=== PATIENT | female | born 1930 | race Caucasian/White ===

== ENCOUNTER 2016-09-29 05:10 | Inpatient (IN) | payer OTHER ==
[2016-09-28 15:11] VITALS: BMI 29.0
--- NOTE | 2016-09-28 21:21 | HISTORY & PHYSICAL EXAMINATION ---
DATE OF ADMISSION: 09/29/2016 CHIEF COMPLAINT: Left shoulder injury. HISTORY OF PRESENT ILLNESS: This is an 86-year-old female patient of Dr. Rutherford'ivory complaining of a fall on 09/23/2016 in her halfway facility at [facility]. She apparently fell in the hallway. She was diagnosed with a 100% displaced proximal humerus fracture and wishes to proceed with an ORIF versus fracture reversed TSA. PAST MEDICAL HISTORY: The patient is a healthy 86-year-old female. She has no heart problems, lung problems, diabetes or cancer history. SOCIAL HISTORY: Nonsmoker, nondrinker. REVIEW OF SYSTEMS: The patient complains of left shoulder pain. Otherwise, denies any shortness of breath, chest pain, nausea, vomiting or any other joint complaints. FAMILY HISTORY: Noncontributory. MEDICATIONS: Include cholecalciferol 1000 units daily, Donepezil 5 mg daily, a laxative powder as needed daily, a multivitamin daily, nystatin powder to the affected area topically as needed, oxybutynin 5 mg daily at bedtime, sertraline 25 mg daily in the morning, and Tylenol 325 mg as needed. ALLERGIES: No known drug allergies. PHYSICAL EXAMINATION: GENERAL: Well-developed, well-nourished 86-year-old female in no acute distress. She is alert and oriented x3 and pleasant. HEENT: Normocephalic, atraumatic. Extraocular motions are intact. Pupils are equal and reactive to light. HEART: Regular rate and rhythm, no murmurs appreciated. LUNGS: Clear. ABDOMEN: Soft, nontender, bowel sounds present. EXTREMITIES: Left humerus. Skin was intact. She had some ecchymosis over the fracture area. Range of motion and strength were deferred in the left upper extremity. NEUROLOGIC: Neurovascularly, she is intact in her left upper extremity. DIAGNOSES: Left proximal humerus fracture with a healthy history. No heart problems, lung problems, diabetes or cancer history. PLAN: The patient was advised of her diagnosis. Indications, risks, benefits, postop course have all been reviewed. Hope Craven wishes to proceed with a left humerus proximal ORIF versus possible reverse fracture, total shoulder arthroplasty. Necessary consent forms, preoperative testing and clearances will be obtained. HEMANTH
--- NOTE | 2016-09-28 22:52 | HISTORY & PHYSICAL EXAMINATION ---
DATE OF ADMISSION: CHIEF COMPLAINT: Left arm fracture. HISTORY OF PRESENT ILLNESS: This is an 86-year-old female patient of Dr. Fraga, complaining of a left humerus injury after a fall. The patient wishes to proceed with a left humerus proximal ORIF with a possible reverse total shoulder arthroplasty. PAST MEDICAL HISTORY: She is a healthy 86-year-old female with no health problems. SOCIAL HISTORY: Nonsmoker, nondrinker. SURGICAL HISTORY: Noncontributory. FAMILY HISTORY: Noncontributory. REVIEW OF SYSTEMS: The patient complains of left humerus fracture. Otherwise, denies any shortness of breath, chest pain, nausea, vomiting or any joint complaints. MEDICATIONS: Include ____ and a multivitamin. PHYSICAL EXAMINATION: GENERAL: Well-developed, well-nourished 86-year-old female in no acute distress. She is alert and oriented x3 and pleasant. HEENT: Normocephalic, atraumatic. Extraocular motions are intact. Pupils are equal and reactive to light. HEART: Regular rate and rhythm, no murmurs appreciated. LUNGS: Clear. ABDOMEN: Soft, nontender, bowel sounds present. EXTREMITIES: Left shoulder range of motion and strength testing were deferred. NEUROLOGIC: Neurovascularly, she is intact in her left humerus. DIAGNOSIS: Left proximal humerus fracture. Otherwise, she is a healthy 86-year-old female with no heart problems, lung problems, diabetes or cancer history. PLAN: The patient was advised of her diagnosis. Indications, risks, benefits, postop course have all been reviewed. The patient wishes to proceed with left humerus ORIF with possible reverse fracture TSA. Necessary consent forms, preoperative testing and clearances will be obtained.
[~2016-09-29] VITALS: Ht 152.4 cm; Wt 67.3 kg
[2016-09-29] VITALS (9 sets, daily range): BP systolic 127–175; BP diastolic 72–80; PULSE 81–93; TEMP 36.5–37.2; O2SAT 93–99; Ht 152.4 cm; Wt 67.3 kg
[~2016-09-29 05:10] MED LIST: ACET-1311 PO; CHOL100010 PO; DONE5TAB9 PO; METH PO; MULT-513 PO; NYSTCRE11 TOP; OXYB5TAB74 PO; SERT25TA PO
[2016-09-29 06:02] LABS: PARTIAL THROMBOPLASTIN RATIO 1.1
[2016-09-29 06:13] LABS: BUN/CREATININE RATIO 13.6 (10-20); CALCIUM 9.1 mg/dl (8.5-10.1); CREATININE 0.91 mg/dl (0.60-1.20); POTASSIUM 3.9 mmol/L (3.5-5.1)
[2016-09-29] MEDS ORDERED: ROPIVACAINE 0.5% 5 MG/ML 30 ML VIAL ONE (06:15)
[2016-09-29] MEDS ORDERED: BUPIVACAINE/EPINEPHRINE 0.25% 1:200,000 30 ML VIAL ONE (06:16)
[2016-09-29] MEDS ORDERED: MIDAZOLAM HCL 1 MG/ML 2ML VIAL ONE (06:26)
[2016-09-29] MEDS ORDERED: FENTANYL CITRATE INJ 50 MCG/1 ML 2 ML VIAL ONE (06:29)
[2016-09-29] MEDS ORDERED: BACITRACIN 50000 UNIT VIAL ONE (06:53)
[2016-09-29] MEDS ORDERED: ACETAMINOPHEN 500 MG TAB PO ONE (06:56)
[2016-09-29] MEDS ORDERED: DEXAMETHASONE 4 MG TAB ONE (06:56)
[2016-09-29] MEDS ORDERED: CeleBREX 200 MG CAP ONE (06:56)
[2016-09-29] MEDS ORDERED: CEFAZOLIN SOD 1000MG/55 ML D5W IV ONE (06:57)
[2016-09-29] MEDS ORDERED: GABAPENTIN 300 MG CAP PO ONE (06:57)
[2016-09-29] MEDS ORDERED: FAMOTIDINE 20 MG TAB ONE (06:57)
[2016-09-29] MEDS ORDERED: METOCLOPRAMIDE HCL 10 MG TAB PO ONE (06:57)
--- NOTE | 2016-09-29 07:07 | History & Physical Bridge Note ---
H&P Re-Evaluation Bridge Note: I have examined the patient, reviewed the History & Physical and in the interval since the performance of the History & Physical I have noted the following changes of clinical significance: No changes noted
[2016-09-29] MEDS ORDERED: EpHEDrine SULFATE INJ 50 MG/ML AMP IV PRN (07:45)
[2016-09-29] MEDS ORDERED: FENTANYL CITRATE INJ 50 MCG/1 ML 2 ML VIAL IV PRN (07:45)
[2016-09-29] MEDS ORDERED: ATROPINE SULFATE 0.1 MG/ML 5ML SYR IV PRN (07:45)
[2016-09-29] MEDS ORDERED: ONDANSETRON INJ 2 MG/ML 2 ML VIAL IV PRN ×2 (07:45→10:00)
[2016-09-29] MEDS ORDERED: HYDROmorphone INJ 1 MG/ML SYR IV PRN (07:45)
[2016-09-29] MEDS ORDERED: PROPOFOL IV EMULSION 10 MG/ML 20 ML VIAL IV ONE (08:04)
[2016-09-29] MEDS ORDERED: LIDOCAINE HCL 2% 2 ML VIAL (20MG/ML) ONE (08:04)
[2016-09-29] MEDS ORDERED: DEXAMETHASONE SOD INJ 4 MG/ML VIAL ONE (08:04)
[2016-09-29] MEDS ORDERED: PHENYLEPHRINE HCL INJ 10 MG/ML VIAL ONE (08:04)
[2016-09-29] MEDS ORDERED: ONDANSETRON INJ 2 MG/ML 2 ML VIAL ONE (08:04)
[2016-09-29] MEDS ORDERED: PHENYLEPHRINE 100MCG/ML 5ML SYR ONE (08:04)
[2016-09-29] MEDS ORDERED: ROCURONIUM BROMIDE 10 MG/ML 5 ML VIAL ONE (08:04)
--- NOTE | 2016-09-29 09:34 | DIAGNOSTIC IMAGING REPORT ---
INTRAOPERATIVE LEFT HUMERUS 2 VIEWS CLINICAL HISTORY: Fracture status post surgery COMPARISON STUDY: No previous studies for comparison. FINDINGS: 2 intraoperative fluoroscopic spot images are provided for interpretation. 103 seconds of fluoroscopic time was utilized. The images demonstrate internal fixation of a proximal left humeral fracture with a lateral metallic plate and multiple screws. IMPRESSION: Internally fixated proximal left humeral fracture. Electronically signed by: Kingsley Myrick M.D. 09/29/2016 9:33 AM Dictated Date/Time: 09/29/2016 9:32 AM
--- NOTE | 2016-09-29 09:41 | [facility] Operative Report ---
Operative Report Operative Date Sep 29, 2016. Pre-Operative Diagnosis Left proximal humerus fracture diplaced comminuted Post-Operative Diagnosis same Procedure(s) Performed ORIF Synthes locking plate/screws biceps tenodesis Surgeon Dr. Rutherford Team Coordinator Surgeon(s) Shaji Elder PA-C Estimated Blood Loss 30 mL Findings comminuted angulated and displaced PROXIMAL HUMERUS FX Specimens No pathology specimens per surgeon Drains 2 hemovac Anesthesia general and regional Complication(s) None Disposition Recovery Room / PACU Indications unstable displaced proximal humerus fx I attest to the content of the Intraoperative Record and any orders documented therein. Any exceptions are noted below.
[2016-09-29] MEDS ORDERED: ZOLPIDEM TARTRATE 5 MG TAB PO PRN (10:00)
[2016-09-29] MEDS ORDERED: SOD PHOSPHATE/SOD BIPHOSPHATE ENEMA 132 ML BTL PR PRN (10:00)
[2016-09-29] MEDS ORDERED: MAGNESIUM HYDROXIDE SUSP 30 ML UDC PO PRN (10:00)
[2016-09-29] MEDS ORDERED: BISACODYL 10 MG SUPP PR PRN (10:00)
[2016-09-29] MEDS ORDERED: MoRPHine SULFATE 2 MG/ML CARP IV PRN (10:00)
[2016-09-29] MEDS ORDERED: TRAMADOL HCL 50 MG TAB PO PRN (10:00)
--- NOTE | 2016-09-29 11:31 | Anesthesiology Progress Note ---
Anesthesia Post Op Note Date & Time Sep 29, 2016 at 11:31 Vital Signs Pain Intensity: 0 Vital Signs Past 12 Hours Date Time Temp Pulse Resp B/P Pulse Ox O2 Delivery O2 Flow Rate FiO2 09/29/16 10:40 36.6 83 16 155/81 98 Nasal Cannula 2 09/29/16 10:30 36.6 82 16 150/72 98 Nasal Cannula 2 09/29/16 10:20 83 16 147/74 100 Mask 10 09/29/16 10:10 83 16 155/73 100 Mask 10 09/29/16 10:00 36.5 86 16 183/91 100 Mask 10 09/29/16 05:41 36.6 81 18 175/76 93 Room Air Notes Mental Status: alert / awake / arousable, participated in evaluation Pt Amnestic to Procedure: Yes Nausea / Vomiting: adequately controlled Pain: adequately controlled Airway Patency, RR, SpO2: stable & adequate BP & HR: stable & adequate Hydration State: stable & adequate Anesthetic Complications: no major complications apparent
[2016-09-29] MEDS: D5W AND 1/2NSS + 20MEQ KCL 1,000 ML IV SCH ×2 (12:15→21:36)
[2016-09-29] MEDS: NYSTATIN/TRIAMCINOLONE CR 15 GM TUBE EXT SCH ×3 (13:00→21:00)
--- NOTE | 2016-09-29 13:15 | OPERATIVE REPORT ---
DATE OF OPERATION: 09/29/2016 INDICATION FOR PROCEDURE: The patient is a reasonably healthy 86-year-old female. She suffered a fall and fractured her left humerus. She had a closed proximal humerus fracture. She sustained a fracture of the proximal humerus with 100% displacement and the humeral head angulated posteriorly off the shaft. There was also some neck comminution noted. She has some osteopenia of the bones. The patient is in reasonably good health. No major medical problems and after extensive discussion with her family and the patient, it was felt that she would be better served by a surgical intervention than allowing the fracture to remain in this significantly displaced position with the risks of malunion, nonunion and/or chronic pain and clearly decreased use of her arm in the future. PREOPERATIVE DIAGNOSIS: Displaced comminuted proximal humerus fracture, left shoulder. POSTOPERATIVE DIAGNOSIS: Same. PROCEDURE: Open reduction and internal fixation of left proximal humerus fracture using a Synthes locking plate and screw fixation and suture repair of posterior greater tuberosity, including a biceps tenodesis. SURGEON: Dr. Rutherford. ETCHER HAND: Shaji Elder PA-C. ANESTHESIA: Regional block general. OPERATIVE PROCEDURE: The patient had regional block and general anesthetic. She was positioned on the operating room table in a 30-40 degree beach chair position with a towel roll in the medial border of her left scapula. She was positioned on a foam headrest. We did support her head with some foam and tape. She had a Leon catheter placed. She had SCDs placed. All extremities were satisfactorily padded. The left shoulder was then sterilely prepped and draped with ChloraPrep. I used fluoroscopy brought in from the top of the bed on the ipsilateral side, using the C-arm to visualize the procedure as needed. Exam demonstrates she had a foreshortened arm with the shaft displaced anteriorly with respect to the humeral head and ecchymosis and swelling about the shoulder. An anterior deltopectoral approach was performed. Skin was incised sharply. Subcutaneous flaps were elevated. Subcutaneous bleeders were cauterized. The cephalic vein was dissected out and retracted laterally with the deltoid, pectoralis was retracted medially. The shaft was significantly proximally migrated, so I had to pull that on the shaft to help with the exposure. I identified the upper pectoralis and falciform ligament and released the upper centimeter of the pectoralis for inferior exposure. I released the thickened clavipectoral fascia on the lateral margin of the strap muscles and conjoined tendon and resected some of the subacromial bursa, evacuated some old hematoma and then placed a self-retaining retractor in place. At this time, I dissected down along the shaft lateral to the pectoralis attachment, elevating the deltoid off the shaft for placement of the plate. Then I dissected out the fracture site which was comminuted and the fracture was below the level of the anatomic neck. It was a medial spike on the humeral head fragment. There were some comminuted fracture fragments that were attached to the infraspinatus and teres minor and the whole cuff tissue was still intact over the superior humeral head. The humerus was displaced posterior to the shaft, so I had to first use a rongeur and remove some of the callus and then used a periosteal elevator to free up the edges of the fracture and then had to use a [place] elevator to lever the proximal fracture up over the shaft and then we used 1 general assistant for retraction distally to put traction on the shoulder and the general assistant held retractors and then I put traction sutures in the rotator cuff anteriorly and posteriorly, superiorly and I was able to tilt back the humeral head back over the shaft, get a provisional x-ray, identify the reduction to be satisfactory and then chose a 5-hole 3.5 mm Synthes locking plate, proximal humeral fracture plate. I chose the longer plate just because of the comminution and/or osteopenia. Then we held the plate in position while we used the fluoroscopy and then put 2 K-wires into the humeral head to hold the plate to the head at the appropriate height and then went ahead and used a 3.5 cortical lag screw to lag the plate through one of the oval holes to the shaft. The humeral head just had 2 degrees of varus and some impaction but I felt with the amount of comminution that she had, this was the best we could get in terms of reduction and I felt that it was satisfactory, so I went ahead and placed locking screws into the proximal humerus. We were able to use all the proximal humeral locking screws into the humeral head besides 1 screw posteriorly where the bone had fractured away from the posterior head along with the infraspinatus attachment there. The remainder of the locking screws were placed into the shaft. The arm was taken through range of motion and we identified all the screws to be within the head on fluoroscopy and with a gentle range of motion, there was good rotational stability of the fracture. At this point, I used a #2 FiberWire, placed a Michael-Darian suture around the greater tuberosity fracture fragment posteriorly and placed that through one of the holes in the plate and sutured that to the plate and then we also sutured the anterior superior cuff with a #1 Vicryl to the posterior cuff, suturing those Vicryls across the plate to help take tension off the posterior repair of the tuberosity fragment. After irrigation with antibiotic solution with bacitracin, 2 Hemovac drains were placed. During the reduction, the biceps was tenting over the fracture, had some damage to the biceps tendon and was impeding our reduction, so I did have to tenodese the biceps which I tenodesed to the pectoralis tendon with #2 FiberWire suture in [id number] fashion and then resected the biceps proximal to that level. At the end of the procedure, we did repair the pectoralis release with [id number] #2 FiberWire sutures, passing the sutures through the biceps tendon to reinforce the biceps tenodesis. The Hemovac drains were placed deep to the deltopectoral interval and the deltopectoral interval was then closed with [id number] #1 Vicryl sutures. The subcutaneous tissue closed with interrupted 2-0 Vicryl and skin was closed with haroon. Sterile dressings were applied and a Velpeau shoulder immobilizer sling was applied. FRANCISCO Malloy, was my speech therapy assistant. He functioned as speech therapy assistant the entire procedure. He assisted in patient positioning, prepping, draping, arm positioning, soft tissue retraction, assisted in the ORIF as needed and performed the subcutaneous and skin closure and will participate in postoperative care of the patient. I attest to the content of the Intraoperative Record and any orders documented therein. Any exceptio ns are noted below.
[2016-09-29] MEDS: ACETAMINOPHEN 500 MG TAB PO SCH ×2 (13:41→21:36)
[2016-09-29] MEDS: CEFAZOLIN IV 1,000 MG in DEXTROSE 5% 50ML 50 ML IV SCH ×2 (15:53→23:17)
--- NOTE | 2016-09-29 15:53 | Medical Consult ---
"Consultation Date of Consultation: Sep 29, 2016. Attending Physician: Wil Rutherford M.D. Reason for Consultation: Post Op Medical Management History of Present Illness 86 year old female who suffered a fall on 09/23 at [facility] and was diagnosed with a displace left proximal humerus fracture. Patient was evaluated by orthopedics as an outpatient elected to proceed with ORIF today. Post operatively the patient is doing well. She reports her pain is well controlled. She denies chest pain and shortness of breath. No lightheadedness or dizziness. She denies abdominal pain, nausea, and vomiting. Sensation is intact to LUE. Bales is place draining clear yellow urine. Past Medical/Surgical History Medical Problems: (1) Dementia Status: Chronic (2) Depression Status: Chronic Family History Noncontributory due to advanced age Social History Smoking Status: Never Smoker Alcohol Use: none Housing Status: snf Allergies Coded Allergies: No Known Allergies (Unverified , 09/29/16) Home Medications \\Tylenol (Acetaminophen) 325 Mg Tab 650 Mg PO Q6H PRN Methylcellulose 1 Pow Pow 2 Gm PO DAILY Mycogen || (Nystatin/Triamcinolone Acetonide) Cr 1 Appln TOP QID Mvi With Minerals (Multivitamins/Minerals) Tab 1 Tab PO DAILY Ditropan (Oxybutynin Chloride) 5 Mg Tab 5 Mg PO BID Vitamin D (Cholecalciferol) 1,000 Inter.unit Tab 1,000 Inter.unit PO DAILY Zoloft (Sertraline HCl) 25 Mg Tab 25 Mg PO DAILY Aricept (Donepezil HCl) 5 Mg Tab 5 Mg PO DAILY TAKE THIS MEDICATION ONCE DAILY WITH LARGEST MEAL OF THE DAY Current Inpatient Medications Current Inpatient Medications Medications (Trade) Dose Ordered Sig/Hudson Route Start Time Stop Time Status Last Admin Dose Admin Cholecalciferol (Vitamin D Tab) 1,000 inter.unit DAILY PO 09/30/16 09:00 10/30/16 08:59 Donepezil HCl (Aricept Tab) 5 mg DAILY PO 09/30/16 09:00 10/30/16 08:59 Nystatin/ Triamcinolone Acetonide (Mycogen II Crm) 1 appln QID EXT 09/29/16 13:00 10/29/16 12:59 Oxybutynin Chloride (Ditropan Tab) 5 mg BID PO 09/29/16 21:00 10/29/16 20:59 Sertraline HCl (Zoloft Tab) 25 mg DAILY PO 09/30/16 09:00 10/30/16 08:59 Methylcellulose 2 gm 2 gm DAILY PO 09/30/16 09:00 10/30/16 08:59 Potassium Chloride/Dextrose/ Sod Cl (D5W And 1/2nss + 20meq KCl) 1,000 ml @ 100 mls/hr Q10H IV 09/29/16 11:30 09/30/16 11:29 09/29/16 12:15 100 MLS/HR Oxycodone HCl (Roxicodone Immediate Rel Tab) 1-2 TABS FOR PAIN 1 TABLET ... Q4H PRN PO 09/29/16 10:00 10/13/16 09:59 Morphine Sulfate (MoRPHine SULFATE INJ) 2 mg Q2H PRN IV 09/29/16 10:00 10/13/16 09:59 Acetaminophen (Tylenol Tab) 1,000 mg Q8H PO 09/29/16 14:00 10/29/16 13:59 Magnesium Hydroxide (Milk Of Magnesia Susp) 30 ml Q6H PRN PO 09/29/16 10:00 10/29/16 09:59 Bisacodyl (Dulcolax Supp) 10 mg DAILY PRN LA 09/29/16 10:00 10/29/16 09:59 Sodium Biphosphate/ Sodium Phosphate (Fleet Enema) 132 ml DAILY PRN LA 09/29/16 10:00 10/29/16 09:59 Docusate Sodium (coLACE CAP) 100 mg BID PO 09/29/16 21:00 10/29/16 20:59 Diphenhydramine HCl (Benadryl Cap) 25 mg Q8H PRN PO 09/29/16 10:00 10/29/16 09:59 Zolpidem Tartrate (Ambien Tab) 5 mg HSZ PRN PO 09/29/16 10:00 10/29/16 09:59 Multivitamins (Multivitamin Tab) 1 tab QAM PO 09/30/16 09:00 10/30/16 08:59 Ondansetron HCl (Zofran Inj) 4 mg Q6H PRN IV 09/29/16 10:00 10/29/16 09:59 Pantoprazole Sodium 40 mg 40 mg QAM PO 09/30/16 09:00 10/30/16 08:59 Cefazolin Sodium/ Dextrose (Ancef Iv/D5 50ml) 55 ml @ 100 mls/hr Q8H IV 09/29/16 16:00 09/30/16 00:32 Aspirin (Ecotrin Tab) 325 mg DAILY PO 09/30/16 09:00 10/30/16 08:59 Tramadol HCl (Ultram Tab) 50 mg Q4H PRN PO 09/29/16 10:00 10/29/16 09:59 Review of Systems 10 point review of systems was completed with the pertinent positives and negatives noted per the HPI Physical Exam Date Time Temp Pulse Resp B/P Pulse Ox O2 Delivery O2 Flow Rate FiO2 09/29/16 15:03 36.5 93 16 128/72 97 Nasal Cannula 2.0 09/29/16 14:08 89 16 127/78 98 2.0 09/29/16 13:00 86 18 138/75 97 Nasal Cannula 2.0 09/29/16 11:59 36.5 81 16 152/80 98 2.0 09/29/16 11:31 36.5 84 16 151/76 97 2.0 09/29/16 11:00 37.0 83 16 158/78 97 Nasal Cannula 2.0 09/29/16 11:00 97 Nasal Cannula 2.0 09/29/16 11:00 Nasal Cannula 2.0 09/29/16 10:40 36.6 83 16 155/81 98 Nasal Cannula 2 09/29/16 10:30 36.6 82 16 150/72 98 Nasal Cannula 2 09/29/16 10:20 83 16 147/74 100 Mask 10 09/29/16 10:10 83 16 155/73 100 Mask 10 09/29/16 10:00 36.5 86 16 183/91 100 Mask 10 09/29/16 05:41 36.6 81 18 175/76 93 Room Air General Appearance: no apparent distress Head: normocephalic Eyes: normal inspection ENT: hearing grossly normal Neck: supple, no JVD Respiratory/Chest: lungs clear, no respiratory distress, + decreased breath sounds (BL bases) Cardiovascular: regular rate, rhythm, no edema, normal peripheral pulses Abdomen/GI: normal bowel sounds, non tender, soft Genitourinary - Female: + pertinent finding (bales in place draining clear yellow urine) Extremities/Musculoskelatal: + pertinent finding (s/p LUE surgery, surgical dressing dry and intact, drain in place draining bloody drainage, CSM checks intact to LUE) Neurologic/Psych: no motor/sensory deficits, alert, + disoriented (to time) Skin: normal color, warm/dry Laboratory Results Last 24 Hours Test 09/29/16 05:40 Activated Partial Thromboplast Time 28.5 SECONDS Partial Thromboplastin Ratio 1.1 Sodium Level 141 mmol/L Potassium Level 3.9 mmol/L Chloride Level 101 mmol/L Carbon Dioxide Level 28 mmol/L Anion Gap 12.0 mmol/L Blood Urea Nitrogen 12 mg/dl Creatinine 0.91 mg/dl Est Creatinine Clear Calc Drug Dose 36.6 ml/min Estimated GFR () 65.3 Estimated GFR (Non- 56.3 BUN/Creatinine Ratio 13.6 Random Glucose 95 mg/dl Calcium Level 9.1 mg/dl Assessment & Plan S/P LEFT HUMERUS ORIF - patient s/p fall on 09/23 at [facility], found to have displaced left humerus fracture, presented for planned procedure today - POD#0 - activity and wound care orders as per ortho - pain control with bowel regimen - PT/OT - monitor H/H for acute blood loss anemia and transfuse blood products PRN DEMENTIA, DEPRESSION - continue donepezil and sertraline DVT PROPHYLAXIS - deferred to ortho Thank you for this consultation. We will follow the patient with you during their hospital stay. You can reach a [facility] via pager @ . ATTENDING ADDENDUM: I agree with the assessment and plan as stated above with the following exceptions. The patient has VSS and is sleepy but is easily aroused and conversing with me. She appears appropriate. Lung sounds are difficult to auscultate as she has her arm in a sling and is not moving much in her fresh post-op state. On my auscultation, she is clear with good breath sounds throughout. Agree with current management as stated above and per Ortho. Thank you for this consultation. We will follow her through this hospitalization. Shy Arora DO Hospitalist"
[2016-09-29] MEDS: DOCUSATE SODIUM 100 MG CAP PO SCH (20:42)
[2016-09-29] MEDS: OXYBUTYNIN CHLORIDE 5 MG TAB PO SCH (20:42)
[2016-09-30] VITALS (7 sets, daily range): BP systolic 136–173; BP diastolic 75–82; PULSE 76–94; TEMP 36.5–37.4; O2SAT 92–98
[2016-09-30] MEDS: OXYCODONE HCL IR 5 MG TAB (IMMEDIATE RELEASE) PO PRN ×2 (00:17→03:52)
[2016-09-30] MEDS: ACETAMINOPHEN 500 MG TAB PO SCH ×3 (05:38→22:06)
[2016-09-30 05:57] LABS: HEMATOCRIT 33.7 % (37-47); MEAN CELL VOLUME 88.7 fL (80-100); MEAN CORPUSCULAR HGB CONC 33.8 g/dl (32-36); MEAN PLATELET VOLUME 9.9 fL (7.4-10.4); PLATELET COUNT 303 K/uL (130-400); WHITE BLOOD COUNT 10.84 K/uL (4.8-10.8)
[2016-09-30 06:27] LABS: BUN/CREATININE RATIO 18.4 (10-20); CALCIUM 8.5 mg/dl (8.5-10.1); CREATININE 0.84 mg/dl (0.60-1.20); POTASSIUM 4.6 mmol/L (3.5-5.1)
[2016-09-30] MEDS: D5W AND 1/2NSS + 20MEQ KCL 1,000 ML IV SCH (07:35)
--- NOTE | 2016-09-30 08:04 | Orthopedic Progress Note ---
Orthopedic Progress Note Date of Service Sep 30, 2016. Subjective Post OP Day: 1 Reports: feeling well, Denies: SOB, chest pain, nausea / vomiting Additional Notes: Pleasantly confused this AM. No complaints. States that her pain has been controlled in the left shoulder. Objective capillary refill less than 2 sec., dressing C/D/I, CMS intact Sling in place. Moving fingers well. Sensation intact. Date Time Temp Pulse Resp B/P Pulse Ox O2 Delivery O2 Flow Rate FiO2 09/30/16 07:11 Room Air 09/30/16 03:55 136/82 09/30/16 03:10 37.4 82 16 172/81 98 Nasal Cannula 2.0 09/29/16 22:55 36.8 85 16 143/78 98 Nasal Cannula 2.0 09/29/16 19:30 Nasal Cannula 2.0 09/29/16 19:17 37.2 85 16 131/76 99 Nasal Cannula 1.5 09/29/16 15:15 Nasal Cannula 2.0 09/29/16 15:03 36.5 93 16 128/72 97 Nasal Cannula 2.0 09/29/16 14:08 89 16 127/78 98 2.0 09/29/16 13:00 86 18 138/75 97 Nasal Cannula 2.0 09/29/16 11:59 36.5 81 16 152/80 98 2.0 09/29/16 11:31 36.5 84 16 151/76 97 2.0 09/29/16 11:00 37.0 83 16 158/78 97 Nasal Cannula 2.0 09/29/16 11:00 97 Nasal Cannula 2.0 09/29/16 11:00 Nasal Cannula 2.0 09/29/16 10:40 36.6 83 16 155/81 98 Nasal Cannula 2 09/29/16 10:30 36.6 82 16 150/72 98 Nasal Cannula 2 09/29/16 10:20 83 16 147/74 100 Mask 10 09/29/16 10:10 83 16 155/73 100 Mask 10 09/29/16 10:00 36.5 86 16 183/91 100 Mask 10 Laboratory Results 24 Hours: Test 09/30/16 05:10 Hematocrit 33.7 % Hemoglobin 11.4 g/dL Assessment & Plan Assessment: POD 1 s/p ORIF Left Proximal Humerus/greater tuberosity; Biceps tenodesis Plan: PT/OT for ambulation Pain management. Inhouse Planning Pain Management: Ultram, Morphine, Oxy IR DVT Prophylaxis: TEDs, SCDs, ASA
--- NOTE | 2016-09-30 08:40 | Anesthesiology Progress Note ---
Anesthesia Post Op Note Date & Time Sep 30, 2016 at 08:40 Vital Signs Pain Intensity: 0.0 Vital Signs Past 12 Hours Date Time Temp Pulse Resp B/P Pulse Ox O2 Delivery O2 Flow Rate FiO2 09/30/16 07:58 36.7 76 18 152/77 94 Room Air 09/30/16 07:11 Room Air 09/30/16 03:55 136/82 09/30/16 03:10 37.4 82 16 172/81 98 Nasal Cannula 2.0 09/29/16 22:55 36.8 85 16 143/78 98 Nasal Cannula 2.0 Notes Mental Status: alert / awake / arousable, participated in evaluation Pt Amnestic to Procedure: Yes Nausea / Vomiting: adequately controlled Pain: adequately controlled Airway Patency, RR, SpO2: stable & adequate BP & HR: stable & adequate Hydration State: stable & adequate Neuraxial Anesthesia: sensory block resolved Anesthetic Complications: no major complications apparent
[2016-09-30] MEDS: DONEPEZIL HCL 5 MG TAB PO SCH (08:57)
[2016-09-30] MEDS: ASPIRIN 325 MG ECTAB PO SCH (08:57)
[2016-09-30] MEDS: SERTRALINE HCL 50 MG TAB PO SCH (08:57)
[2016-09-30] MEDS: METHYLCELLULOSE POWDER 454 GM JAR PO SCH (08:58)
[2016-09-30] MEDS: CHOLECALCIFEROL 1000 INTER.UNIT TAB PO SCH (08:58)
[2016-09-30] MEDS: MULTIVITAMIN TAB PO SCH (08:58)
[2016-09-30] MEDS: NYSTATIN/TRIAMCINOLONE CR 15 GM TUBE EXT SCH ×4 (08:58→20:45)
[2016-09-30] MEDS: OXYBUTYNIN CHLORIDE 5 MG TAB PO SCH ×2 (08:58→20:46)
[2016-09-30] MEDS: DOCUSATE SODIUM 100 MG CAP PO SCH ×2 (08:58→20:46)
[2016-09-30] MEDS: PANTOprazole SOD 40 MG TAB PO SCH (08:58)
--- NOTE | 2016-09-30 12:20 | Progress Note ---
Internal Med Progress Note Date of Service: Sep 30, 2016. Provider Documentation: SUBJECTIVE: Patient is pleasant, sitting in chair. Awake, oriented x 2. Denies any pain at surgical site and wants to be discharged No chest pain, sob, cough, fever, chills. OBJECTIVE: Vital Signs-as noted below Exam: General-AAOX2, no distress Neck-Supple Lungs-AEBE, no wheezing, crackles Heart-S1, S2 normal, no murmur Abdomen-Soft, non tender, non distended, BS present Extremities-Left humerus fracture repair, Drain + Lab data as noted below. ASSESSMENT & PLAN: S/P LEFT HUMERUS ORIF - patient s/p fall on 09/23 at [facility], found to have displaced left humerus fracture. - POD#1 - activity and wound care orders as per ortho - pain control with bowel regimen- avoid narcotics when possible as higher risk for confusion with hx of dementia - PT/OT- per primary team - H & H - stable DEMENTIA, DEPRESSION - continue donepezil and sertraline - More confused than baseline per daughter, but overall pleasant, awake, oriented x 2 DVT PROPHYLAXIS - deferred to ortho Vital Signs: Date Time Temp Pulse Resp B/P Pulse Ox O2 Delivery O2 Flow Rate FiO2 09/30/16 11:57 36.7 94 18 144/78 93 Room Air 09/30/16 10:11 94 Room Air 09/30/16 07:58 36.7 76 18 152/77 94 Room Air 09/30/16 07:11 Room Air 09/30/16 03:55 136/82 09/30/16 03:10 37.4 82 16 172/81 98 Nasal Cannula 2.0 09/29/16 22:55 36.8 85 16 143/78 98 Nasal Cannula 2.0 09/29/16 19:30 Nasal Cannula 2.0 09/29/16 19:17 37.2 85 16 131/76 99 Nasal Cannula 1.5 09/29/16 15:15 Nasal Cannula 2.0 09/29/16 15:03 36.5 93 16 128/72 97 Nasal Cannula 2.0 09/29/16 14:08 89 16 127/78 98 2.0 09/29/16 13:00 86 18 138/75 97 Nasal Cannula 2.0 Lab Results: Results Past 24 Hours Test 3/8/17 05:10 Range/Units White Blood Count 10.84 4.8-10.8 K/uL Red Blood Count 3.80 4.2-5.4 M/uL Hemoglobin 11.4 12.0-16.0 g/dL Hematocrit 33.7 37-47 % Mean Corpuscular Volume 88.7 80-100 fL Mean Corpuscular Hemoglobin 30.0 25-34 pg Mean Corpuscular Hemoglobin Concent 33.8 32-36 g/dl RDW Standard Deviation 47.6 36.4-46.3 fL RDW Coefficient of Variation 14.6 11.5-14.5 % Platelet Count 303 130-400 K/uL Mean Platelet Volume 9.9 7.4-10.4 fL Sodium Level 138 136-145 mmol/L Potassium Level 4.6 3.5-5.1 mmol/L Chloride Level 102 98-107 mmol/L Carbon Dioxide Level 28 21-32 mmol/L Anion Gap 8.0 3-11 mmol/L Blood Urea Nitrogen 15 7-18 mg/dl Creatinine 0.84 0.60-1.20 mg/dl Est Creatinine Clear Calc Drug Dose 39.6 ml/min Estimated GFR () 71.9 Estimated GFR (Non- 62.1 BUN/Creatinine Ratio 18.4 10-20 Random Glucose 109 70-99 mg/dl Calcium Level 8.5 8.5-10.1 mg/dl
[2016-10-01 00:12] VITALS: BP 155/73; PULSE 83
[2016-10-01] MEDS: ACETAMINOPHEN 500 MG TAB PO SCH (05:49)
[2016-10-01 05:50] LABS: HEMATOCRIT 33.1 % (37-47); MEAN CELL VOLUME 87.8 fL (80-100); MEAN CORPUSCULAR HEMOGLOBIN 29.7 pg (25-34); MEAN CORPUSCULAR HGB CONC 33.8 g/dl (32-36); MEAN PLATELET VOLUME 9.5 fL (7.4-10.4); PLATELET COUNT 270 K/uL (130-400); RED BLOOD COUNT 3.77 M/uL (4.2-5.4); WHITE BLOOD COUNT 8.19 K/uL (4.8-10.8)
[2016-10-01 06:17] LABS: BUN/CREATININE RATIO 17.2 (10-20); CALCIUM 8.5 mg/dl (8.5-10.1); CREATININE 0.89 mg/dl (0.60-1.20)
[2016-10-01 07:02] VITALS: BP 170/79; PULSE 92; TEMP 36.8; O2SAT 93
--- NOTE | 2016-10-01 07:12 | Orthopedic Progress Note ---
Orthopedic Progress Note Date of Service Oct 01, 2016. Subjective Post OP Day: 2 Reports: pain controlled w PO medications, Denies: SOB, calf pain, chest pain, complaints, light headedness, nausea / vomiting Objective N/V intact, capillary refill less than 2 sec., incision C/D/I fingers mobile, sling in tact. Date Time Temp Pulse Resp B/P Pulse Ox O2 Delivery O2 Flow Rate FiO2 10/01/16 07:02 36.8 92 18 170/79 93 Room Air 10/01/16 00:12 Room Air 10/01/16 00:12 83 155/73 09/30/16 23:35 36.9 86 16 173/80 94 Room Air 09/30/16 15:20 Room Air 09/30/16 15:01 36.5 86 16 159/75 92 Room Air 09/30/16 11:57 36.7 94 18 144/78 93 Room Air 09/30/16 10:11 94 Room Air 09/30/16 07:58 36.7 76 18 152/77 94 Room Air 09/30/16 07:11 Room Air Laboratory Results 24 Hours: Test 10/01/16 05:10 Hematocrit 33.1 % Hemoglobin 11.2 g/dL Assessment & Plan Assessment: POD 2 s/p ORIF Left Proximal Humerus/greater tuberosity; Biceps tenodesis Plan: PT/OT for ambulation Pain management, avoid narcotics. Return to SNF today if ok w medicine. Inhouse Planning Pain Management: PO Tylenol DVT Prophylaxis: TEDs, SCDs, ASA Discharge Planning Discharge Planning: senior care facility Pain Management: PO Tylenol DVT Prophylaxis: ASA
[2016-10-01] MEDS ORDERED: MOMLX PO (07:16)
[2016-10-01] MEDS ORDERED: DLCS PR (07:16)
[2016-10-01] MEDS ORDERED: METH PO (07:16)
[2016-10-01] MEDS ORDERED: MULT-513 PO (07:16)
[2016-10-01] MEDS ORDERED: VTMD1000 PO (07:16)
[2016-10-01] MEDS ORDERED: DONE5TAB9 PO (07:16)
[2016-10-01] MEDS ORDERED: CLC100 PO (07:16)
[2016-10-01] MEDS ORDERED: ASPEC325 PO (07:16)
[2016-10-01] MEDS ORDERED: NYSTCRE11 TOP (07:16)
[2016-10-01] MEDS ORDERED: SERT25TA PO (07:16)
[2016-10-01] MEDS ORDERED: OXYB5TAB74 PO (07:16)
[2016-10-01] MEDS ORDERED: ACET-1138 PO (07:16)
--- NOTE | 2016-10-01 07:24 | Discharge Instructions ---
Discharge Instructions Date of Service Oct 01, 2016. Admission Reason for Admission: Left Proximal Humerus Fracture Discharge Discharge Diagnosis / Problem: Shoulder ORIF Discharge Goals Goal(s): Improve function Activity Recommendations Activity Level: Assistance Required Therapies: Physical Therapy (Gait training, NO shoulder PT, sling at all times. ) . Additional Information Patient informed of condition: Yes Advance Directives: Yes DNR: No Level of Care: Skilled Communicable Disease: No Prognosis: Stable Instructions / Follow-Up Instructions / Follow-Up Sling at all times, may loosen to move elbow ONLY with supervision. NO shoulder motion. Dry sterile dressing change and wound check daily left shoulder. May sponge bath around incision, do not submerge incision under water. PT for gait training, will need assistance. Follow up with Jose M Navas 12-14 days post op at [facility], call [phone] to confirm appt. Current Hospital Diet Patient's current hospital diet: Regular Diet Discharge Diet Recommended Diet: Regular Diet Procedures Procedures Performed: Left Proximal Humerus Open Reduction Internal Fixation Pending Studies Studies pending at discharge: no Medical Emergencies . Who to Call and When: Medical Emergencies: If at any time you feel your situation is an emergency, please call 911 immediately. . Non-Emergent Contact Non-Emergency issues call your: Primary Care Provider . . "Provider Documentation" section prepared by Shaji Elder. Core Measure Problem Core Measures: None [place] Drug Monitoring Program Search Results: patient reviewed within database, no issues identified
[2016-10-01] MEDS: ASPIRIN 325 MG ECTAB PO SCH (08:44)
[2016-10-01] MEDS: DOCUSATE SODIUM 100 MG CAP PO SCH (08:44)
[2016-10-01] MEDS: OXYBUTYNIN CHLORIDE 5 MG TAB PO SCH (08:45)
[2016-10-01] MEDS: MULTIVITAMIN TAB PO SCH (08:45)
[2016-10-01] MEDS: SERTRALINE HCL 50 MG TAB PO SCH (08:45)
[2016-10-01] MEDS: DONEPEZIL HCL 5 MG TAB PO SCH (08:45)
[2016-10-01] MEDS: METHYLCELLULOSE POWDER 454 GM JAR PO SCH (08:46)
[2016-10-01] MEDS: NYSTATIN/TRIAMCINOLONE CR 15 GM TUBE EXT SCH (08:46)
[2016-10-01] MEDS: PANTOprazole SOD 40 MG TAB PO SCH (08:46)
[2016-10-01] MEDS: CHOLECALCIFEROL 1000 INTER.UNIT TAB PO SCH (08:46)
--- NOTE | 2016-10-01 10:29 | Progress Note ---
Internal Med Progress Note Date of Service: Oct 01, 2016. Provider Documentation: SUBJECTIVE: Patient is pleasant, sitting in chair. Awake, oriented x 2. Denies any pain at surgical site and wants to be discharged No chest pain, sob, cough, fever, chills. OBJECTIVE: Vital Signs-as noted below Exam: General-AAOX2, no distress Neck-Supple Lungs-AEBE, no wheezing, crackles Heart-S1, S2 normal, no murmur Abdomen-Soft, non tender, non distended, BS present Extremities-Left humerus fracture repair, Drain + Lab data as noted below. ASSESSMENT & PLAN: S/P LEFT HUMERUS ORIF - patient s/p fall on 09/[address] [facility], found to have displaced left humerus fracture. - POD#2 - activity and wound care orders as per ortho - pain control with bowel regimen- avoid narcotics when possible as higher risk for confusion with hx of dementia - PT/OT- per primary team - H & H - stable ELEVATED BP No prior diagnosis of Hypertension, but pressures between 150-170s -Will start her on low dose amlodipine 5 mg daily -Monitor DEMENTIA, DEPRESSION - continue donepezil and sertraline - More confused than baseline per daughter, but overall pleasant, awake, oriented x 2 DVT PROPHYLAXIS - deferred to ortho Vital Signs: Date Time Temp Pulse Resp B/P Pulse Ox O2 Delivery O2 Flow Rate FiO2 10/01/16 07:35 Room Air 10/01/16 07:02 36.8 92 18 170/79 93 Room Air 10/01/16 00:12 Room Air 10/01/16 00:12 83 155/73 09/30/16 23:35 36.9 86 16 173/80 94 Room Air 09/30/16 15:20 Room Air 09/30/16 15:01 36.5 86 16 159/75 92 Room Air 09/30/16 11:57 36.7 94 18 144/78 93 Room Air Lab Results: Results Past 24 Hours Test 10/01/16 05:10 Range/Units White Blood Count 8.19 4.8-10.8 K/uL Red Blood Count 3.77 4.2-5.4 M/uL Hemoglobin 11.2 12.0-16.0 g/dL Hematocrit 33.1 37-47 % Mean Corpuscular Volume 87.8 80-100 fL Mean Corpuscular Hemoglobin 29.7 25-34 pg Mean Corpuscular Hemoglobin Concent 33.8 32-36 g/dl RDW Standard Deviation 47.4 36.4-46.3 fL RDW Coefficient of Variation 14.8 11.5-14.5 % Platelet Count 270 130-400 K/uL Mean Platelet Volume 9.5 7.4-10.4 fL Sodium Level 142 136-145 mmol/L Potassium Level 4.0 3.5-5.1 mmol/L Chloride Level 106 98-107 mmol/L Carbon Dioxide Level 28 21-32 mmol/L Anion Gap 8.0 3-11 mmol/L Blood Urea Nitrogen 15 7-18 mg/dl Creatinine 0.89 0.60-1.20 mg/dl Est Creatinine Clear Calc Drug Dose 37.4 ml/min Estimated GFR () 67.1 Estimated GFR (Non- 57.9 BUN/Creatinine Ratio 17.2 10-20 Random Glucose 88 70-99 mg/dl Calcium Level 8.5 8.5-10.1 mg/dl
[2016-10-01] MEDS ORDERED: AMLODIPINE BESYLATE 5 MG TAB PO ONE (11:00)
[2016-10-01 12:11] VITALS: BP 170/79; PULSE 92; TEMP 36.8; O2SAT 93
[2016-10-02] MEDS ORDERED: AMLODIPINE BESYLATE 5 MG TAB PO SCH (09:00)
[2017-01-31] MEDS ORDERED: LVQ500 PO (11:27)
[2017-01-31] MEDS ORDERED: LEVO-17 PO (14:29)
== END 2016-10-01 13:15 | DRG 494 ==
LOC: ENRESERVTM → ENRESERVDT → C.ACU 05:10 → C.3E 09:55
PROVIDERS: ADMIT Orthopaedic Surgery Sports Medicine; ATTEND Orthopaedic Surgery Sports Medicine
PROC: 0PSG04Z Reposition Left Humeral Shaft with Internal Fixation Device, Open Approach (ICD-10-PCS; principal; 2016-09-29 07:00)
PROC: 0LQ40ZZ Repair Left Upper Arm Tendon, Open Approach (ICD-10-PCS; principal; 2016-09-29 07:00)
DX: S42.302A Unspecified fracture of shaft of humerus, left arm, initial encounter for closed fracture (principal); W19.XXXA Unspecified fall, initial encounter; Y92.128 Other place in nursing home as the place of occurrence of the external cause; R03.0 Elevated blood-pressure reading, without diagnosis of hypertension; F03.90 Unspecified dementia, unspecified severity, without behavioral disturbance, psychotic disturbance, mood disturbance, and anxiety; F32.9 Major depressive disorder, single episode, unspecified

== ENCOUNTER 2017-01-28 16:26 | Inpatient (IN) | payer OTHER ==
[~2017-01-28] VITALS: Ht 149.9 cm; Wt 65.0 kg
[~2017-01-28 16:26] MED LIST changes: +ACET-1138 PO; -ACET-1311 PO; +ASPEC325 PO; -CHOL100010 PO; +CLC100 PO; +DLCS PR; +MOMLX PO; +VTMD1000 PO
[2017-01-28] MEDS ORDERED: ONDANSETRON INJ 2 MG/ML 2 ML VIAL IV STA (16:39)
--- NOTE | 2017-01-28 17:02 | DIAGNOSTIC IMAGING REPORT ---
CHEST ONE VIEW PORTABLE CLINICAL HISTORY: Sepsis COMPARISON STUDY: 04/02/2016 FINDINGS: There are extensive calcified mediastinal and hilar lymph nodes. The heart is the upper limits of normal in size. There is no failure. There is stable interstitial thickening. Since the prior study the patient has developed subtle airspace opacities the left lung base, atelectatic versus inflammatory. Postsurgical changes involve the left proximal humerus. There is no significant pleural fluid.[ IMPRESSION: 1. Interval development of subtle left basal airspace opacities, atelectatic versus inflammatory. Electronically signed by: Kingsley Myrick M.D. 01/28/2017 5:01 PM Dictated Date/Time: 01/28/2017 4:59 PM
--- NOTE | 2017-01-28 17:11 | EMERGENCY ROOM VISIT NOTE ---
History Report prepared by Karrie: Yelena Parker Under the Supervision of: Dr. Eliseo Acosta D.O. First contact with patient: 16:30 Chief Complaint: VOMITING Stated Complaint: VOMITING History of Present Illness The patient is an 86 year old female who presents to the Emergency Room with complaints of an episode of vomiting starting today. The patient's daughter states that she lives at [facility] and they noticed that she was acting differently last night. Her daughter notes that she doesn't seem herself now either. The daughter reports that [facility] employees stated she needed cues which is not normal. The patient states that she has vomited twice and that she is having diarrhea. She states that she felt fine yesterday. The patient complains of nausea. The patient denies abdominal pain, chest pain, shortness of breath, headache, cough, urinary symptoms, and a fever. The patient denies being on any recent antibiotics or her feet feeling swollen. Source of History: patient, family Onset: today Position: other (global) Quality: other (global) Timing: other (episode) Associated Symptoms: + nausea, No fevers, No headache, No cough, No chest pain, No SOB, No abdominal pain, No urinary symptoms Note: The patient denies her feet feeling swollen. Review of Systems See HPI for pertinent positives & negatives. A total of 10 systems reviewed and were otherwise negative. Past Medical & Surgical Medical Problems: (1) Dementia (2) Depression Surgical Problems: (1) History of cataract surgery (2) History of tonsillectomy Family History Noncontributory due to advanced age Social History Smoking Status: Never Smoker Alcohol Use: none Drug Use: none Housing Status: penitentiary Occupation Status: retired Current/Historical Medications Scheduled Acetaminophen (Tylenol Extra Strength), 1,000 MG PO Q8H Aspirin (Aspirin Ec), 81 MG PO DAILY Cholecalciferol (Vitamin D3), 1,000 INTER.UNIT PO DAILY Donepezil HCl (Aricept), 5 MG PO DAILY Lisinopril (Prinivil), 5 MG PO DAILY Multivitamins/Minerals (Mvi With Minerals), 1 TAB PO DAILY Oxybutynin Chloride (Ditropan), 5 MG PO BID Sertraline (Zoloft), 25 MG PO DAILY Allergies Coded Allergies: No Known Allergies (Unverified , 01/28/17) Physical Exam Vital Signs Date Time Temp Pulse Resp B/P (MAP) Pulse Ox O2 Delivery O2 Flow Rate FiO2 01/28/17 20:26 79 12 144/59 95 Room Air 01/28/17 19:23 85 20 122/64 93 Room Air 01/28/17 17:43 82 16 114/63 92 Room Air 01/28/17 17:32 81 01/28/17 17:22 Room Air 01/28/17 16:29 36.7 90 18 96/63 94 Room Air Physical Exam GENERAL: Patient is awake, alert, and in no acute distress. Patient is resting comfortably and showing no signs of anxiety EYES: The conjunctivae are clear. The pupils are round and reactive. EARS, NOSE, MOUTH AND THROAT: The nose is without any evidence of any deformity. Mucous membranes are dry, tongue is midline NECK: The neck is nontender and supple. RESPIRATORY: Lung sounds are diminished in left lung field, mild tachypnea noted , but no conversational dyspnea. CARDIOVASCULAR: Regular rate and rhythm noted there no murmurs rubs or gallops normal S1 normal S2 GASTROINTESTINAL: The abdomen is mildly distended, but soft. Bowel sounds are present in all quadrants. Abdomen is nontender. No guarding or rigidity noted. MUSCULOSKELETAL/EXTREMITIES: There is no evidence of gross deformity full range of motion is noted in the hips and shoulders SKIN: There is no obvious evidence of any rash. There are no petechiae, pallor or cyanosis noted. Pedal edema bilaterally. NEUROLOGIC: Patient is awake alert and oriented x3. Strength is symmetric. No facial droop. Medical Decision & Procedures ER Provider Diagnostic Interpretation: Radiology results as stated below per my review and radiologist interpretation: CHEST ONE VIEW PORTABLE CLINICAL HISTORY: Sepsis COMPARISON STUDY: 04/02/2016 FINDINGS: There are extensive calcified mediastinal and hilar lymph nodes. The heart is the upper limits of normal in size. There is no failure. There is stable interstitial thickening. Since the prior study the patient has developed subtle airspace opacities the left lung base, atelectatic versus inflammatory. Postsurgical changes involve the left proximal humerus. There is no significant pleural fluid.[ IMPRESSION: 1. Interval development of subtle left basal airspace opacities, atelectatic versus inflammatory. Electronically signed by: Kingsley Myrick M.D. 01/28/2017 5:01 PM Dictated Date/Time: 01/28/2017 4:59 PM ABDOMEN 2 VIEWS CLINICAL HISTORY: vomiting COMPARISON STUDY: Chest x-ray dated 01/28/2017 FINDINGS: Supine and decubitus views the abdomen reveal moderate fecal retention. There are no transition zones indicate bowel obstruction. There is no free air visualized on the decubitus study. There is a 1 cm right upper quadrant calcification, likely representing a renal calculus. A gallstone could potentially appear similar. IMPRESSION: 1. No evidence of bowel obstruction. No evidence of free intraperitoneal air 2. Fecal retention 3. Upper pole right renal calculus versus gallstone Electronically signed by: Kingsley Myrick M.D. 01/28/2017 7:11 PM Dictated Date/Time: 01/28/2017 7:[address] SCAN OF THE ABDOMEN AND PELVIS WITHOUT CONTRAST CLINICAL HISTORY: vomiting COMPARISON STUDY: No previous studies for comparison. TECHNIQUE: CT scan of the abdomen and pelvis was performed from the lung bases to the proximal femurs. Images are reviewed in the axial, sagittal, and coronal planes. IV contrast was not administered for this examination. CT DOSE: 326.17 mGy.cm FINDINGS: Lower chest: There are calcified right infrahilar lymph nodes. There are basilar atelectatic changes. There is respiratory motion artifact. There is a small hiatal hernia. There is mild distal esophageal wall thickening. Liver: The unenhanced liver is normal in size, contour, and attenuation. There is no intrahepatic biliary ductal dilatation. Gallbladder: There is a 1 cm right upper quadrant calcification. This unclear whether this is within the gallbladder or adjacent to gallbladder. The study is unfortunately compromised due to motion artifact. Spleen: There are scattered splenic granulomas. Pancreas: Unremarkable. Adrenal glands: Unremarkable. Kidneys: No renal, ureteral, or bladder calculi are visualized. Bowel: There are no transition zones to indicate bowel obstruction. There are no findings to indicate acute appendicitis. There are no findings to indicate acute diverticulitis. Evaluation the bowel is limited due to motion artifact, and the absence of intravenous and oral contrast. There is borderline rectal wall thickening. Peritoneum: There is no intraperitoneal free air or abdominal ascites. Vasculature: The abdominal aorta is normal in course and caliber. Adenopathy: None. Pelvic viscera: The bladder, and pelvic viscera are unremarkable. Skeletal structures: There is an old left pubic ramus fracture. The bones are osteopenic. IMPRESSION: 1. Technically limited study secondary to motion artifact, and the lack of intravenous and oral contrast 2. Equivocal gallstone 3. No renal, ureteral, or bladder calculi identified 4. No evidence of bowel obstruction. No evidence of free air 5. Small hiatal hernia with mild distal esophageal wall thickening 6. Borderline rectal wall thickening 7. No evidence of acute diverticulitis 8. Nonvisualization the appendix, but no evidence of acute appendicitis 9. Fecal retention Electronically signed by: Kingsley Myrick M.D. 01/28/2017 7:25 PM Dictated Date/Time: 01/28/2017 7:19 PM Laboratory Results 01/28/17 17:05 Red Blood Count 4.64, Mean Corpuscular Volume 87.9, Mean Corpuscular Hemoglobin 29.5, Mean Corpuscular Hemoglobin Concent 33.6, Mean Platelet Volume 9.7, Neutrophils (%) (Auto) 72.4, Lymphocytes (%) (Auto) 16.6, Monocytes (%) (Auto) 10.0, Eosinophils (%) (Auto) 0.7, Basophils (%) (Auto) 0.1, Neutrophils # (Auto ) 8.40, Lymphocytes # (Auto) 1.92, Monocytes # (Auto) 1.16, Eosinophils # (Auto ) 0.08, Basophils # (Auto) 0.01 01/28/17 17:05 Test 01/28/17 17:05 01/28/17 17:14 01/28/17 17:40 White Blood Count 11.59 K/uL (4.8-10.8) Red Blood Count 4.64 M/uL (4.2-5.4) Hemoglobin 13.7 g/dL (12.0-16.0) Hematocrit 40.8 % (37-47) Mean Corpuscular Volume 87.9 fL (80-100) Mean Corpuscular Hemoglobin 29.5 pg (25-34) Mean Corpuscular Hemoglobin Concent 33.6 g/dl (32-36) Platelet Count 358 K/uL (130-400) Mean Platelet Volume 9.7 fL (7.4-10.4) Neutrophils (%) (Auto) 72.4 % Lymphocytes (%) (Auto) 16.6 % Monocytes (%) (Auto) 10.0 % Eosinophils (%) (Auto) 0.7 % Basophils (%) (Auto) 0.1 % Neutrophils # (Auto) 8.40 K/uL (1.4-6.5) Lymphocytes # (Auto) 1.92 K/uL (1.2-3.4) Monocytes # (Auto) 1.16 K/uL (0.11-0.59) Eosinophils # (Auto) 0.08 K/uL (0-0.5) Basophils # (Auto) 0.01 K/uL (0-0.2) RDW Standard Deviation 45.5 fL (36.4-46.3) RDW Coefficient of Variation 14.1 % (11.5-14.5) Immature Granulocyte % (Auto) 0.2 % Immature Granulocyte # (Auto) 0.02 K/uL (0.00-0.02) Erythrocyte Sedimentation Rate 23 mm/hr (0-21) Prothrombin Time 10.5 SECONDS (9.0-12.0) Prothromb Time International Ratio 1.0 (0.9-1.1) Activated Partial Thromboplast Time 29.7 SECONDS (21.0-31.0) Partial Thromboplastin Ratio 1.1 Anion Gap 4.0 mmol/L (3-11) Est Creatinine Clear Calc Drug Dose 24.5 ml/min Estimated GFR () 42.4 Estimated GFR (Non- 36.6 BUN/Creatinine Ratio 13.1 (10-20) Calcium Level 9.5 mg/dl (8.5-10.1) Phosphorus Level 3.0 mg/dl (2.5-4.9) Magnesium Level 2.2 mg/dl (1.8-2.4) Total Bilirubin 0.8 mg/dl (0.2-1) Aspartate Amino Transf (AST/SGOT) 8 U/L (15-37) Alanine Aminotransferase (ALT/SGPT) 25 U/L (12-78) Alkaline Phosphatase 88 U/L (45-117) Total Creatine Kinase 34 U/L (26-192) Creatine Kinase MB < 0.5 ng/ml (0.5-3.6) Creatine Kinase MB Ratio (0-3.0) Troponin I < 0.015 ng/ml (0-0.045) C-Reactive Protein 3.31 mg/dl (0-0.29) Pro-B-Type Natriuretic Peptide 583 pg/ml (0-1800) Total Protein 6.6 gm/dl (6.4-8.2) Albumin 3.4 gm/dl (3.4-5.0) Globulin 3.2 gm/dl (2.5-4.0) Albumin/Globulin Ratio 1.1 (0.9-2) Lipase 131 U/L (73-393) Venous Blood pH 7.44 (7.36-7.41) Venous Blood Partial Pressure CO2 39 mmHg (38.0-50.0) Venous Blood Partial Pressure O2 35 mmHg Venous Blood HCO3 26 mmol/L Venous Blood Oxygen Saturation 71.1 % Venous Blood Base Excess 2.0 mmol/L Bedside Lactic Acid Venous 1.79 mmol/L (0.90-1.70) Urine Color DK YELLOW Urine Appearance CLOUDY (CLEAR) Urine pH 6.5 (4.5-7.5) Urine Specific [place] 1.019 (1.000-1.030) Urine Protein 2+ (NEG) Urine Glucose (UA) NEG (NEG) Urine Ketones TRACE (NEG) Urine Occult Blood NEG (NEG) Urine Nitrite POS (NEG) Urine Bilirubin NEG (NEG) Urine Urobilinogen NEG (NEG) Urine Leukocyte Esterase MODERATE (NEG) Urine WBC (Auto) >30 /hpf (0-5) Urine RBC (Auto) 0-4 /hpf (0-4) Urine Hyaline Casts (Auto) 10-30 /lpf (0-5) Urine Epithelial Cells (Auto) 10-20 /lpf (0-5) Urine Bacteria (Auto) 4+ (NEG) Urine Pathogenic Casts 0-3 WBC CASTS /lpf (0) Laboratory results per my review. Medications Administered Medications (Trade) Dose Ordered Sig/[place] Route Start Time Stop Time Status Last Admin Dose Admin Levofloxacin (Levaquin / D5W) 750 mg NOW STAT IV 01/28/17 17:56 01/28/17 17:57 DC 01/28/17 18:08 750 MG Sodium Chloride 1,000 ml @ 999 mls/hr Q1H1M STAT IV 01/28/17 18:31 01/28/17 19:31 DC 01/28/17 19:22 999 MLS/HR Sodium Chloride 1,000 ml @ 125 mls/hr Q8H STAT IV 01/28/17 18:31 01/29/17 02:30 01/28/17 19:22 125 MLS/HR ECG Indication: vomiting Rate (beats per minute): 81 Rhythm: normal sinus Findings: no ectopy, other (no acute ST segment abnormalities, LVH by voltage criteria) Comparison ECG Date: 04/02/2016 Change: no significant change ED Course 1632: The patient was evaluated in room B10. A complete history and physical examination were performed. 163: Ordered Zofran Inj 4 mg IV. 175: Ordered Levofloxacin 750 mg IV. 1830: Ordered NSS 1000 ml @ 125 mls/hr IV, NSS 1000 ml @ 999 mls/hr IV. 183: I discussed the patient's case with Dr. Westbrook. The patient will be evaluated for further management. Medical Decision Medication Reconciliation: I attest that I have personally reviewed the patient' s current medications list. Blood Pressure Screening: No issues were found with the patient's blood pressure. Differential diagnosis: Etiologies such as gastroenteritis, food borne illness, infections, appendicitis , diverticulitis, inflammatory bowel disease, obstruction, GI bleed, biliary pathology, as well as others were entertained. The patient is an 86-year-old female who presented to the emergency department for an evaluation of nausea and vomiting. She had a couple small loose bowel movements prior to arrival. This does not appear to be consistent with an acute surgical abdomen on physical exam. I discussed the patient's laboratory and radiographic studies with her and her family members. She was treated with IV fluids and IV antibiotics as well as IV antiemetics. At this time the patient appears to have signs of pneumonia as well as urinary tract infection. For this reason I discussed her case with the on-call [facility] hospitalist. They've agreed to evaluate the patient in the emergency department for further management and disposition. Consults Time Called: [phone] Consulting Physician: Dr. Westbrook Returned Call: [phone] I discussed the patient's case with Dr. Westbrook. The patient will be evaluated for further management. Impression Primary Impression: Pneumonia Additional Impressions: Dehydration Nausea & vomiting UTI (urinary tract infection) Scribe Attestation The scribe's documentation has been prepared under my direction and personally reviewed by me in its entirety. I confirm that the note above accurately reflects all work, treatment, procedures, and medical decision making performed by me. Departure Information Dispostion Being Evaluated By Hospitalist Paulette PhillipsO. (PCP) Patient Instructions My [facility] Problem Qualifiers Primary Impression: Pneumonia Pneumonia type: due to unspecified organism Laterality: left Lung location : lower lobe of lung Qualified Codes: J18.1 - Lobar pneumonia, unspecified organism Additional Impressions: Nausea & vomiting Vomiting type: unspecified Vomiting Intractability: non-intractable Qualified Codes: R11.2 - Nausea with vomiting, unspecified UTI (urinary tract infection) Urinary tract infection type: site unspecified Hematuria presence: without hematuria Qualified Codes: N39.0 - Urinary tract infection, site not specified
[2017-01-28] MEDS ORDERED: ASPI81TA28 PO (17:13)
[2017-01-28] MEDS ORDERED: LISI-729 PO (17:13)
[2017-01-28 17:32] LABS: VEN BLD GAS O2 SATURATION 71.1 %
[2017-01-28 17:38] LABS: BASO % 0.1 %; BASO ABS # 0.01 K/uL (0-0.2); COMPLETE YES; EOS % 0.7 %; HEMATOCRIT 40.8 % (37-47); IG% 0.2 %; LYMPH % 16.6 %; LYMPH ABS # 1.92 K/uL (1.2-3.4); MEAN CELL VOLUME 87.9 fL (80-100); MEAN CORPUSCULAR HEMOGLOBIN 29.5 pg (25-34); MEAN CORPUSCULAR HGB CONC 33.6 g/dl (32-36); MEAN PLATELET VOLUME 9.7 fL (7.4-10.4); NEUT % 72.4 %; PLATELET COUNT 358 K/uL (130-400); RED BLOOD COUNT 4.64 M/uL (4.2-5.4); WHITE BLOOD COUNT 11.59 K/uL (4.8-10.8)
[2017-01-28 17:45] LABS: PARTIAL THROMBOPLASTIN RATIO 1.1; PROTHROMBIN TIME (PATIENT) 10.5 SECONDS (9.0-12.0)
[2017-01-28] MEDS ORDERED: LEVAQUIN 750MG / 150ML D5W IV STA (17:56)
[2017-01-28 17:58] LABS: ALT/SGPT 25 U/L (12-78); AST/SGOT 8 U/L (15-37); BLOOD UREA NITROGEN 17 mg/dl (7-18); BUN/CREATININE RATIO 13.1 (10-20); CALCIUM 9.5 mg/dl (8.5-10.1); CARBON DIOXIDE 30 mmol/L (21-32); CHLORIDE 101 mmol/L (98-107); GLUCOSE 101 mg/dl (70-99); MAGNESIUM 2.2 mg/dl (1.8-2.4); POTASSIUM 4.1 mmol/L (3.5-5.1); SODIUM 135 mmol/L (136-145)
[2017-01-28 18:01] LABS: ALB/GLOB RATIO 1.1 (0.9-2); ALKALINE PHOSPHATASE 88 U/L (45-117); C-REACTIVE PROTEIN 3.31 mg/dl (0-0.29)
[2017-01-28 18:18] LABS: URINE APPEARANCE CLOUDY (CLEAR); URINE BILIRUBIN NEG (NEG); URINE COLOR DK YELLOW; URINE NITRITE POS (NEG); URINE PH 6.5 (4.5-7.5); URINE SPECIFIC GRAVITY 1.019 (1.000-1.030); UROBILINOGEN NEG (NEG); ZZURINE CULT IF INDIC CATH YES
[2017-01-28 18:30] LABS: MANUAL MICROSCOPIC REQUIRED? NO; REVIEW REQ? YES
[2017-01-28] MEDS ORDERED: SODIUM CHLORIDE 0.9% 1000ML 1,000 ML IV STA ×2 (18:31)
[2017-01-28 18:45] LABS: URINE PATH CASTS 0-3 WBC CASTS /lpf (0)
--- NOTE | 2017-01-28 19:13 | DIAGNOSTIC IMAGING REPORT ---
ABDOMEN 2 VIEWS CLINICAL HISTORY: vomiting COMPARISON STUDY: Chest x-ray dated 01/28/2017 FINDINGS: Supine and decubitus views the abdomen reveal moderate fecal retention. There are no transition zones indicate bowel obstruction. There is no free air visualized on the decubitus study. There is a 1 cm right upper quadrant calcification, likely representing a renal calculus. A gallstone could potentially appear similar. IMPRESSION: 1. No evidence of bowel obstruction. No evidence of free intraperitoneal air 2. Fecal retention 3. Upper pole right renal calculus versus gallstone Electronically signed by: Kingsley Myrick M.D. 01/28/2017 7:11 PM Dictated Date/Time: 01/28/2017 7:09 PM
--- NOTE | 2017-01-28 19:27 | DIAGNOSTIC IMAGING REPORT ---
CT SCAN OF THE ABDOMEN AND PELVIS WITHOUT CONTRAST CLINICAL HISTORY: vomiting COMPARISON STUDY: No previous studies for comparison. TECHNIQUE: CT scan of the abdomen and pelvis was performed from the lung bases to the proximal femurs. Images are reviewed in the axial, sagittal, and coronal planes. IV contrast was not administered for this examination. CT DOSE: 326.17 mGy.cm FINDINGS: Lower chest: There are calcified right infrahilar lymph nodes. There are basilar atelectatic changes. There is respiratory motion artifact. There is a small hiatal hernia. There is mild distal esophageal wall thickening. Liver: The unenhanced liver is normal in size, contour, and attenuation. There is no intrahepatic biliary ductal dilatation. Gallbladder: There is a 1 cm right upper quadrant calcification. This unclear whether this is within the gallbladder or adjacent to gallbladder. The study is unfortunately compromised due to motion artifact. Spleen: There are scattered splenic granulomas. Pancreas: Unremarkable. Adrenal glands: Unremarkable. Kidneys: No renal, ureteral, or bladder calculi are visualized. Bowel: There are no transition zones to indicate bowel obstruction. There are no findings to indicate acute appendicitis. There are no findings to indicate acute diverticulitis. Evaluation the bowel is limited due to motion artifact, and the absence of intravenous and oral contrast. There is borderline rectal wall thickening. Peritoneum: There is no intraperitoneal free air or abdominal ascites. Vasculature: The abdominal aorta is normal in course and caliber. Adenopathy: None. Pelvic viscera: The bladder, and pelvic viscera are unremarkable. Skeletal structures: There is an old left pubic ramus fracture. The bones are osteopenic. IMPRESSION: 1. Technically limited study secondary to motion artifact, and the lack of intravenous and oral contrast 2. Equivocal gallstone 3. No renal, ureteral, or bladder calculi identified 4. No evidence of bowel obstruction. No evidence of free air 5. Small hiatal hernia with mild distal esophageal wall thickening 6. Borderline rectal wall thickening 7. No evidence of acute diverticulitis 8. Nonvisualization the appendix, but no evidence of acute appendicitis 9. Fecal retention Electronically signed by: Kingsley Myrick M.D. 01/28/2017 7:25 PM Dictated Date/Time: 01/28/2017 7:19 PM
[2017-01-28] MEDS ORDERED: ONDANSETRON INJ 2 MG/ML 2 ML VIAL IV PRN (20:00)
[2017-01-28] MEDS ORDERED: ACETAMINOPHEN 325 MG TAB PO PRN (20:00)
--- NOTE | 2017-01-28 20:39 | History and Physical ---
History & Physical Date & Time of Service: Jan 28, 2017 at 20:16 Chief Complaint: Vomiting Primary Care Physician: Paulette Perales D.O. History of Present Illness Source: patient, family Patient is an 86 yr female with PMH of dementia, HTN and depression presents from [facility] with history of low grade fever, nausea, vomiting and not feeling herself since one day duration. Patient has dementia and most of the information is obtained from patient's daughter. Her daughter reports that patient had 2 episodes of vomiting yesterday and one today and was unsure if she aspirated. Also reports she is not herself and is acting different today. Also reports having an episode of diarrhea prior to arrival. Patient reports having dry intermittent dry cough and had low grade fever overnight. Denies any history of chest pain, SOB, abdominal pain, dizziness, headache, urinary symptoms, trouble swallowing, recent antibiotic use, travel. She was discharged in september after being treated for left shoulder fracture and had no medication changes. Past Medical/Surgical History Medical Problems: (1) Dementia Status: Chronic (2) Depression Status: Chronic Past Surgical history: lEFT SHOULDER SURGERY, cATARACT SURGERY, tONSILLECTOMY Family History Noncontributory due to advanced age Not contributory Social History Smoking Status: Never Smoker Alcohol Use: socially Drug Use: none Occupational Status: retired Multi-Drug Resistant Organisms History of MDRO: No Allergies Coded Allergies: No Known Allergies (Unverified , 01/28/17) Home Medications Scheduled Acetaminophen (Tylenol Extra Strength), 1,000 MG PO Q8H Aspirin (Aspirin Ec), 81 MG PO DAILY Cholecalciferol (Vitamin D3), 1,000 INTER.UNIT PO DAILY Donepezil HCl (Aricept), 5 MG PO DAILY Lisinopril (Prinivil), 5 MG PO DAILY Multivitamins/Minerals (Mvi With Minerals), 1 TAB PO DAILY Oxybutynin Chloride (Ditropan), 5 MG PO BID Sertraline (Zoloft), 25 MG PO DAILY Review of Systems See HPI for pertinent positives & negatives. A total of 10 systems reviewed and were otherwise negative. Physical Exam Vital Signs Date Time Temp Pulse Resp B/P (MAP) Pulse Ox O2 Delivery O2 Flow Rate FiO2 01/28/17 19:23 85 20 122/64 93 Room Air 01/28/17 17:43 82 16 114/63 92 Room Air 01/28/17 17:32 81 01/28/17 17:22 Room Air 01/28/17 16:29 36.7 90 18 96/63 94 Room Air General Appearance: no apparent distress, + thin Head: normocephalic, atraumatic Eyes: normal inspection, PERRL, EOMI, sclerae normal ENT: normal ENT inspection, hearing grossly normal Neck: supple, trachea midline Respiratory/Chest: chest non-tender, normal breath sounds, no accessory muscle use, + pertinent finding (rales at bases) Cardiovascular: regular rate, rhythm, no murmur, + pertinent finding (Trace edema) Abdomen/GI: normal bowel sounds, non tender, soft Back: normal inspection Extremities/Musculoskelatal: normal inspection, + pertinent finding (Trace edema) 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, no motor/sensory deficits, alert, normal mood/affect Skin: normal color, warm/dry Diagnostics Laboratory Results Results Past 24 Hours Test 01/28/17 17:05 01/28/17 17:14 01/28/17 17:40 Range/Units White Blood Count 11.59 4.8-10.8 K/uL Red Blood Count 4.64 4.2-5.4 M/uL Hemoglobin 13.7 12.0-16.0 g/dL Hematocrit 40.8 37-47 % Mean Corpuscular Volume 87.9 80-100 fL Mean Corpuscular Hemoglobin 29.5 25-34 pg Mean Corpuscular Hemoglobin Concent 33.6 32-36 g/dl Platelet Count 358 130-400 K/uL Mean Platelet Volume 9.7 7.4-10.4 fL Neutrophils (%) (Auto) 72.4 % Lymphocytes (%) (Auto) 16.6 % Monocytes (%) (Auto) 10.0 % Eosinophils (%) (Auto) 0.7 % Basophils (%) (Auto) 0.1 % Neutrophils # (Auto) 8.40 1.4-6.5 K/uL Lymphocytes # (Auto) 1.92 1.2-3.4 K/uL Monocytes # (Auto) 1.16 0.11-0.59 K/uL Eosinophils # (Auto) 0.08 0-0.5 K/uL Basophils # (Auto) 0.01 0-0.2 K/uL RDW Standard Deviation 45.5 36.4-46.3 fL RDW Coefficient of Variation 14.1 11.5-14.5 % Immature Granulocyte % (Auto) 0.2 % Immature Granulocyte # (Auto) 0.02 0.00-0.02 K/uL Erythrocyte Sedimentation Rate 23 0-21 mm/hr Prothrombin Time 10.5 9.0-12.0 SECONDS Prothromb Time International Ratio 1.0 0.9-1.1 Activated Partial Thromboplast Time 29.7 21.0-31.0 SECONDS Partial Thromboplastin Ratio 1.1 Sodium Level 135 136-145 mmol/L Potassium Level 4.1 3.5-5.1 mmol/L Chloride Level 101 98-107 mmol/L Carbon Dioxide Level 30 21-32 mmol/L Anion Gap 4.0 3-11 mmol/L Blood Urea Nitrogen 17 7-18 mg/dl Creatinine 1.30 0.60-1.20 mg/dl Est Creatinine Clear Calc Drug Dose 24.5 ml/min Estimated GFR () 42.4 Estimated GFR (Non- 36.6 BUN/Creatinine Ratio 13.1 10-20 Random Glucose 101 70-99 mg/dl Calcium Level 9.5 8.5-10.1 mg/dl Phosphorus Level 3.0 2.5-4.9 mg/dl Magnesium Level 2.2 1.8-2.4 mg/dl Total Bilirubin 0.8 0.2-1 mg/dl Aspartate Amino Transf (AST/SGOT) 8 15-37 U/L Alanine Aminotransferase (ALT/SGPT) 25 12-78 U/L Alkaline Phosphatase 88 45-117 U/L Total Creatine Kinase 34 26-192 U/L Creatine Kinase MB < 0.5 0.5-3.6 ng/ml Creatine Kinase MB Ratio 0-3.0 Troponin I < 0.015 0-0.045 ng/ml C-Reactive Protein 3.31 0-0.29 mg/dl Pro-B-Type Natriuretic Peptide 583 0-1800 pg/ml Total Protein 6.6 6.4-8.2 gm/dl Albumin 3.4 3.4-5.0 gm/dl Globulin 3.2 2.5-4.0 gm/dl Albumin/Globulin Ratio 1.1 0.9-2 Lipase 131 73-393 U/L Venous Blood pH 7.44 7.36-7.41 Venous Blood Partial Pressure CO2 39 38.0-50.0 mmHg Venous Blood Partial Pressure O2 35 mmHg Venous Blood HCO3 26 mmol/L Venous Blood Oxygen Saturation 71.1 % Venous Blood Base Excess 2.0 mmol/L Bedside Lactic Acid Venous 1.79 0.90-1.70 mmol/L Urine Color DK YELLOW Urine Appearance CLOUDY CLEAR Urine pH 6.5 4.5-7.5 Urine Specific [place] 1.019 1.000-1.030 Urine Protein 2+ NEG Urine Glucose (UA) NEG NEG Urine Ketones TRACE NEG Urine Occult Blood NEG NEG Urine Nitrite POS NEG Urine Bilirubin NEG NEG Urine Urobilinogen NEG NEG Urine Leukocyte Esterase MODERATE NEG Urine WBC (Auto) >30 0-5 /hpf Urine RBC (Auto) 0-4 0-4 /hpf Urine Hyaline Casts (Auto) 10-30 0-5 /lpf Urine Epithelial Cells (Auto) 10-20 0-5 /lpf Urine Bacteria (Auto) 4+ NEG Urine Pathogenic Casts 0-3 WBC CASTS 0 /lpf Microbiology Results 01/28/17 Blood Culture, Received Pending 01/28/17 Blood Culture, Received Pending 01/28/17 Urine Culture, Received Pending Diagnostic Radiology CT ABD: 1. Technically limited study secondary to motion artifact, and the lack of intravenous and oral contrast 2. Equivocal gallstone 3. No renal, ureteral, or bladder calculi identified 4. No evidence of bowel obstruction. No evidence of free air 5. Small hiatal hernia with mild distal esophageal wall thickening 6. Borderline rectal wall thickening 7. No evidence of acute diverticulitis 8. Nonvisualization the appendix, but no evidence of acute appendicitis 9. Fecal retention CXR: 1. Interval development of subtle left basal airspace opacities, atelectatic versus inflammatory. ABD X ray: 1. No evidence of bowel obstruction. No evidence of free intraperitoneal air 2. Fecal retention 3. Upper pole right renal calculus versus gallstone EKG EKG:Normal sinus rhythm Left axis deviation Impression Assessment and Plan UTI: Presents with altered mental status, low grade fever. Denies urinary symptoms UA: Suggestive of UTI Obtain blood/Urine cultures Was started on Levaquin in ED, will continue as patient has possible pneumonia as well Possible Pneumonia: Presents with dry intermittent cough, Nausea, vomiting Unknown if aspirated: patient denies Continue Levaquin Mild elevation in creatinine: Looks dry likely secondary to nausea, vomiting, diarrhea Gently IV fluids Hold lisinopril Monitor renal function Will hold stool softeners till diarrhea resolved Consider to check for stool studies if diarrhea persists Dementia: No acute issues Continue home meds HTN Stable PLan to resume lisinopril when renal function better DVT Px: Heparin SQ Code Status: Full code VTE Prophylaxis VTE Risk Assessment Done? Y/N: Yes Risk Level: Low
[2017-01-28 21:30] VITALS: BP 129/70; PULSE 86; TEMP 36.6; Ht 149.9 cm; Wt 65.0 kg
[2017-01-28] MEDS ORDERED: LEVOFLOXACIN CONSULT ACTIVE PRN (22:00)
[2017-01-28] MEDS: OXYBUTYNIN CHLORIDE 5 MG TAB PO SCH (22:22)
[2017-01-28] MEDS: SODIUM CHLORIDE 0.9% 1000ML 1,000 ML IV SCH (22:22)
[2017-01-28 23:30] VITALS: BP 106/60; PULSE 78; TEMP 36.9; O2SAT 94
[2017-01-29] VITALS: O2SAT 95
[2017-01-29] MEDS: HEPARIN SOD 5000 UNIT/0.5 ML CARP SQ SCH ×3 (06:23→20:26)
[2017-01-29 07:01] LABS: BASO % 0.2 %; BASO ABS # 0.01 K/uL (0-0.2); COMPLETE YES; EOS % 3.2 %; HEMATOCRIT 36.9 % (37-47); IG% 0.2 %; LYMPH % 29.7 %; LYMPH ABS # 1.84 K/uL (1.2-3.4); MEAN CELL VOLUME 88.3 fL (80-100); MEAN CORPUSCULAR HEMOGLOBIN 28.7 pg (25-34); MEAN CORPUSCULAR HGB CONC 32.5 g/dl (32-36); MEAN PLATELET VOLUME 9.6 fL (7.4-10.4); MONO % 10.7 %; PLATELET COUNT 272 K/uL (130-400); RED BLOOD COUNT 4.18 M/uL (4.2-5.4); WHITE BLOOD COUNT 6.19 K/uL (4.8-10.8)
[2017-01-29 07:38] LABS: BUN/CREATININE RATIO 16.1 (10-20); CALCIUM 8.6 mg/dl (8.5-10.1); CREATININE 0.9 mg/dl (0.60-1.20)
[2017-01-29 07:40] VITALS: BP 152/77; PULSE 71; TEMP 36.7; O2SAT 95
[2017-01-29 08:00] VITALS: O2SAT 95
[2017-01-29] MEDS: OXYBUTYNIN CHLORIDE 5 MG TAB PO SCH ×2 (08:34→20:27)
[2017-01-29] MEDS: ASPIRIN 81 MG ECTAB PO SCH (08:35)
[2017-01-29] MEDS: CHOLECALCIFEROL 1000 INTER.UNIT TAB PO SCH (08:35)
[2017-01-29] MEDS: DONEPEZIL HCL 5 MG TAB PO SCH (08:35)
[2017-01-29] MEDS: SERTRALINE HCL 50 MG TAB PO SCH (08:35)
[2017-01-29] MEDS: SODIUM CHLORIDE 0.9% 1000ML 1,000 ML IV SCH (11:10)
--- NOTE | 2017-01-29 12:32 | Clinical Documentation Query ---
QUERY 1 OF [address] 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 Clinical Indicators: 86 yo female presenting with vomiting and diarrhea. Initial Cr 1.30 which has trended down to 0.90. Review of historical Cr range shows 0.80-0.90 over the past year. GFR range of 56.3-65.3. Treatment:1L NSS bolus then continuous IV fluids, IV levaquin, monitor PRP's Risk Factors: age, HTN, pneumonia, UTI QUERY 2 OF 2 In your clinical opinion is this patient being managed for: ( X ) Metabolic encephalopathy in the setting of UTI and pneumonia in a pt with preexisting dementia ( ) Other explanation of clinical findings (Please Explain) ( ) Unable to determine (Please Define) ( ) Need to Discuss ( ) Not Agree The medical record reflects the following clinical findings, treatment, and risk factors. Clinical Indicators: 86 yo female noted by staff at her assisted living facility to be acting differently. Daughter also noted that pt does not seem like herself. WBC 11.59, Cr 1.30, hypotensive 96/63. Treatment: IV fluid bolus then continuous, pending blood and urine cx, IV levaquin, Risk Factors: pneumonia, UTI, known dementia Please clarify and document your clinical opinion in the progress notes and discharge summary. Terms such as "probable", "suspected", "likely", "questionable", "possible", or "still to be ruled out" are acceptable. IF IN AGREEMENT, YOU MUST DOCUMENT ABOVE DIAGNOSTIC STATEMENT IN DAILY PROGRESS NOTES AND DISCHARGE SUMMARY. This document is not part of the patient's record. Thank You, Kym Gaston, RN [phone]
[2017-01-29 15:02] VITALS: BP 139/71; PULSE 75; TEMP 36.3; O2SAT 99
[2017-01-29 16:00] VITALS: O2SAT 95
--- NOTE | 2017-01-29 17:14 | Progress Note ---
Internal Med Progress Note Date of Service: Jan 29, 2017. Provider Documentation: SUBJECTIVE: Patient is alert/awake and is sitting in the chair. Tries to answer my simple questions. Denies any nausea/vomiting. Remains afebrile. Son is at bedside. OBJECTIVE: Vital Signs-as noted below Examination: General Appearance: no apparent distress, + thin Head: normocephalic, atraumatic Eyes: normal inspection, PERRL, EOMI, sclerae normal ENT: normal ENT inspection, hearing grossly normal Neck: Supple, Midline trachea, No JVD. Respiratory/Chest: chest non-tender, normal breath sounds, no accessory muscle use, Decreased BS at lung bases. Cardiovascular: regular rate, rhythm, no murmur, Trace edema. 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 ASSESSMENT & PLAN: UTI:Presents with altered mental status, low grade fever. Denies urinary symptoms UA: Suggestive of UTI. Likely metabolic encephalopathy caused by CLAIRE and infection. -Blood cultures are negative. -Urine culture grew <1000 colonies. -Continue Levaquin which will be cover UTI as well Was started on Levaquin in ED, will continue as patient has possible pneumonia as well Possible Pneumonia:Presents with dry intermittent cough, Nausea, vomiting Unknown if aspirated: patient denies -Continue Levaquin (day # 2) -Incentive Spirometry Acute Kidney Injury: Resolving. Looks dry likely secondary to nausea, vomiting, diarrhea - Continue gentle IV fluids -Holding lisinopril -Monitor renal function -Will hold stool softeners till diarrhea resolved -Check for stool studies if diarrhea persists Dementia:Stable. No acute issues -Continue home medications Hypertension:Stable -Plan to resume lisinopril when renal function better DVT Prophylaxis: Sq Heparin Code Status:Full code Disposition: Discharge once is clinically stable. Vital Signs: Date Time Temp Pulse Resp B/P (MAP) Pulse Ox O2 Delivery O2 Flow Rate FiO2 01/29/17 16:00 95 Room Air 01/29/17 15:02 36.3 75 20 139/71 (93) 99 01/29/17 08:00 95 Room Air 01/29/17 07:40 36.7 71 20 152/77 (102) 95 01/29/17 00:00 95 Room Air 01/28/17 23:30 36.9 78 18 106/60 (75) 94 Room Air 01/28/17 21:30 36.6 86 16 129/70 Room Air 01/28/17 20:26 79 12 144/59 95 Room Air 01/28/17 19:23 85 20 122/64 93 Room Air 01/28/17 17:43 82 16 114/63 92 Room Air 01/28/17 17:32 81 01/28/17 17:22 Room Air Lab Results: Results Past 24 Hours Test 01/28/17 17:40 01/29/17 06:29 Range/Units Urine Color DK YELLOW Urine Appearance CLOUDY CLEAR Urine pH 6.5 4.5-7.5 Urine Specific [place] 1.019 1.000-1.030 Urine Protein 2+ NEG Urine Glucose (UA) NEG NEG Urine Ketones TRACE NEG Urine Occult Blood NEG NEG Urine Nitrite POS NEG Urine Bilirubin NEG NEG Urine Urobilinogen NEG NEG Urine Leukocyte Esterase MODERATE NEG Urine WBC (Auto) >30 0-5 /hpf Urine RBC (Auto) 0-4 0-4 /hpf Urine Hyaline Casts (Auto) 10-30 0-5 /lpf Urine Epithelial Cells (Auto) 10-20 0-5 /lpf Urine Bacteria (Auto) 4+ NEG Urine Pathogenic Casts 0-3 WBC CASTS 0 /lpf White Blood Count 6.19 4.8-10.8 K/uL Red Blood Count 4.18 4.2-5.4 M/uL Hemoglobin 12.0 12.0-16.0 g/dL Hematocrit 36.9 37-47 % Mean Corpuscular Volume 88.3 80-100 fL Mean Corpuscular Hemoglobin 28.7 25-34 pg Mean Corpuscular Hemoglobin Concent 32.5 32-36 g/dl Platelet Count 272 130-400 K/uL Mean Platelet Volume 9.6 7.4-10.4 fL Neutrophils (%) (Auto) 56.0 % Lymphocytes (%) (Auto) 29.7 % Monocytes (%) (Auto) 10.7 % Eosinophils (%) (Auto) 3.2 % Basophils (%) (Auto) 0.2 % Neutrophils # (Auto) 3.47 1.4-6.5 K/uL Lymphocytes # (Auto) 1.84 1.2-3.4 K/uL Monocytes # (Auto) 0.66 0.11-0.59 K/uL Eosinophils # (Auto) 0.20 0-0.5 K/uL Basophils # (Auto) 0.01 0-0.2 K/uL RDW Standard Deviation 45.2 36.4-46.3 fL RDW Coefficient of Variation 14.0 11.5-14.5 % Immature Granulocyte % (Auto) 0.2 % Immature Granulocyte # (Auto) 0.01 0.00-0.02 K/uL Sodium Level 141 136-145 mmol/L Potassium Level 4.0 3.5-5.1 mmol/L Chloride Level 108 98-107 mmol/L Carbon Dioxide Level 27 21-32 mmol/L Anion Gap 6.0 3-11 mmol/L Blood Urea Nitrogen 14 7-18 mg/dl Creatinine 0.90 0.60-1.20 mg/dl Est Creatinine Clear Calc Drug Dose 35.4 ml/min Estimated GFR () 66.2 Estimated GFR (Non- 57.1 BUN/Creatinine Ratio 16.1 10-20 Random Glucose 85 70-99 mg/dl Calcium Level 8.6 8.5-10.1 mg/dl Microbiology Results 01/28/17 Urine Culture - Preliminary, Resulted NO GROWTH - LESS THAN 1,000 COLONIES/...
[2017-01-29 22:59] VITALS: BP 121/69; PULSE 76; TEMP 36.8; O2SAT 93
[2017-01-30] MEDS: SODIUM CHLORIDE 0.9% 1000ML 1,000 ML IV SCH ×2 (00:04→13:04)
[2017-01-30] MEDS: HEPARIN SOD 5000 UNIT/0.5 ML CARP SQ SCH ×3 (06:31→21:22)
[2017-01-30 06:48] LABS: BASO % 0.2 %; BASO ABS # 0.01 K/uL (0-0.2); COMPLETE YES; EOS % 4.6 %; HEMATOCRIT 36.3 % (37-47); IG% 0.2 %; LYMPH ABS # 1.99 K/uL (1.2-3.4); MEAN CORPUSCULAR HEMOGLOBIN 29.2 pg (25-34); MEAN CORPUSCULAR HGB CONC 32.8 g/dl (32-36); MEAN PLATELET VOLUME 10.1 fL (7.4-10.4); MONO % 10.2 %; NEUT % 47.8 %; PLATELET COUNT 261 K/uL (130-400); RED BLOOD COUNT 4.08 M/uL (4.2-5.4); WHITE BLOOD COUNT 5.38 K/uL (4.8-10.8)
[2017-01-30 07:25] LABS: BUN/CREATININE RATIO 14.1 (10-20); CALCIUM 8.7 mg/dl (8.5-10.1); CREATININE 0.8 mg/dl (0.60-1.20); POTASSIUM 3.8 mmol/L (3.5-5.1)
[2017-01-30 07:28] VITALS: BP 169/72; PULSE 65; TEMP 36.4; O2SAT 99
[2017-01-30] MEDS: CHOLECALCIFEROL 1000 INTER.UNIT TAB PO SCH (08:30)
[2017-01-30] MEDS: DONEPEZIL HCL 5 MG TAB PO SCH (08:31)
[2017-01-30] MEDS: ASPIRIN 81 MG ECTAB PO SCH (08:31)
[2017-01-30] MEDS: OXYBUTYNIN CHLORIDE 5 MG TAB PO SCH ×2 (08:31→21:20)
[2017-01-30] MEDS: SERTRALINE HCL 50 MG TAB PO SCH (08:31)
[2017-01-30 11:37] VITALS: BP 127/75; PULSE 75
[2017-01-30] MEDS: LISINOPRIL 5 MG TAB PO SCH (11:38)
--- NOTE | 2017-01-30 11:44 | Progress Note ---
Internal Med Progress Note Date of Service: Jan 30, 2017. Provider Documentation: SUBJECTIVE: Patient is alert/awake and is sitting in the chair. Tries to answer my simple questions. Denies any nausea/vomiting. Remains afebrile. No new change or complaint. OBJECTIVE: Vital Signs-as noted below Examination: General Appearance: no apparent distress, + thin Head: normocephalic, atraumatic Eyes: normal inspection, PERRL, EOMI, sclerae normal ENT: normal ENT inspection, hearing grossly normal Neck: Supple, Midline trachea, No JVD. Respiratory/Chest: chest non-tender, normal breath sounds, no accessory muscle use, Decreased BS at lung bases. Cardiovascular: regular rate, rhythm, no murmur, Trace edema. 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 ASSESSMENT & PLAN: UTI:Presents with altered mental status, low grade fever. Denies urinary symptoms UA: Suggestive of UTI. Likely metabolic encephalopathy caused by CLAIRE and infection. -Blood cultures are negative. -Urine culture grew <1000 colonies. -Continue Levaquin (day # 3) which will be cover UTI as well Was started on Levaquin in ED, will continue as patient has possible pneumonia as well Possible Pneumonia:Presents with dry intermittent cough, Nausea, vomiting Unknown if aspirated: patient denies -Continue Levaquin (day # 3) -Incentive Spirometry -Repeat Chest X-ray today Acute Kidney Injury: Resolving. Looks dry likely secondary to nausea, vomiting, diarrhea - Continue gentle IV fluids -Started lisinopril -Monitor renal function -Will hold stool softeners till diarrhea resolved -Check for stool studies if diarrhea persists Metabolic Encephalopathy: Likely due to above in setting of underlying dementia. Resolved now and is at her baseline. Dementia:Stable. No acute issues -Continue home medications Hypertension:Stable -Started Lisinopril 5 mg daily under parameters DVT Prophylaxis: Sq Heparin Code Status:Full code Disposition: Discharge home on 01/31/2017. Vital Signs: Date Time Temp Pulse Resp B/P (MAP) Pulse Ox O2 Delivery O2 Flow Rate FiO2 01/30/17 11:37 75 127/75 (92) 01/30/17 08:00 Room Air 01/30/17 07:28 36.4 65 20 169/72 (104) 99 01/30/17 00:00 Room Air 01/29/17 22:59 36.8 76 16 121/69 (86) 93 Room Air 01/29/17 16:00 95 Room Air 01/29/17 15:02 36.3 75 20 139/71 (93) 99 Lab Results: Results Past 24 Hours Test 01/30/17 05:53 01/30/17 10:37 Range/Units White Blood Count 5.38 4.8-10.8 K/uL Red Blood Count 4.08 4.2-5.4 M/uL Hemoglobin 11.9 12.0-16.0 g/dL Hematocrit 36.3 37-47 % Mean Corpuscular Volume 89.0 80-100 fL Mean Corpuscular Hemoglobin 29.2 25-34 pg Mean Corpuscular Hemoglobin Concent 32.8 32-36 g/dl Platelet Count 261 130-400 K/uL Mean Platelet Volume 10.1 7.4-10.4 fL Neutrophils (%) (Auto) 47.8 % Lymphocytes (%) (Auto) 37.0 % Monocytes (%) (Auto) 10.2 % Eosinophils (%) (Auto) 4.6 % Basophils (%) (Auto) 0.2 % Neutrophils # (Auto) 2.57 1.4-6.5 K/uL Lymphocytes # (Auto) 1.99 1.2-3.4 K/uL Monocytes # (Auto) 0.55 0.11-0.59 K/uL Eosinophils # (Auto) 0.25 0-0.5 K/uL Basophils # (Auto) 0.01 0-0.2 K/uL RDW Standard Deviation 45.6 36.4-46.3 fL RDW Coefficient of Variation 13.9 11.5-14.5 % Immature Granulocyte % (Auto) 0.2 % Immature Granulocyte # (Auto) 0.01 0.00-0.02 K/uL Sodium Level 141 136-145 mmol/L Potassium Level 3.8 3.5-5.1 mmol/L Chloride Level 110 98-107 mmol/L Carbon Dioxide Level 24 21-32 mmol/L Anion Gap 7.0 3-11 mmol/L Blood Urea Nitrogen 11 7-18 mg/dl Creatinine 0.80 0.60-1.20 mg/dl Est Creatinine Clear Calc Drug Dose 39.9 ml/min Estimated GFR () 76.3 Estimated GFR (Non- 65.8 BUN/Creatinine Ratio 14.1 10-20 Random Glucose 81 70-99 mg/dl Calcium Level 8.7 8.5-10.1 mg/dl Lactic Acid Level 1.7 0.4-2.0 mmol/L
--- NOTE | 2017-01-30 13:52 | DIAGNOSTIC IMAGING REPORT ---
CHEST 2 VIEWS ROUTINE CLINICAL HISTORY: Follow up Pneumonia COMPARISON STUDY: 01/28/2017 FINDINGS: The cardiac and mediastinal contours remain stable. There is aortic tortuosity. There are extensive mediastinal and hilar calcified lymph nodes. There is mild basilar interstitial thickening. There is been interval resolution of the focal left basilar airspace opacity. This was therefore likely atelectatic.[ IMPRESSION: Mild basilar atelectasis. No acute findings. No evidence of focal pulmonary consolidation Electronically signed by: Kingsley Myrick M.D. 01/30/2017 1:51 PM Dictated Date/Time: 01/30/2017 1:50 PM
[2017-01-30 16:11] VITALS: BP 152/76; PULSE 65; TEMP 36.4; O2SAT 96
[2017-01-30] MEDS ORDERED: LEVOFLOXACIN / D5W 750 MG in PREMIXED IN D5W 150 ML IV SCH (18:00)
[2017-01-30 23:01] VITALS: BP 131/64; PULSE 84; TEMP 36.7; O2SAT 90
[2017-01-31] MEDS: HEPARIN SOD 5000 UNIT/0.5 ML CARP SQ SCH ×2 (06:24→14:00)
[2017-01-31 06:33] LABS: BUN/CREATININE RATIO 12.1 (10-20); CALCIUM 8.6 mg/dl (8.5-10.1); CREATININE 0.88 mg/dl (0.60-1.20); POTASSIUM 3.9 mmol/L (3.5-5.1)
[2017-01-31] MEDS: LISINOPRIL 5 MG TAB PO SCH (07:44)
[2017-01-31 07:46] VITALS: BP 146/79; PULSE 75; TEMP 36.7; O2SAT 96
[2017-01-31] MEDS: SERTRALINE HCL 50 MG TAB PO SCH (07:47)
[2017-01-31] MEDS: CHOLECALCIFEROL 1000 INTER.UNIT TAB PO SCH (07:47)
[2017-01-31] MEDS: OXYBUTYNIN CHLORIDE 5 MG TAB PO SCH (07:47)
[2017-01-31] MEDS: DONEPEZIL HCL 5 MG TAB PO SCH (07:48)
[2017-01-31] MEDS: ASPIRIN 81 MG ECTAB PO SCH (07:48)
[2017-01-31] MEDS: SODIUM CHLORIDE 0.9% 1000ML 1,000 ML IV SCH (11:04)
--- NOTE | 2017-01-31 11:25 | Progress Note ---
Internal Med Progress Note Date of Service: Jan 31, 2017. Provider Documentation: SUBJECTIVE: Patient is alert/awake and is sitting in the chair. Tries to answer my simple questions. Denies any nausea/vomiting. Remains afebrile. Tolerating oral intake.No new change or complaint. OBJECTIVE: Vital Signs-as noted below Examination: General Appearance: no apparent distress, + thin Head: normocephalic, atraumatic Eyes: normal inspection, PERRL, EOMI, sclerae normal ENT: normal ENT inspection, hearing grossly normal Neck: Supple, Midline trachea, No JVD. Respiratory/Chest: chest non-tender, normal breath sounds, no accessory muscle use, Decreased BS at lung bases. Cardiovascular: regular rate, rhythm, no murmur, Trace edema. 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 ASSESSMENT & PLAN: Chest X-Ray (01/30/2017) IMPRESSION: Mild basilar atelectasis. No acute findings. No evidence of focal pulmonary consolidation UTI:Presents with altered mental status, low grade fever. Denies urinary symptoms UA: Suggestive of UTI. Likely metabolic encephalopathy caused by CLAIRE and infection. -Blood cultures are negative. -Urine culture grew <1000 colonies. -Continue Levaquin (day # 4) which will be cover UTI as well Was started on Levaquin in ED, will continue as patient has possible pneumonia as well Possible Pneumonia:Presents with dry intermittent cough, Nausea, vomiting Unknown if aspirated: patient denies -Continue Levaquin (day # 4) & will continue for 3 more days after discharge. -Incentive Spirometry -Repeat Chest X-ray from 01/30/2017 shows no pneumonia. Acute Kidney Injury: Resolving. Looks dry likely secondary to nausea, vomiting, diarrhea - Continue gentle IV fluids -Started lisinopril -Monitor renal function -Will hold stool softeners till diarrhea resolved -Check for stool studies if diarrhea persists Metabolic Encephalopathy: Likely due to above in setting of underlying dementia. Resolved now and is at her baseline. Dementia:Stable. No acute issues -Continue home medications Hypertension:Stable -Started Lisinopril 5 mg daily under parameters DVT Prophylaxis: Sq Heparin Code Status:Full code Disposition: Discharge home later today. Follow up with PCP within 3-5 days after discharge Vital Signs: Date Time Temp Pulse Resp B/P (MAP) Pulse Ox O2 Delivery O2 Flow Rate FiO2 01/31/17 08:00 Room Air 01/31/17 07:46 36.7 75 16 146/79 (101) 96 Room Air 01/31/17 00:00 Room Air 01/30/17 23:01 36.7 84 18 131/64 (86) 90 Room Air 01/30/17 19:45 Room Air 01/30/17 16:11 36.4 65 16 152/76 (101) 96 Room Air 01/30/17 16:00 Room Air 01/30/17 11:37 75 127/75 (92) Lab Results: Results Past 24 Hours Test 01/31/17 05:12 Range/Units Sodium Level 141 136-145 mmol/L Potassium Level 3.9 3.5-5.1 mmol/L Chloride Level 110 98-107 mmol/L Carbon Dioxide Level 26 21-32 mmol/L Anion Gap 5.0 3-11 mmol/L Blood Urea Nitrogen 11 7-18 mg/dl Creatinine 0.88 0.60-1.20 mg/dl Est Creatinine Clear Calc Drug Dose 36.2 ml/min Estimated GFR () 68.0 Estimated GFR (Non- 58.7 BUN/Creatinine Ratio 12.1 10-20 Random Glucose 83 70-99 mg/dl Calcium Level 8.6 8.5-10.1 mg/dl
[2017-01-31] MEDS ORDERED: LVQ500 PO (11:27)
--- NOTE | 2017-01-31 11:29 | Discharge Instructions ---
Discharge Instructions Date of Service Jan 31, 2017. Admission Reason for Admission: Nausea And Vomiting Discharge Discharge Diagnosis / Problem: Likely UTI Discharge Goals Goal(s): Decrease discomfort, Improve function, Increase independence, Improve disease control, Learn about illness, Diagnostic testing, Therapeutic intervention, Prevent Disease Progression Activity Recommendations Activity Limitations: resume your previous activity (As Tolerated. Activity with assistance following fall precautions.) Exercise/Sports Limitations: gradually increase as tolerated Shower/Bathe: no limitations (With assistance) Driving or Machine Use: No Driving. . Instructions / Follow-Up Instructions / Follow-Up 1. Take all the medications as directed. 2. Drink adequate amounts of fluids. 3. Take Aricept at bedtime as it can make you dizzy 4. Follow up with your PCP in 3-5 days after discharge. Current Hospital Diet Patient's current hospital diet: AHA Diet (Heart Healthy) Discharge Diet Recommended Diet: AHA Diet (Heart Healthy) Pending Studies Studies pending at discharge: no Medical Emergencies . Who to Call and When: Medical Emergencies: If at any time you feel your situation is an emergency, please call 911 immediately. . Non-Emergent Contact Non-Emergency issues call your: Primary Care Provider . . "Provider Documentation" section prepared by Lebron Carter. . VTE Core Measure Inpt VTE Proph given/why not?: Unfractionated heparin SQ
--- NOTE | 2017-01-31 11:33 | Discharge Summary ---
Discharge Summary Date of Service Jan 31, 2017. Discharge Summary Admission Date: Jan 28, 2017 at 20:01 Discharge Date: Jan 31, 2017 Discharge Disposition: Personal care Principal Diagnosis: Likely UTI Possible Pneumonia Metabolic Encephalopathy (Resolved) Acute Kidney Injury (Resolved) Secondary Diagnoses/Problems: History HTN Dementia Procedures: NONE Vaccinations: NONE Consultations: NONE Pending Studies/Follow-Up: NONE Medication Reconciliation New Medications: Levofloxacin (Levaquin) 250 Mg Tab 250 MG PO DAILY for 3 Days, #3 TAB Continued Medications: Acetaminophen (Tylenol Extra Strength) 500 Mg Tab 1000 MG PO Q8H for 30 Days, #90 TAB Aspirin (Aspirin Ec) 81 Mg Tab 81 MG PO DAILY Cholecalciferol (Vitamin D3) 1,000 Inter.unit Tab 1000 INTER.UNIT PO DAILY for 10 Days, #10 TAB Donepezil HCl (Aricept) 5 Mg Tab 5 MG PO DAILY for 10 Days, #10 TAKE THIS MEDICATION ONCE DAILY WITH LARGEST MEAL OF THE DAY Lisinopril (Prinivil) 5 Mg Tab 5 MG PO DAILY, TAB Multivitamins/Minerals (Mvi With Minerals) Tab 1 TAB PO DAILY for 10 Days, #10 TAB Oxybutynin Chloride (Ditropan) 5 Mg Tab 5 MG PO BID for 10 Days, #20 TAB Sertraline (Zoloft) 25 Mg Tab 25 MG PO DAILY for 10 Days, #10 TAB Admission Information HPI (per Admitting provider): Patient is an 86 yr female with PMH of dementia, HTN and depression presents from [facility] with history of low grade fever, nausea, vomiting and not feeling herself since one day duration. Patient has dementia and most of the information is obtained from patient's daughter. Her daughter reports that patient had 2 episodes of vomiting yesterday and one today and was unsure if she aspirated. Also reports she is not herself and is acting different today. Also reports having an episode of diarrhea prior to arrival. Patient reports having dry intermittent dry cough and had low grade fever overnight. Denies any history of chest pain, SOB, abdominal pain, dizziness, headache, urinary symptoms, trouble swallowing, recent antibiotic use, travel. She was discharged in september after being treated for left shoulder fracture and had no medication changes. Physical Exam (per Admitting): General Appearance: no apparent distress, + thin Head: normocephalic, atraumatic Eyes: normal inspection, PERRL, EOMI, sclerae normal ENT: normal ENT inspection, hearing grossly normal Neck: supple, trachea midline Respiratory/Chest: chest non-tender, normal breath sounds, no accessory muscle use, + pertinent finding (rales at bases) Cardiovascular: regular rate, rhythm, no murmur, + pertinent finding (Trace edema) Abdomen/GI: normal bowel sounds, non tender, soft Back: normal inspection Extremities/Musculoskelatal: normal inspection, + pertinent finding (Trace edema) 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 No acute findings. No evidence of focal pulmonary consolidation UTI:Presents with altered mental status, low grade fever. Denies urinary symptoms UA: Suggestive of UTI. Likely metabolic encephalopathy caused by CLAIRE and infection. -Blood cultures are negative. -Urine culture grew <1000 colonies. -Continue Levaquin (day # 4) which will be cover UTI as well Was started on Levaquin in ED, will continue as patient has possible pneumonia as well Possible Pneumonia:Presents with dry intermittent cough, Nausea, vomiting Unknown if aspirated: patient denies -Continue Levaquin (day # 4) & will continue for 3 more days after discharge. -Incentive Spirometry -Repeat Chest X-ray from 01/30/2017 shows no pneumonia. Acute Kidney Injury: Resolving. Looks dry likely secondary to nausea, vomiting, diarrhea - Continue gentle IV fluids -Started lisinopril -Monitor renal function -Will hold stool softeners till diarrhea resolved -Check for stool studies if diarrhea persists Metabolic Encephalopathy: Likely due to above in setting of underlying dementia. Resolved now and is at her baseline. Dementia:Stable. No acute issues -Continue home medications Hypertension:Stable -Started Lisinopril 5 mg daily under parameters DVT Prophylaxis: Sq Heparin Code Status:Full code Disposition: Discharge home later today. Follow up with PCP within 3-5 days after discharge Total time spent on discharge = 38 minutes. This includes examination of the patient, discharge planning, medication reconciliation, and communication with other providers. Discharge Instructions Activity Recommendations Activity Limitations: resume your previous activity (As Tolerated. Activity with assistance following fall precautions.) Exercise/Sports Limitations: gradually increase as tolerated Shower/Bathe: no limitations (With assistance) Driving or Machine Use: No Driving. . Instructions / Follow-Up Instructions / Follow-Up 1. Take all the medications as directed. 2. Drink adequate amounts of fluids. 3. Take Aricept at bedtime as it can make you dizzy 4. Follow up with your PCP in 3-5 days after discharge. Current Hospital Diet Patient's current hospital diet: AHA Diet (Heart Healthy) Discharge Diet Recommended Diet: AHA Diet (Heart Healthy) Additional Copies To Paulette Perales D.O.
[2017-01-31 11:37] VITALS: BP 146/79; PULSE 75; TEMP 36.7; O2SAT 96
[2017-01-31] MEDS ORDERED: LEVO-17 PO (14:29)
[2017-02-01] MEDS ORDERED: LEVOFLOXACIN 500 MG TAB PO SCH (11:00)
[2017-02-01] MEDS ORDERED: DONEPEZIL HCL 5 MG TAB PO SCH (21:00)
== END 2017-01-31 15:45 | disposition home or self-care (01) | DRG 682 ==
LOC: C.EDB 16:28 → C.MS2W 20:01 → ENRESERV 20:37
PROVIDERS: ADMIT Internal Medicine; ATTEND Emergency Medicine
DX: N17.9 Acute kidney failure, unspecified (principal); J18.9 Pneumonia, unspecified organism; G93.41 Metabolic encephalopathy; N39.0 Urinary tract infection, site not specified; I10 Essential (primary) hypertension; R11.2 Nausea with vomiting, unspecified; R19.7 Diarrhea, unspecified; F03.90 Unspecified dementia, unspecified severity, without behavioral disturbance, psychotic disturbance, mood disturbance, and anxiety; F32.9 Major depressive disorder, single episode, unspecified; Z79.82 Long term (current) use of aspirin; Z79.899 Other long term (current) drug therapy

== ENCOUNTER 2017-02-07 10:11 | Emergency (ER) | payer OTHER ==
[~2017-02-07] VITALS: Ht 147.3 cm; Wt 64.0 kg
[~2017-02-07 10:11] MED LIST changes: -ASPEC325 PO; +ASPI81TA28 PO; -CLC100 PO; -DLCS PR; +LISI-729 PO; -METH PO; -MOMLX PO; -NYSTCRE11 TOP
[2017-02-07 10:17] VITALS: TEMP 36.8; Ht 147.3 cm; Wt 64.0 kg
[2017-02-07] MEDS ORDERED: SODIUM CHLORIDE 0.9% 1000ML 1,000 ML IV STA (10:35)
[2017-02-07] MEDS ORDERED: SODIUM CHLORIDE 0.9% 500ML 500 ML IV STA (10:49)
[2017-02-07] MEDS ORDERED: ONDANSETRON INJ 2 MG/ML 2 ML VIAL IV STA (10:49)
[2017-02-07 11:06] LABS: BASO % 0.1 %; BASO ABS # 0.01 K/uL (0-0.2); COMPLETE YES; EOS % 0.1 %; HEMATOCRIT 40.8 % (37-47); IG% 0.3 %; LYMPH % 15.1 %; LYMPH ABS # 1.59 K/uL (1.2-3.4); MEAN CELL VOLUME 88.1 fL (80-100); MEAN CORPUSCULAR HEMOGLOBIN 28.7 pg (25-34); MEAN CORPUSCULAR HGB CONC 32.6 g/dl (32-36); MEAN PLATELET VOLUME 9.8 fL (7.4-10.4); MONO % 6.8 %; NEUT % 77.6 %; PLATELET COUNT 388 K/uL (130-400); RED BLOOD COUNT 4.63 M/uL (4.2-5.4); WHITE BLOOD COUNT 10.55 K/uL (4.8-10.8)
--- NOTE | 2017-02-07 11:17 | DIAGNOSTIC IMAGING REPORT ---
CHEST ONE VIEW PORTABLE CLINICAL HISTORY: EVALUATE WEAKNESS dyspnea COMPARISON STUDY: 01/30/2017 FINDINGS: The bones soft tissues and hemidiaphragms are normal. The cardiomediastinal silhouette is normal. The lungs are clear. The pulmonary vasculature is normal. IMPRESSION: Negative chest. The above report was generated using voice recognition software. It may contain grammatical, syntax or spelling errors. Electronically signed by: Shaji Rodriguez M.D. 02/07/2017 11:15 AM Dictated Date/Time: 02/07/2017 11:15 AM
[2017-02-07 11:18] LABS: PROTHROMBIN TIME (PATIENT) 10.6 SECONDS (9.0-12.0)
[2017-02-07 11:25] LABS: ALT/SGPT 24 U/L (12-78); AST/SGOT 12 U/L (15-37); BLOOD UREA NITROGEN 12 mg/dl (7-18); BUN/CREATININE RATIO 12.9 (10-20); CALCIUM 9.2 mg/dl (8.5-10.1); CARBON DIOXIDE 30 mmol/L (21-32); CHLORIDE 101 mmol/L (98-107); CREATININE 0.93 mg/dl (0.60-1.20); GLUCOSE 110 mg/dl (70-99); MAGNESIUM 2.1 mg/dl (1.8-2.4); POTASSIUM 4.4 mmol/L (3.5-5.1); SODIUM 138 mmol/L (136-145)
[2017-02-07 11:34] LABS: ALKALINE PHOSPHATASE 84 U/L (45-117); CKMB/CK RATIO 2.7 (0-3.0); THYROID STIMULATING HORMONE 0.803 uIu/ml (0.300-4.500)
[2017-02-07 11:42] VITALS: O2SAT 96
[2017-02-07 11:52] LABS: URINE APPEARANCE CLEAR (CLEAR); URINE BILIRUBIN NEG (NEG); URINE COLOR YELLOW; URINE NITRITE NEG (NEG); URINE SPECIFIC GRAVITY 1.012 (1.000-1.030); UROBILINOGEN NEG (NEG)
[2017-02-07 12:06] LABS: MANUAL MICROSCOPIC REQUIRED? NO; REVIEW REQ? NO
--- NOTE | 2017-02-07 13:13 | DIAGNOSTIC IMAGING REPORT ---
ABD/PELVIS NO IV OR ORAL CONT CT DOSE: 458.48 mGy.cm HISTORY: Nausea vomiting TECHNIQUE: Multiaxial CT images of the abdomen and pelvis were performed without contrast. COMPARISON STUDY: 01/28/2017 FINDINGS: Mild bibasilar atelectasis. Small hiatal hernia. Calcified granulomas within the liver as well as spleen. Gallstone within the gallbladder lumen. Kidneys negative for calcification or hydronephrosis. The bowel pattern is considered nonobstructive. Uterus demonstrates a exophytic fibroid measuring 4.5 cm. 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 There is moderate fecal impaction. Bladder is midline. IMPRESSION: 1. Fibroid uterus. 2. Moderate fecal impaction. 3. Nonobstructive bowel pattern. 4. Gallstone. The above report was generated using voice recognition software. It may contain grammatical, syntax or spelling errors. Electronically signed by: Shaji Rodriguez M.D. 02/07/2017 1:11 PM Dictated Date/Time: 02/07/2017 1:05 PM
[2017-02-07] MEDS ORDERED: ONDANSETRON HOME PACK 4MG OD TAB PO ONE (15:00)
--- NOTE | 2017-02-07 15:30 | EMERGENCY ROOM VISIT NOTE ---
History Report prepared by Karrie: Aisha De La Rosa Under the Supervision of: Dr. Alexander Dawson M.D. First contact with patient: 10:35 Chief Complaint: VOMITING Stated Complaint: PNEUMONIA Nursing Triage Summary: pt was recently dc from here with penumonia and now returns with c/o n/v and fever there per staff no c/o pain History of Present Illness The patient is an 86 year old female who presents to the Emergency Room with complaints of persistent nausea and vomiting that started a couple days ago. The patient's son states that the patient is also experiencing a low-grade fever. The patient has been eating, but she experiences vomiting afterward. Pt denies LOC, headache, chills, diaphoresis, visual changes, cough, neck pain, chest pain, breathing difficulties, abdominal pain, back pain, diarrhea, melena , hematochezia, urinary symptoms, numbness, weakness, lymphadenopathy, rash, or other complaints. The patient was admitted to the hospital on January 28 for pneumonia and a UTI. She was on Levaquin while she was in the hospital and for 3 days after being discharged. The patient was in the hospital for 3 days and she was discharged from the hospital 1 week ago. The patient resides at [facility]. The patient's son does not think that the patient was evaluated by any of the doctors at [facility] within the last few days. Source of History: patient, family (son) Onset: a couple days ago Position: abdomen Quality: other (nausea and vomiting) Timing: other (persistent) Associated Symptoms: + fevers (low-grade) Review of Systems See HPI for pertinent positives and negatives. A total of ten systems were reviewed and were otherwise negative. Past Medical & Surgical Medical Problems: (1) Dementia (2) Depression Surgical Problems: (1) History of cataract surgery (2) History of tonsillectomy Family History Noncontributory due to advanced age Social History Smoking Status: Never Smoker Alcohol Use: none Drug Use: none Housing Status: retirement Occupation Status: retired Current/Historical Medications Scheduled Acetaminophen (Tylenol Extra Strength), 1,000 MG PO Q8H Aspirin (Aspirin Ec), 81 MG PO DAILY Cholecalciferol (Vitamin D3), 1,000 INTER.UNIT PO DAILY Donepezil HCl (Aricept), 5 MG PO DAILY Lisinopril (Prinivil), 5 MG PO DAILY Multivitamins/Minerals (Mvi With Minerals), 1 TAB PO DAILY Oxybutynin Chloride (Ditropan), 5 MG PO BID Sertraline (Zoloft), 25 MG PO DAILY Allergies Coded Allergies: No Known Allergies (Unverified , 01/28/17) Physical Exam Vital Signs Date Time Temp Pulse Resp B/P (MAP) Pulse Ox O2 Delivery O2 Flow Rate FiO2 02/07/17 14:57 77 16 130/59 95 Room Air 02/07/17 14:07 79 02/07/17 12:59 77 16 157/84 97 Room Air 02/07/17 11:42 96 Room Air 02/07/17 11:41 78 16 147/78 96 Room Air 02/07/17 11:00 85 02/07/17 10:17 36.8 91 18 131/70 94 Physical Exam GENERAL: Awake, alert, well-appearing, in no distress HENT: Normocephalic, atraumatic. Oropharynx unremarkable. EYES: Normal conjunctiva. Sclera non-icteric. NECK: Supple. No nuchal rigidity. FROM. No JVD. RESPIRATORY: Crackles bilaterally. CARDIAC: Regular rate, normal rhythm. Extremities warm and well perfused. Pulses equal. ABDOMEN: Soft, non-distended. No tenderness to palpation. No rebound or guarding. No masses. RECTAL: Deferred. MUSCULOSKELETAL: Chest examination reveals no tenderness. The back is symmetrical on inspection without obvious abnormality. There is no CVA tenderness to palpation. No joint edema. LOWER EXTREMITIES: Calves are equal size bilaterally and non-tender. 1+ edema. No discoloration. NEURO: Mildly demented sensorium. No sensory or motor deficits noted. SKIN: No rash or jaundice noted. Medical Decision & Procedures ER Provider Diagnostic Interpretation: Radiology results as stated below per my review and radiologist interpretation: CHEST ONE VIEW PORTABLE FINDINGS: The bones soft tissues and hemidiaphragms are normal. The cardiomediastinal silhouette is normal. The lungs are clear. The pulmonary vasculature is normal. IMPRESSION: Negative chest. The above report was generated using voice recognition software. It may contain grammatical, syntax or spelling errors. Electronically signed by: Shaji Rodriguez M.D. 02/07/2017 11:15 AM Dictated Date/Time: 02/07/2017 11:15 AM ABD/PELVIS NO IV OR ORAL CONT FINDINGS: Mild bibasilar atelectasis. Small hiatal hernia. Calcified granulomas within the liver as well as spleen. Gallstone within the gallbladder lumen. Kidneys negative for calcification or hydronephrosis. The bowel pattern is considered nonobstructive. Uterus demonstrates a exophytic fibroid measuring 4.5 cm. 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 There is moderate fecal impaction. Bladder is midline. IMPRESSION: 1. Fibroid uterus. 2. Moderate fecal impaction. 3. Nonobstructive bowel pattern. 4. Gallstone. The above report was generated using voice recognition software. It may contain grammatical, syntax or spelling errors. Electronically signed by: Shaji Rodriguez M.D. 02/07/2017 1:11 PM Dictated Date/Time: 02/07/2017 1:05 PM Laboratory Results 02/07/17 10:28 Red Blood Count 4.63, Mean Corpuscular Volume 88.1, Mean Corpuscular Hemoglobin 28.7, Mean Corpuscular Hemoglobin Concent 32.6, Mean Platelet Volume 9.8, Neutrophils (%) (Auto) 77.6, Lymphocytes (%) (Auto) 15.1, Monocytes (%) (Auto) 6.8, Eosinophils (%) (Auto) 0.1, Basophils (%) (Auto) 0.1, Neutrophils # (Auto) 8.19, Lymphocytes # (Auto) 1.59, Monocytes # (Auto) 0.72, Eosinophils # (Auto) 0.01, Basophils # (Auto) 0.01 02/07/17 10:28 Test 02/07/17 10:28 02/07/17 11:30 02/07/17 14:11 White Blood Count 10.55 K/uL (4.8-10.8) Red Blood Count 4.63 M/uL (4.2-5.4) Hemoglobin 13.3 g/dL (12.0-16.0) Hematocrit 40.8 % (37-47) Mean Corpuscular Volume 88.1 fL (80-100) Mean Corpuscular Hemoglobin 28.7 pg (25-34) Mean Corpuscular Hemoglobin Concent 32.6 g/dl (32-36) Platelet Count 388 K/uL (130-400) Mean Platelet Volume 9.8 fL (7.4-10.4) Neutrophils (%) (Auto) 77.6 % Lymphocytes (%) (Auto) 15.1 % Monocytes (%) (Auto) 6.8 % Eosinophils (%) (Auto) 0.1 % Basophils (%) (Auto) 0.1 % Neutrophils # (Auto) 8.19 K/uL (1.4-6.5) Lymphocytes # (Auto) 1.59 K/uL (1.2-3.4) Monocytes # (Auto) 0.72 K/uL (0.11-0.59) Eosinophils # (Auto) 0.01 K/uL (0-0.5) Basophils # (Auto) 0.01 K/uL (0-0.2) RDW Standard Deviation 46.5 fL (36.4-46.3) RDW Coefficient of Variation 14.3 % (11.5-14.5) Immature Granulocyte % (Auto) 0.3 % Immature Granulocyte # (Auto) 0.03 K/uL (0.00-0.02) Prothrombin Time 10.6 SECONDS (9.0-12.0) Prothromb Time International Ratio 1.0 (0.9-1.1) Activated Partial Thromboplast Time 26.9 SECONDS (21.0-31.0) Partial Thromboplastin Ratio 1.0 Anion Gap 7.0 mmol/L (3-11) Est Creatinine Clear Calc Drug Dose 33.1 ml/min Estimated GFR () 63.6 Estimated GFR (Non- 54.9 BUN/Creatinine Ratio 12.9 (10-20) Calcium Level 9.2 mg/dl (8.5-10.1) Magnesium Level 2.1 mg/dl (1.8-2.4) Total Bilirubin 0.7 mg/dl (0.2-1) Direct Bilirubin 0.1 mg/dl (0-0.2) Aspartate Amino Transf (AST/SGOT) 12 U/L (15-37) Alanine Aminotransferase (ALT/SGPT) 24 U/L (12-78) Alkaline Phosphatase 84 U/L (45-117) Total Creatine Kinase 33 U/L (26-192) Creatine Kinase MB 0.9 ng/ml (0.5-3.6) Creatine Kinase MB Ratio 2.7 (0-3.0) Troponin I < 0.015 ng/ml (0-0.045) Total Protein 6.4 gm/dl (6.4-8.2) Albumin 3.3 gm/dl (3.4-5.0) Lipase 107 U/L (73-393) Thyroid Stimulating Hormone (TSH) 0.803 uIu/ml (0.300-4.500) Urine Color YELLOW Urine Appearance CLEAR (CLEAR) Urine pH 8.0 (4.5-7.5) Urine Specific Roscoe 1.012 (1.000-1.030) Urine Protein NEG (NEG) Urine Glucose (UA) NEG (NEG) Urine Ketones NEG (NEG) Urine Occult Blood NEG (NEG) Urine Nitrite NEG (NEG) Urine Bilirubin NEG (NEG) Urine Urobilinogen NEG (NEG) Urine Leukocyte Esterase NEG (NEG) Bedside Lactic Acid Venous 1.11 mmol/L (0.90-1.70) Laboratory results reviewed by me Medications Administered Medications (Trade) Dose Ordered Sig/Hudson Route Start Time Stop Time Status Last Admin Dose Admin Sodium Chloride 1,000 ml @ 125 mls/hr Q8H STAT IV 02/07/17 10:35 02/07/17 18:34 02/07/17 11:38 125 MLS/HR Ondansetron HCl (Zofran Inj) 4 mg NOW STAT IV 02/07/17 10:49 02/07/17 10:51 DC 02/07/17 11:05 4 MG Sodium Chloride 500 ml @ 999 mls/hr Q31M STAT IV 02/07/17 10:49 02/07/17 11:19 DC 02/07/17 11:03 999 MLS/HR ECG Indication: nausea, vomiting Rate (beats per minute): 84 Rhythm: normal sinus Findings: Q waves (Septal), no acute ischemic change, left axis deviation, no ectopy, other (LVH) ED Course 1035: Ordered Sodium Chloride 1000 ml @ 125 mls/hr IV 1047: The patient was evaluated in room B7. A complete history and physical exam was performed. 1049: Ordered Sodium Chloride 500 ml @ 999 mls/hr IV, Zofran Inj 4 mg IV 1227: I reassessed and updated the patient. She is in agreement with getting a CT scan of her abdomen and pelvis. 1404: I reassessed the patient. She does not feel that she has been experiencing any issues with constipation. Nursing staff report that the patient had a bowel movement while she was in the ED and it was soft but not diarrhea. We are going to repeat a lactate. 1414: I discussed the patient's case with the sports centre manager. 1449: I reevaluated the patient. Her family is at bedside to take her back to [facility]. Discussed results and discharge instructions with the patient and her family. They verbalized understanding and agreement. The patient is ready for discharge. 1500: Ordered Ondansetron HCl 1 homepack PO Medical Decision Medication Reconciliation: I attest that I have personally reviewed the patient' s current medication list Blood pressure screening: Patient was found to have an elevated blood pressure and was referred to their primary doctor for recheck and further treatment. Triage Nursing notes reviewed. The patient's presentation and history were concerning for intermittent vomiting and low-grade fever. Etiologies such as viral syndrome, pneumonia, urinary tract infection, obstruction, intra-abdominal pathology, sepsis, bacteremia, as well as others were entertained. The patient was evaluated. Her physical examination was rather benign. She had minimal to no complaints. She was hydrated. The patient was given a small dose of Zofran. She was observed and did well. Her CBC and chemistry panel unremarkable. Chest x-ray revealed no infiltrate. A urinalysis was negative. The patient had a CT scan of her abdomen and pelvis which did not reveal any evidence of obstruction. She had cholelithiasis but no evidence of cholecystitis. The patient's daughter states the gallstone issue is not new. The patient has never described any pain to consider biliary colic. She did have some moderate stool in rectal vault on CT imaging. The patient did have a soft bowel movement but not diarrhea here. She notes no constipation by history. I did discuss using an [id number] enema once a day for the next 2 days to help clean out. The patient was given a Zofran home pack. There is no indication for admission at this time and I discussed this with the patient's daughter. She is in agreement. I want the patient to be seen very soon in the outpatient setting and case management contacted [facility]. The patient will be seen tomorrow by the nurse practitioner. I daughter that she should be brought back to emergency department for any worsening symptoms and the daughter felt comfortable with this. By the evaluation outlined above other emergent etiologies such as those listed in the differential, as well as others, were deemed relatively unlikely. The patient was educated about the findings as listed above. All questions were answered and the patient was pleased with the treatment. Return instructions were outlined and the patient was discharged in stable condition. The patient was referred to her Primary for follow-up for a recheck of the current condition. Impression Primary Impression: Vomiting Additional Impression: Fecal retention Scribe Attestation The scribe's documentation has been prepared under my direction and personally reviewed by me in its entirety. I confirm that the note above accurately reflects all work, treatment, procedures, and medical decision making performed by me. Departure Information Dispostion Home / Self-Care Referrals Paulette Perales D.O. (PCP) Forms HOME CARE DOCUMENTATION FORM, IMPORTANT VISIT INFORMATION Patient Instructions My [facility] Additional Instructions Zofran 4 mg oral dissolving tablets: take one tablet and allow it to melt in your mouth every 4 hours as needed for nausea. Rest and drink plenty of fluids. Fleets enema: Use one per day for the next three days. Increase fiber in your diet. Return to the ER for worsening cough, abdominal pain, vomiting, fevers, bloody stools, or as needed. Follow-up with your primary care physician in one to 2 days for a recheck of your current condition. Problem Qualifiers Primary Impression: Vomiting Vomiting type: unspecified Vomiting Intractability: non-intractable Nausea presence: with nausea Qualified Codes: R11.2 - Nausea with vomiting, unspecified
[2017-02-07 15:34] VITALS: BP 132/66; PULSE 77; O2SAT 95
== END 2017-02-07 15:37 | disposition home or self-care (01) ==
LOC: C.EDB 10:13
DX: R11.2 Nausea with vomiting, unspecified (principal); K59.00 Constipation, unspecified; F03.90 Unspecified dementia, unspecified severity, without behavioral disturbance, psychotic disturbance, mood disturbance, and anxiety; F32.9 Major depressive disorder, single episode, unspecified; K80.20 Calculus of gallbladder without cholecystitis without obstruction; Z87.01 Personal history of pneumonia (recurrent); Z87.440 Personal history of urinary (tract) infections; Z90.89 Acquired absence of other organs; Z98.49 Cataract extraction status, unspecified eye; Z79.82 Long term (current) use of aspirin; Z79.899 Other long term (current) drug therapy

== ENCOUNTER 2017-05-26 02:07 | Emergency (ER) | payer OTHER ==
[~2017-05-26] VITALS: Ht 154.9 cm; Wt 62.2 kg
[~2017-05-26 02:07] MED LIST changes: +DTR/5 PO; -OXYB5TAB74 PO
[2017-05-26 02:08] VITALS: Ht 154.9 cm; Wt 62.2 kg
[2017-05-26] MEDS ORDERED: LIDOCAINE/EPINEPH/TETRACAINE 1 EA SYR EXT STA (02:39)
[2017-05-26] MEDS ORDERED: XYLOCAINE 1%/SOD BICARB 20 ML VIAL INFIL ONE (02:45)
--- NOTE | 2017-05-26 02:52 | EMERGENCY ROOM VISIT NOTE ---
History Report prepared by Karrie: Yelena Parker Under the Supervision of: Dr. Don White M.D. First contact with patient: 02:07 Chief Complaint: FALL Stated Complaint: FALL History of Present Illness The patient is an 86 year old female who presents to the Emergency Room with complaints of an episode of a fall occurring prior to arrival. Per EMS, the patient lives at [facility]. They state that she was walking to bed when she fell and hit her head on her night stand. She denies hip pain, shoulder pain , and taking blood thinners. EMS notes that the daughter was notified and said she would be on her way in. Source of History: patient, EMS Onset: prior to arrival Position: other (global) Quality: other (global) Timing: other (episode) Note: The patient denies hip pain, shoulder pain, and taking blood thinners. Review of Systems See HPI for pertinent positives & negatives. A total of 10 systems reviewed and were otherwise negative. Past Medical & Surgical Medical Problems: (1) Dementia (2) Depression Surgical Problems: (1) History of cataract surgery (2) History of tonsillectomy Family History Noncontributory due to advanced age Social History Smoking Status: Never Smoker Alcohol Use: none Drug Use: none Housing Status: longterm Occupation Status: retired Current/Historical Medications Scheduled Acetaminophen (Tylenol Extra Strength), 1,000 MG PO Q8H Aspirin (Aspirin Ec), 81 MG PO DAILY Cholecalciferol (Vitamin D3), 1,000 INTER.UNIT PO DAILY Donepezil HCl (Aricept), 5 MG PO DAILY Lisinopril (Prinivil), 5 MG PO DAILY Multivitamins/Minerals (Mvi With Minerals), 1 TAB PO DAILY Oxybutynin Chloride (Ditropan), 5 MG PO BID Sertraline (Zoloft), 25 MG PO DAILY Allergies Coded Allergies: No Known Allergies (Unverified , 01/28/17) Physical Exam Vital Signs Date Time Temp Pulse Resp B/P (MAP) Pulse Ox O2 Delivery O2 Flow Rate FiO2 05/26/17 04:43 36.1 89 18 106/85 97 05/26/17 04:41 36.1 89 18 106/85 97 Room Air 05/26/17 02:08 36.1 81 18 150/73 96 Room Air Physical Exam GENERAL: Patient is well appearing and in no acute distress. Pleasantly demented. HEENT: Large amount of bruising/swelling of the right face/religion with a 3 cm stellate laceration to the right eyebrow and 2 cm laceration to the right religion. Normocephalic, mucous membranes moist, no nasal congestion, no scleral icterus. NECK: No stridor, no adenopathy, no meningismus, trachea is midline. LUNGS: No dyspnea. Clear to auscultation and equal bilaterally. No wheeze, no rhonchi. HEART: Regular rate and rhythm. No murmurs, rubs, gallops appreciated. ABDOMEN: Soft, nontender, bowel sounds positive, no masses appreciated, no peritonitis. BACK: No midline tenderness, no CVA tenderness EXTREMITIES: No cyanosis, no edema. Frozen right shoulder. Abrasion to right knee with some bruising. NEUROLOGIC: Alert and oriented, no acute motor or sensory deficits, no focal weakness, cranial nerves grossly intact. SKIN: No rash, no jaundice, no diaphoresis. Medical Decision & Procedures ER Provider Diagnostic Interpretation: Radiology results and stated below per my review and radiologist interpretation: CT HEAD: Comparison CT head 04/02/16. No ICH, mass effect, or edema. Involutional and chronic small vessel ischemic changes. Stable calcified meningioma along the high left parietal convexity. Right maxillary sinusitis. Clear mastoid air cells. Lateral right frontal scalp swelling. No skull fracture. Radiologist: Ami Bailey M.D. Study ready at 02:53 and initial results transmitted at 03:07. CT C SPINE: Impression: No acute fracture or dislocation. Cervical spinal canal remains patent. Comment: Vertebral body height maintained. Trace degenerative retrolisthesis of C4 on C5 and C5 on C6. Multilevel degenerative disc disease, moderate-severe at C4-C5 and C5-C6. Degenerative changes at the anterior C1-C2 articulation. Cervical spine canal remains patent. Paravertebral soft tissues are without acute abnormality. Lung apices are clear. Radiologist: Ami Bailey M.D. Study ready at 02:53 and initial results transmitted at 03:22. CHEST X-RAY 1 VIEW: The results were interpreted by me. No fracture. No dislocation. No pneumothorax. Hardware in the left humerus. PELVIS X-RAY 1 VIEW: The results were interpreted by me. No fracture. No dislocation. Medications Administered Medications (Trade) Dose Ordered Sig/Hudson Route Start Time Stop Time Status Last Admin Dose Admin Tetracaine/ Epinephrine/ Lidocaine (L.e.t. Gel 4%/ 1:100/0.5%) 1 ea NOW STAT EXT 05/26/17 02:39 05/26/17 02:40 DC 05/26/17 03:01 1 EA ED Course 0207: The patient was evaluated in room B7. A complete history and physical exam was performed. 0235: Tetanus status, will review with PCP. 0239: Ordered Tetracaine/Epinephrine/Lidocaine 1 ea EXT. 0245: Ordered Lidocaine HCl 20 ml INFIL. 0330: I reevaluated the patient and she is stable. 0403: Reevaluated the patient and she is stable. Discussed results and discharge instructions: She verbalized understanding and agreement. The patient is ready for discharge. Medical Decision Differential: Intracranial Injury, Cervical Injury, Intrathoracic/Abdominal Injury, Neurologic Injuries, Fractures/Dislocations, Lacerations, Tetanus Status , amongst other pathologies entertained. 86 yr old very pleasantly demented female arrives with injury to right side of face following mechanical fall. Given age went ahead with CT head/neck which were negative for acute injury (reviewed incidentals with daughter). Lacs sutured by Abimbola Bhandari PA-C. Patient stable, able to ambulate at her baseline level. Discussed back to longterm. Medication Reconcilliation Current Medication List: was personally reviewed by me Blood Pressure Screening Patient's blood pressure: Elevated blood pressure Blood pressure disposition: Elevated BP felt to be situational Impression Primary Impression: Fall Additional Impressions: Head injury, closed Scalp laceration Scribe Attestation The scribe's documentation has been prepared under my direction and personally reviewed by me in its entirety. I confirm that the note above accurately reflects all work, treatment, procedures, and medical decision making performed by me. Departure Information Dispostion Home / Self-Care Referrals Paulette Perales D.O. (PCP) Forms HOME CARE DOCUMENTATION FORM, IMPORTANT VISIT INFORMATION Patient Instructions My [facility] Additional Instructions Staple care: Read head injury handout and return for any symptoms. Keep wound clean and dry. No water on the area for 12-24 hrs then no soaking until haroon removed. Do not allow any crusting or dried blood to accumulate on haroon. If this occurs, use a 1:1 solution of hydrogen peroxide/water on a Q-tip to clean the wound. Use an antibiotic ointment for 3-4 days, then let wound dry. Staple removal in 8 days. Return sooner for any signs of infection (increasing redness , swelling, drainage). Ice and elevate for swelling and pain. Tylenol 1000 mg every 6 hrs for pain. Keep covered when in sun until haroon removed then SPF 50 or higher for one year. Vitamin E oil if desired two weeks after staple removal for reduction of scar. Laceration care: Keep wound clean and dry. Do not allow any crusting or dried blood to accumulate on sutures. If this occurs, use a 1:1 solution of hydrogen peroxide/ water on a Q-tip to clean the wound. Use an antibiotic ointment for 3-4 days, then let wound dry. Suture removal in 5-7 days. Return sooner for any signs of infection (increasing redness, swelling, drainage). Ice and elevate for swelling and pain. Keep covered when in sun until sutures removed then SPF 50 or higher for one year. Vitamin E oil if desired two weeks after suture removal for reduction of scar Problem Qualifiers
--- NOTE | 2017-05-26 04:07 | EMERGENCY ROOM VISIT NOTE ---
ED Visit Note I was asked the laceration repairs of this patient. Location: Scalp Total length: 2cm Complexity: Simple Verbal consent was obtained after the risks and benefits were explained, including but not limited to bleeding, scarring, infection, pain, and bone/ nerve damage. At this time, the risks of the procedure are less than the risks of NOT performing the procedure. A time out was taken and the correct patient and site identified. The scalp was prepped with betadine. The target area was anesthetized with LET. Copious irrigation was performed using saline. The skin was re-prepped with betadine, the hair cleared from the wound, and a sterile field set. The wound was explored for foreign bodies and none found. Debridement was not performed. The wound edges were approximated using 5 surgical haroon in the standard fashion. Hemostasis and excellent approximation was achieved. Antibacterial ointment and a sterile dressing applied. Detailed wound care instructions and signs and symptoms of infection reviewed with the pt/family. No complications and the patient tolerated the procedure well. Location: right eyebrow Total length: 3cm, stellate Complexity: complex Verbal consent was obtained after the risks and benefits were explained, including but not limited to bleeding, scarring, infection, pain, and bone/joint /nerve damage. At this time, the risks of the procedure are less than the risks of NOT performing the procedure. A time out was taken and the correct patient and site identified. The skin was prepped with betadine. The target area was anesthetized with LET. Copious irrigation was performed using NSS. The skin was re-prepped with betadine and a sterile field set. The wound was explored for foreign bodies and none found. Examination revealed no injury to deep structures such as tendons, bone, or significant blood vessels. Debridement was not performed. The wound edges were approximated using 7, 6-0 simple interrupted nylon sutures. Hemostasis and excellent approximation was achieved. Antibacterial ointment and a sterile dressing applied. Detailed wound care instructions and signs and symptoms of infection reviewed with the pt/family. No complications and the patient tolerated the procedure well. Problem List Medical Problems: (1) Dementia Status: Chronic (2) Depression Status: Chronic Current/Historical Medications Scheduled Acetaminophen (Tylenol Extra Strength), 1,000 MG PO Q8H Aspirin (Aspirin Ec), 81 MG PO DAILY Cholecalciferol (Vitamin D3), 1,000 INTER.UNIT PO DAILY Donepezil HCl (Aricept), 5 MG PO DAILY Lisinopril (Prinivil), 5 MG PO DAILY Multivitamins/Minerals (Mvi With Minerals), 1 TAB PO DAILY Oxybutynin Chloride (Ditropan), 5 MG PO BID Sertraline (Zoloft), 25 MG PO DAILY Allergies Coded Allergies: No Known Allergies (Unverified , 01/28/17) Vital Signs Date Time Temp Pulse Resp B/P (MAP) Pulse Ox O2 Delivery O2 Flow Rate FiO2 05/26/17 02:08 36.1 81 18 150/73 96 Room Air Medications Administered Medications (Trade) Dose Ordered Sig/[place]udson Route Start Time Stop Time Status Last Admin Dose Admin Tetracaine/ Epinephrine/ Lidocaine (L.e.t. Gel 4%/ 1:100/0.5%) 1 ea NOW STAT EXT 05/26/17 02:39 05/26/17 02:40 DC 05/26/17 03:01 1 EA Departure Information Referrals Paulette Perales D.O. (PCP) Forms HOME CARE DOCUMENTATION FORM, IMPORTANT VISIT INFORMATION Patient Instructions [facility] Additional Instructions Staple care: Read head injury handout and return for any symptoms. Keep wound clean and dry. No water on the area for 12-24 hrs then no soaking until haroon removed. Do not allow any crusting or dried blood to accumulate on haroon. If this occurs, use a 1:1 solution of hydrogen peroxide/water on a Q-tip to clean the wound. Use an antibiotic ointment for 3-4 days, then let wound dry. Staple removal in 8 days. Return sooner for any signs of infection (increasing redness , swelling, drainage). Ice and elevate for swelling and pain. Tylenol 1000 mg every 6 hrs for pain. Keep covered when in sun until haroon removed then SPF 50 or higher for one year. Vitamin E oil if desired two weeks after staple removal for reduction of scar. Laceration care: Keep wound clean and dry. Do not allow any crusting or dried blood to accumulate on sutures. If this occurs, use a 1:1 solution of hydrogen peroxide/ water on a Q-tip to clean the wound. Use an antibiotic ointment for 3-4 days, then let wound dry. Suture removal in 5-7 days. Return sooner for any signs of infection (increasing redness, swelling, drainage). Ice and elevate for swelling and pain. Keep covered when in sun until sutures removed then SPF 50 or higher for one year. Vitamin E oil if desired two weeks after suture removal for reduction of scar
[2017-05-26 04:43] VITALS: BP 106/85; PULSE 89; TEMP 36.1; O2SAT 97
--- NOTE | 2017-05-26 06:31 | DIAGNOSTIC IMAGING REPORT ---
CT OF THE CERVICAL SPINE CLINICAL HISTORY: Neck pain status post trauma COMPARISON STUDY: No previous studies for comparison. CT DOSE: TECHNIQUE: CT scan of the cervical spine was performed from the skull base to the thoracic inlet. Images are reviewed in the axial, sagittal, and coronal planes. IV contrast was not administered for this examination. A dose lowering technique was utilized adhering to the principles of ALARA. FINDINGS: The visualized portions of the lung apices reveal no evidence of pneumothorax. The prevertebral soft tissues are normal. No fractures or subluxations are visualized. There are multilevel degenerative changes IMPRESSION: No evidence of acute fracture or traumatic subluxation. Electronically signed by: Kingsley Myrick M.D. 05/26/2017 6:30 AM Dictated Date/Time: 05/26/2017 6:28 AM
--- NOTE | 2017-05-26 06:34 | DIAGNOSTIC IMAGING REPORT ---
PELVIS 1 OR 2 VIEW ROUTINE CLINICAL HISTORY: Pelvic pain status post trauma COMPARISON STUDY: August 05, 2015 FINDINGS: No fractures or dislocations are visualized. There is no SI joint diastases. There is no symphysis diastases. Degenerative changes are present within the visualized lumbar spine. IMPRESSION: No fractures identified. Electronically signed by: Kingsley Myrick M.D. 05/26/2017 6:32 AM Dictated Date/Time: 05/26/2017 6:32 AM
--- NOTE | 2017-05-26 07:05 | DIAGNOSTIC IMAGING REPORT ---
SINGLE VIEW CHEST CLINICAL HISTORY: Fall. FINDINGS: An AP, portable, upright chest radiograph is compared to study dated 01/28/2017. The examination is degraded by portable technique and patient rotation. The heart is top normal for projection and there is atherosclerotic calcification of the thoracic aorta. The pulmonary vasculature is noncongested. Calcified mediastinal and hilar lymph nodes are observed. Chronic interstitial thickening is similar to previous. There are low lung volumes. No airspace consolidation, large pleural effusion, or pneumothorax is seen. The skeletal structures are osteopenic. Chronic posttraumatic deformity and postoperative change is seen in the left humerus. IMPRESSION: No acute cardiopulmonary abnormality. Electronically signed by: Jimbo Yung M.D. 05/26/2017 7:04 AM Dictated Date/Time: 05/26/2017 7:03 AM
--- NOTE | 2017-05-26 07:15 | DIAGNOSTIC IMAGING REPORT ---
CT SCAN OF THE BRAIN WITHOUT IV CONTRAST CLINICAL HISTORY: Fall with head injury. COMPARISON STUDY: CT of the brain dated 04/02/2016. TECHNIQUE: Unenhanced axial CT scan of the brain is performed from the vertex to the skull base. CT DOSE: 883.01 mGy.cm FINDINGS: Brain parenchyma: There are age-related involutional changes noting moderate patchy subcortical and periventricular microangiopathic change. There is no hemorrhage, mass effect, or evidence of acute territorial ischemia by CT criteria. Kerns-white matter is preserved. No extra-axial fluid collection is seen. A 1.2 cm calcified extra-axial nodule in the high left parietal lobe seen on image #24 is typical in appearance for a small meningioma. Ventricles, sulci, cisterns: Prominent secondary to involutional change. Intracranial vasculature: There is atherosclerotic calcification of the cavernous carotid arteries. Calvarium: The skeletal structures are osteopenic. No depressed calvarial fracture is seen. A right orbital floor fracture is suspected. There is also likely fracture involving the posterior wall of the right maxillary antrum. Soft tissues: There is a right parietal scalp contusion/laceration. Sinuses and mastoids: There is an air-fluid level in the right maxillary antrum. This contains hyperdense material which likely represents blood. The remaining visualized paranasal sinuses are clear. The mastoid air cells are well pneumatized. Orbits: A right orbital floor fracture is suspected. The left bony orbit is grossly intact. There is evidence of bilateral ocular lens surgery. IMPRESSION: 1. Senescent changes as above with no hemorrhage, mass effect, or evidence of acute territorial ischemia by CT criteria. 2. A right frontoparietal scalp contusion/laceration. 3. No depressed calvarium fracture is seen. 4. Suspect a right orbital floor fracture as well as right maxillary antrum fracture. Blood is noted in the right maxillary sinus. Electronically signed by: Jimbo Yung M.D. 05/26/2017 7:13 AM Dictated Date/Time: 05/26/2017 7:08 AM
== END 2017-05-26 04:43 | disposition home or self-care (01) ==
LOC: C.EDB 02:07 → EDBD 02:07 → C.EDB 04:43
DX: S01.01XA Laceration without foreign body of scalp, initial encounter (principal); S01.111A Laceration without foreign body of right eyelid and periocular area, initial encounter; W22.8XXA Striking against or struck by other objects, initial encounter; Y92.122 Bedroom in nursing home as the place of occurrence of the external cause; F03.90 Unspecified dementia, unspecified severity, without behavioral disturbance, psychotic disturbance, mood disturbance, and anxiety; F32.9 Major depressive disorder, single episode, unspecified; Z79.82 Long term (current) use of aspirin; Z79.899 Other long term (current) drug therapy

== ENCOUNTER 2017-09-02 16:25 | Inpatient (IN) | payer OTHER ==
[~2017-09-02] VITALS: Ht 149.9 cm; Wt 61.3 kg
--- NOTE | 2017-09-02 18:17 | EMERGENCY ROOM VISIT NOTE ---
History First contact with patient: 17:48 Chief Complaint: VOMITING Stated Complaint: THROWING UP Nursing Triage Summary: Vomiting since last night. Poor appetite today. History of Present Illness The patient is a 87 year old female who presents to the Emergency Room from [facility] with vomiting since last night. Spoke with [facility] staff member Sandy on the phone, and she says pt has been progressively weakening over the course of 1 week, requiring more assistance for walking and getting in and out of chair. Low grade fever last night of 99.2, given tylenol, and temp went back down to normal range. Staff report she has "not been herself " due to the weakness, but do not contribute any other symptoms. Pt is demented, ROS is limited. Pt's son and POA is at bedside. Review of Systems See HPI for pertinent positives and negatives. Limited ROS due to pt's mental status. Past Medical/Surgical History Medical Problems: (1) Dementia (2) Depression Surgical Problems: (1) History of cataract surgery (2) History of tonsillectomy Family History Noncontributory due to advanced age Social History Smoking Status: Never Smoker Alcohol Use: none Drug Use: none Housing Status: long-term Occupation Status: retired Current/Historical Medications Scheduled Aspirin (Aspirin Ec), 81 MG PO DAILY Cholecalciferol (Vitamin D3), 2,000 UNITS PO DAILY Donepezil HCl (Aricept), 5 MG PO DAILY Lisinopril (Prinivil), 5 MG PO DAILY Methylcellulose (Laxative) (Citrucel Fiber Laxative), 1 TBS PO QAM Multivitamins/Minerals (Mvi With Minerals), 1 TAB PO DAILY Oxybutynin Chloride (Ditropan), 5 MG PO BID Sennosides-Docusate Sodium (Senna S), 2 TABS PO HS Sertraline (Zoloft), 25 MG PO DAILY Scheduled PRN Acetaminophen (Tylenol), 500-1,000 MG PO Q8H PRN for Pain Bisacodyl (Dulcolax), 1 SUPP FL DAILY PRN for Constipation Magnesium Citrate (Magnesium Citrate), 1 DOSE PO UD PRN for Constipation Ondansetron Hcl (Zofran), 4 MG PO Q4H PRN for Nausea Sodium Phosphates (Fleet Enema Six Pack), 118 ML FL DAILY PRN for Constipation Physical Exam Vital Signs Date Time Temp Pulse Resp B/P (MAP) Pulse Ox O2 Delivery O2 Flow Rate FiO2 09/02/17 23:14 97 Nasal Cannula 2.0 09/02/17 21:01 96 Nasal Cannula 2.0 09/02/17 21:01 96 Nasal Cannula 2.0 09/02/17 21:00 74 16 132/64 88 Room Air 09/02/17 16:35 36.9 120 17 127/72 96 Room Air Physical Exam GENERAL: Awake, well-appearing, in no distress. Cold to the touch on all four extremities. Pleasantly demented. HENT: Normocephalic, atraumatic. Oropharynx unremarkable, moist oral mucosa. EYES: Normal conjunctiva. Sclera non-icteric. NECK: Supple. No nuchal rigidity. FROM. No JVD. RESPIRATORY: Clear to auscultation. CARDIAC: Regular rate, normal rhythm. Extremities cold to touch. Appear well perfused. ABDOMEN: Soft, non-distended. No tenderness to palpation. No rebound or guarding. No masses. RECTAL: Deferred. MUSCULOSKELETAL: There is no CVA tenderness to palpation. LOWER EXTREMITIES: Calves are equal size bilaterally and non-tender. No edema. No discoloration. SKIN: No rash or jaundice noted. Medical Decision & Procedures Laboratory Results 09/02/17 18:55 Red Blood Count 4.02, Mean Corpuscular Volume 89.6, Mean Corpuscular Hemoglobin 30.6, Mean Corpuscular Hemoglobin Concent 34.2, Mean Platelet Volume 9.7, Neutrophils (%) (Auto) 68.4, Lymphocytes (%) (Auto) 20.0, Monocytes (%) (Auto) 9.8, Eosinophils (%) (Auto) 1.4, Basophils (%) (Auto) 0.1, Neutrophils # (Auto) 7.37, Lymphocytes # (Auto) 2.15, Monocytes # (Auto) 1.05, Eosinophils # (Auto) 0.15, Basophils # (Auto) 0.01 09/02/17 18:55 Test 09/02/17 18:55 09/02/17 19:11 09/02/17 19:14 09/02/17 19:17 White Blood Count 10.76 K/uL (4.8-10.8) Red Blood Count 4.02 M/uL (4.2-5.4) Hemoglobin 12.3 g/dL (12.0-16.0) Hematocrit 36.0 % (37-47) Mean Corpuscular Volume 89.6 fL (80-100) Mean Corpuscular Hemoglobin 30.6 pg (25-34) Mean Corpuscular Hemoglobin Concent 34.2 g/dl (32-36) Platelet Count 306 K/uL (130-400) Mean Platelet Volume 9.7 fL (7.4-10.4) Neutrophils (%) (Auto) 68.4 % Lymphocytes (%) (Auto) 20.0 % Monocytes (%) (Auto) 9.8 % Eosinophils (%) (Auto) 1.4 % Basophils (%) (Auto) 0.1 % Neutrophils # (Auto) 7.37 K/uL (1.4-6.5) Lymphocytes # (Auto) 2.15 K/uL (1.2-3.4) Monocytes # (Auto) 1.05 K/uL (0.11-0.59) Eosinophils # (Auto) 0.15 K/uL (0-0.5) Basophils # (Auto) 0.01 K/uL (0-0.2) RDW Standard Deviation 46.5 fL (36.4-46.3) RDW Coefficient of Variation 14.3 % (11.5-14.5) Immature Granulocyte % (Auto) 0.3 % Immature Granulocyte # (Auto) 0.03 K/uL (0.00-0.02) Estimated GFR () 72.5 Estimated GFR (Non- 62.5 BUN/Creatinine Ratio 19.4 (10-20) Calcium Level 9.3 mg/dl (8.5-10.1) Total Bilirubin 0.7 mg/dl (0.2-1) Aspartate Amino Transf (AST/SGOT) 10 U/L (15-37) Alanine Aminotransferase (ALT/SGPT) 23 U/L (12-78) Alkaline Phosphatase 99 U/L (45-117) Total Protein 6.9 gm/dl (6.4-8.2) Albumin 3.0 gm/dl (3.4-5.0) Globulin 3.9 gm/dl (2.5-4.0) Albumin/Globulin Ratio 0.8 (0.9-2) Lipase 129 U/L (73-393) Bedside Lactic Acid Venous 0.86 mmol/L (0.90-1.70) Bedside Troponin I < 0.030 ng/ml (0-0.045) Bedside Hemoglobin 12.2 g/dl (12.0-16.0) Bedside Hematocrit 36 % (37-47) Bedside Sodium 134 mEq/L (135-144) Bedside Potassium 4.1 mEq/L (3.3-5.0) Bedside Chloride 97 mEq/L (101-112) Bedside Total CO2 27 mEq/l (24-31) Anion Gap 16.0 mmol/L (16-25) Bedside Blood Urea Nitrogen 15 mg/dl (7-18) Bedside Creatinine 0.8 mg/dl (0.6-1.3) Bedside Glucose (other) 113 mg/dl (70-99) Bedside Ionized Calcium (Rory) 1.24 mmol/l (1.12-1.32) Test 09/02/17 20:50 Urine Color YELLOW Urine Appearance CLOUDY (CLEAR) Urine pH 7.0 (4.5-7.5) Urine Specific Mulhall 1.024 (1.000-1.030) Urine Protein 1+ (NEG) Urine Glucose (UA) NEG (NEG) Urine Ketones NEG (NEG) Urine Occult Blood 2+ (NEG) Urine Nitrite POS (NEG) Urine Bilirubin NEG (NEG) Urine Urobilinogen NEG (NEG) Urine Leukocyte Esterase LARGE (NEG) Urine WBC (Auto) >30 /hpf (0-5) Urine RBC (Auto) 10-30 /hpf (0-4) Urine Hyaline Casts (Auto) 0 /lpf (0-5) Urine Epithelial Cells (Auto) 0-5 /lpf (0-5) Urine Bacteria (Auto) 4+ (NEG) Medications Administered Medications (Trade) Dose Ordered Sig/Hudson Route Start Time Stop Time Status Last Admin Dose Admin Sodium Chloride 1,000 ml @ 999 mls/hr Q1H1M ONCE IV 09/02/17 18:30 09/02/17 19:30 DC 09/02/17 18:57 999 MLS/HR Ondansetron HCl (Zofran Inj) 4 mg NOW STAT IV 09/02/17 18:28 09/02/17 18:30 DC 09/02/17 18:57 4 MG Miscellaneous (Soap Suds Enema) 1 ea ONE STAT FL 09/02/17 20:51 09/02/17 20:54 DC 09/02/17 21:27 1 EA Albuterol/ Ipratropium (Duoneb) 3 ml ONE STAT INH 09/02/17 22:11 09/02/17 22:13 DC 09/02/17 22:44 3 ML Levofloxacin (Levaquin / D5W) 750 mg NOW ONCE IV 09/03/17 00:00 09/03/17 00:01 DC 09/03/17 00:00 750 MG Procedure SINGLE VIEW CHEST CLINICAL HISTORY: Progressive weakness. FINDINGS: An AP, portable, upright chest radiograph is compared to study dated 05/26/2017. The examination is degraded by portable technique and patient rotation. The heart is top normal for projection and there is atherosclerotic calcification of the thoracic aorta. The pulmonary vasculature is noncongested. Calcified mediastinal and hilar lymph nodes are observed. Chronic interstitial thickening is similar to previous. There are low lung volumes and left basilar atelectasis. No airspace consolidation, large pleural effusion, or pneumothorax is seen. The skeletal structures are osteopenic. Chronic posttraumatic deformity and postoperative change is seen in the left humerus. IMPRESSION: No acute cardiopulmonary abnormality. Electronically signed by: Jimbo Yung M.D. 09/02/2017 7:16 PM Dictated Date/Time: 09/02/2017 7:15 PM ABD/PELVIS IV CONTRAST ONLY CLINICAL HISTORY: 87 years-old Female presenting with vomiting. TECHNIQUE: Multidetector CT of the abdomen and pelvis was performed after the administration of intravenous contrast. IV contrast: 93 mL of Optiray 320. A dose lowering technique was used consistent with the principles of ALARA (as low as reasonably achievable). COMPARISON: 02/07/2017. CT DOSE (mGy.cm): The estimated cumulative dose is 512.95 mGy.cm. FINDINGS: Instructional Technology Director topogram: Unremarkable. Lung bases: Extensive basilar opacities, likely atelectasis. Calcified right hilar and mediastinal lymphadenopathy noted. Heart top normal in size. Aortic valve calcification. No pericardial or pleural effusion. Liver: Normal morphology. Multiple calcifications likely related to history of chronic granulomatous infection. No focal lesion. Patent hepatic vasculature. Biliary: No intrahepatic or extrahepatic biliary ductal dilatation. Gallbladder contains gallstones. Pancreas: Mild parenchymal atrophy. Spleen: Numerous splenic for internal calcifications also likely relate to chronic granulomatous infection. Adrenal glands: Normal. Kidneys and ureters: Well-defined hypodensity with thin mural calcification at the right lower pole likely minimally complex cyst and grossly unchanged from prior exam, again measuring approximately 2.1 cm. Significant urothelial thickening on the right. No hydronephrosis or nephrolithiasis. Urothelial thickening is new from prior exam. The distal ureters are poorly visualized. Bladder: Normal. Pelvic organs: Mass in the region of the right adnexa is likely ovarian in origin. The right ovary measures 4.5 cm in diameter, which is stable to slightly decreased in size comparison to prior exam. Left ovary normal. No convincing evidence of uterine fibroid. Bowel: Large stool burden in the distended rectum with mild rectal wall thickening and mild mesorectal fat infiltration. Moderate stool burden noted elsewhere in the mildly distended colon. Diverticulosis of the sigmoid colon. Medialization of the cecum. Appendix not visualized. No bowel obstruction. Small hilar hernia suspected. A duodenal diverticula may also be present at the level of the pancreatic head. Peritoneal cavity: No free fluid or intraperitoneal gas. Lymph nodes: No enlarged lymph nodes in the abdomen or pelvis. Vasculature: Atherosclerosis of the normal caliber abdominal aorta. IVC patent. Abdominal wall: Diastasis of the rectus abdominis. Musculoskeletal: Degenerative changes of the spine. IMPRESSION: 1. Large stool burden in the distended rectum with evidence suggesting early stercoral proctitis. No bowel obstruction or other evidence of acute bowel pathology. 2. Interval development of significant urothelial thickening of the right renal collecting system and right ureter. This could indicate upper tract infection. Correlate with urinalysis. Underlying neoplasm is considered less likely given the diffuse appearance. No hydronephrosis. 3. Evidence of chronic granulomatous infection. 4. Abnormally enlarged right ovary for the patient's postmenopausal age. Further evaluation with ultrasound on a nonurgent basis is recommended given the concern for underlying neoplasm. 5. Extensive bibasilar atelectasis. The report will be called/faxed according to standard departmental protocol. Electronically signed by: Socrates Ramos M.D. 09/02/2017 8:23 PM Dictated Date/Time: 09/02/2017 8:14 PM Repeat CXR shows: CHEST ONE VIEW PORTABLE CLINICAL HISTORY: 87 years-old Female presenting with hypoxia. TECHNIQUE: Portable upright AP view of the chest was obtained. COMPARISON: 09/02/2017 at 7:01 PM. FINDINGS: Atherosclerosis of the aortic arch. Cardiac silhouette normal in size. Multiple calcified right hilar and mediastinal lymph nodes. Lungs and pleural spaces clear. Plate and screw fixation of the proximal left humerus. Upper abdomen normal. IMPRESSION: 1. No acute cardiopulmonary disease. 2. Evidence of old granulomatous disease. Electronically signed by: Socrates Ramos M.D. 09/02/2017 10:26 PM Dictated Date/Time: 09/02/2017 10:25 PM ED Course 1800 seen and assessed pt. Spoke with Sandy at [facility] re: pt's clinical picture, see HPI. 5 D/w attending. Ordered labs inc cbc, cmp, lipase, CT abd with IV contrast, CXR, UA cath w/cx, troponin, lactic acid, stat ECG. Also ordered IV NSS 1L @ 999ml/hr, 4mg Zofran IV. [address] abd/pelv read - CXR wnl. CT abd shows large stool burden in rectum, neg for obstruction, free air or perforation. 0 Soap suds enema done. Large bed redmond of stool evacuated, soft. Nurse reported O2 sat at 88. Ordered repeat CXR. Reevaluated pt, she states she is feeling better. Satting at 93-94. Pt's son reports no O2 need at home. Reviewed CXR from about a week ago - showed similar findings of chronic increased interstitial findings with hypoventilatory changes and possible small right pleural effusion and patchy airspace disease in the left lower lobe, representing atelectasis/scarring versus developing pneumonia. 2216 UA is + large leuk, + nitrite. Ureteral thickening on scan indicates treatment for pyelonephritis. Ordered 750mg Levaquin to be given in the ED. 2300 Discussed with case mgmt re: going back to [facility] with moderate O2 need. 2348 D/w pt's son the logistics of O2 at this time, and decision made to admit pt due to hypoxia. Medical Decision The patient is a 87 year old female who presents to the Emergency Room from [facility] with vomiting since last night. Spoke with [facility] staff member Sandy on the phone, and she says pt has been progressively weakening over the course of 1 week, requiring more assistance for walking and getting in and out of chair. Low grade fever last night of 99.2, given tylenol, and temp went back down to normal range. Staff report she has "not been herself " due to the weakness, but do not contribute any other symptoms. Pt is demented, ROS is limited. Pt's son and POA is at bedside. Ddx: UTI, pneumonia, viral gastroenteritis, ACS Being that pt is a poor historian, and symptoms have been somewhat ongoing for several weeks, we were able to find evidence for a pyelonephritis and possible bronchitis treated with Levaquin 750mg, course of 5 days. Pt was also found to be very constipated on CT, which may have contributed to her nausea with emesis. Pt reportedly felt better after a large movement was evacuated with enema. Pt also became somewhat hypoxic 88%, 2L O2 so a repeat CXR was ordered which showed no effusions or worsening edema. Duonebs ordered. Discussed with case mgmt re: going back to [facility] with moderate O2 need. Due to logistics of [facility] not being able to give O2 all night for pt, d/w pt's son the options - and decision made to admit given hypoxia. [facility] hospitalist contacted. Impression Primary Impression: Pyelonephritis Additional Impressions: Constipation Bronchitis Departure Information Dispostion Admitted as an inpatient Condition GOOD Patient Instructions My [facility] Resident Tracking Resident Involvement: Resident Care Provided Care Provided: Adult ED Problem Qualifiers
[2017-09-02] MEDS ORDERED: METHPOW7 PO (18:21)
[2017-09-02] MEDS ORDERED: BISA10SU38 PR (18:23)
[2017-09-02] MEDS ORDERED: SODI1ENE PR (18:26)
[2017-09-02] MEDS ORDERED: ONDANSETRON INJ 2 MG/ML 2 ML VIAL IV STA (18:28)
[2017-09-02] MEDS ORDERED: MAGN1SOL7 PO (18:29)
[2017-09-02] MEDS ORDERED: OPTIRAY 320 IV PRN (18:30)
[2017-09-02] MEDS ORDERED: SODIUM CHLORIDE 0.9% 1000ML 1,000 ML IV ONE (18:30)
[2017-09-02] MEDS ORDERED: SENN-91 PO (18:31)
[2017-09-02] MEDS ORDERED: TYLOTC500 PO (18:33)
[2017-09-02] MEDS ORDERED: CHOL2000 PO (18:34)
[2017-09-02] MEDS ORDERED: ONDA4TAB46 PO (18:36)
[2017-09-02 19:16] LABS: BASO % 0.1 %; BASO ABS # 0.01 K/uL (0-0.2); EOS % 1.4 %; EOS ABS # 0.15 K/uL (0-0.5); HEMOGLOBIN 12.3 g/dL (12.0-16.0); IG# 0.03 K/uL (0.00-0.02); LYMPH ABS # 2.15 K/uL (1.2-3.4); MEAN CELL VOLUME 89.6 fL (80-100); MEAN CORPUSCULAR HEMOGLOBIN 30.6 pg (25-34); MEAN CORPUSCULAR HGB CONC 34.2 g/dl (32-36); MEAN PLATELET VOLUME 9.7 fL (7.4-10.4); MONO % 9.8 %; MONO ABS # 1.05 K/uL (0.11-0.59); NEUT % 68.4 %; NEUT ABS # 7.37 K/uL (1.4-6.5); PLATELET COUNT 306 K/uL (130-400); RED CELL DISTRIBUTION WIDTH CV 14.3 % (11.5-14.5); RED CELL DISTRIBUTION WIDTH SD 46.5 fL (36.4-46.3); WHITE BLOOD COUNT 10.76 K/uL (4.8-10.8)
--- NOTE | 2017-09-02 19:18 | DIAGNOSTIC IMAGING REPORT ---
SINGLE VIEW CHEST CLINICAL HISTORY: Progressive weakness. FINDINGS: An AP, portable, upright chest radiograph is compared to study dated 05/26/2017. The examination is degraded by portable technique and patient rotation. The heart is top normal for projection and there is atherosclerotic calcification of the thoracic aorta. The pulmonary vasculature is noncongested. Calcified mediastinal and hilar lymph nodes are observed. Chronic interstitial thickening is similar to previous. There are low lung volumes and left basilar atelectasis. No airspace consolidation, large pleural effusion, or pneumothorax is seen. The skeletal structures are osteopenic. Chronic posttraumatic deformity and postoperative change is seen in the left humerus. IMPRESSION: No acute cardiopulmonary abnormality. Electronically signed by: Jimbo Yung M.D. 09/02/2017 7:16 PM Dictated Date/Time: 09/02/2017 7:15 PM
[2017-09-02 19:31] LABS: ISTAT CREATININE 0.8 mg/dl (0.6-1.3); ISTAT IONIZED CALCIUM 1.24 mmol/l (1.12-1.32); ISTAT POTASSIUM 4.1 mEq/L (3.3-5.0)
[2017-09-02 19:35] LABS: ALT/SGPT 23 U/L (12-78); AST/SGOT 10 U/L (15-37); BLOOD UREA NITROGEN 16 mg/dl (7-18); CALCIUM 9.3 mg/dl (8.5-10.1); CARBON DIOXIDE 28 mmol/L (21-32); CREATININE 0.83 mg/dl (0.60-1.20); GLUCOSE 109 mg/dl (70-99); LIPASE 129 U/L (73-393); POTASSIUM 4.1 mmol/L (3.5-5.1); SODIUM 133 mmol/L (136-145)
[2017-09-02 19:38] LABS: ALKALINE PHOSPHATASE 99 U/L (45-117); TOTAL PROTEIN 6.9 gm/dl (6.4-8.2)
--- NOTE | 2017-09-02 19:51 | EMERGENCY ROOM VISIT NOTE ---
History Report prepared by Karrie: Juancarlos Ivory Under the Supervision of: Dr. Ward Steele M.D. First contact with patient: 17:48 Chief Complaint: VOMITING Stated Complaint: THROWING UP Nursing Triage Summary: Vomiting since last night. Poor appetite today. History of Present Illness The patient is an 87 year old female who presents to the Emergency Room with complaints of intermittent vomiting starting last night. The patient's son states that the patient vomited 3 times last night, and she has been having a lack of appetite today. Additionally, she had a low grade fever which was relieved after having Tylenol. The patient has been more weak for the past week , and she has been needing more assistance. History is limited secondary to dementia. Source of History: family History Limited By: dementia Onset: last night Position: other (global) Quality: other (vomiting) Timing: intermittent Associated Symptoms: + fevers Review of Systems History is limited secondary to dementia. Past Medical & Surgical Medical Problems: (1) Dementia (2) Depression (3) Hypoxia (4) Nausea and vomiting Surgical Problems: (1) History of cataract surgery (2) History of tonsillectomy Family History Noncontributory due to advanced age Social History Smoking Status: Never Smoker Alcohol Use: none Drug Use: none Housing Status: [facility] Occupation Status: retired Current/Historical Medications Scheduled Aspirin (Aspirin Ec), 81 MG PO DAILY Cholecalciferol (Vitamin D3), 2,000 UNITS PO DAILY Donepezil HCl (Aricept), 5 MG PO DAILY Lisinopril (Prinivil), 5 MG PO DAILY Methylcellulose (Laxative) (Citrucel Fiber Laxative), 1 TBS PO QAM Multivitamins/Minerals (Mvi With Minerals), 1 TAB PO DAILY Oxybutynin Chloride (Ditropan), 5 MG PO BID Sennosides-Docusate Sodium (Senna S), 2 TABS PO HS Sertraline (Zoloft), 25 MG PO DAILY Scheduled PRN Acetaminophen (Tylenol), 500-1,000 MG PO Q8H PRN for Pain Bisacodyl (Dulcolax), 1 SUPP WA DAILY PRN for Constipation Magnesium Citrate (Magnesium Citrate), 1 DOSE PO UD PRN for Constipation Ondansetron Hcl (Zofran), 4 MG PO Q4H PRN for Nausea Sodium Phosphates (Fleet Enema Six Pack), 118 ML WA DAILY PRN for Constipation Allergies Coded Allergies: No Known Allergies (Unverified , 09/02/17) Physical Exam Vital Signs Date Time Temp Pulse Resp B/P (MAP) Pulse Ox O2 Delivery O2 Flow Rate FiO2 09/03/17 00:32 98 20 101/63 96 Room Air 2.0 09/02/17 23:14 97 Nasal Cannula 2.0 09/02/17 21:01 96 Nasal Cannula 2.0 09/02/17 21:01 96 Nasal Cannula 2.0 09/02/17 21:00 74 16 132/64 88 Room Air 09/02/17 16:35 36.9 120 17 127/72 96 Room Air Physical Exam GENERAL: Pleasantly demented, no acute distress HENT: Normocephalic, atraumatic. Dry mucous membranes, otherwise oropharynx unremarkable. EYES: Normal conjunctiva. Sclera non-icteric. NECK: Supple. No nuchal rigidity. FROM. No JVD. RESPIRATORY: Scant intermittent wheeze. Otherwise, clear. CARDIAC: Regular rate, normal rhythm. Extremities warm and well perfused. Pulses equal. ABDOMEN: Soft, non-distended. No tenderness to palpation. No rebound or guarding. No masses. RECTAL: Deferred. MUSCULOSKELETAL: Chest examination reveals no tenderness. The back is symmetrical on inspection without obvious abnormality. There is no CVA tenderness to palpation. No joint edema. LOWER EXTREMITIES: Calves are equal size bilaterally and non-tender. No edema. No discoloration. NEURO: Normal sensorium. No sensory or motor deficits noted. SKIN: No rash or jaundice noted. Medical Decision & Procedures ER Provider Diagnostic Interpretation: Radiology results as stated below per my review and radiologist interpretation: SINGLE VIEW CHEST CLINICAL HISTORY: Progressive weakness. FINDINGS: An AP, portable, upright chest radiograph is compared to study dated 05/26/2017. The examination is degraded by portable technique and patient rotation. The heart is top normal for projection and there is atherosclerotic calcification of the thoracic aorta. The pulmonary vasculature is noncongested. Calcified mediastinal and hilar lymph nodes are observed. Chronic interstitial thickening is similar to previous. There are low lung volumes and left basilar atelectasis. No airspace consolidation, large pleural effusion, or pneumothorax is seen. The skeletal structures are osteopenic. Chronic posttraumatic deformity and postoperative change is seen in the left humerus. IMPRESSION: No acute cardiopulmonary abnormality. Electronically signed by: Jimbo Yung M.D. 09/02/2017 7:16 PM Dictated Date/Time: 09/02/2017 7:15 PM ABD/PELVIS IV CONTRAST ONLY CLINICAL HISTORY: 87 years-old Female presenting with vomiting. TECHNIQUE: Multidetector CT of the abdomen and pelvis was performed after the administration of intravenous contrast. IV contrast: 93 mL of Optiray 320. A dose lowering technique was used consistent with the principles of ALARA (as low as reasonably achievable). COMPARISON: 02/07/2017. CT DOSE (mGy.cm): The estimated cumulative dose is 512.95 mGy.cm. FINDINGS: Party Coordinator topogram: Unremarkable. Lung bases: Extensive basilar opacities, likely atelectasis. Calcified right hilar and mediastinal lymphadenopathy noted. Heart top normal in size. Aortic valve calcification. No pericardial or pleural effusion. Liver: Normal morphology. Multiple calcifications likely related to history of chronic granulomatous infection. No focal lesion. Patent hepatic vasculature. Biliary: No intrahepatic or extrahepatic biliary ductal dilatation. Gallbladder contains gallstones. Pancreas: Mild parenchymal atrophy. Spleen: Numerous splenic for internal calcifications also likely relate to chronic granulomatous infection. Adrenal glands: Normal. Kidneys and ureters: Well-defined hypodensity with thin mural calcification at the right lower pole likely minimally complex cyst and grossly unchanged from prior exam, again measuring approximately 2.1 cm. Significant urothelial thickening on the right. No hydronephrosis or nephrolithiasis. Urothelial thickening is new from prior exam. The distal ureters are poorly visualized. Bladder: Normal. Pelvic organs: Mass in the region of the right adnexa is likely ovarian in origin. The right ovary measures 4.5 cm in diameter, which is stable to slightly decreased in size comparison to prior exam. Left ovary normal. No convincing evidence of uterine fibroid. Bowel: Large stool burden in the distended rectum with mild rectal wall thickening and mild mesorectal fat infiltration. Moderate stool burden noted elsewhere in the mildly distended colon. Diverticulosis of the sigmoid colon. Medialization of the cecum. Appendix not visualized. No bowel obstruction. Small hilar hernia suspected. A duodenal diverticula may also be present at the level of the pancreatic head. Peritoneal cavity: No free fluid or intraperitoneal gas. Lymph nodes: No enlarged lymph nodes in the abdomen or pelvis. Vasculature: Atherosclerosis of the normal caliber abdominal aorta. IVC patent. Abdominal wall: Diastasis of the rectus abdominis. Musculoskeletal: Degenerative changes of the spine. IMPRESSION: 1. Large stool burden in the distended rectum with evidence suggesting early stercoral proctitis. No bowel obstruction or other evidence of acute bowel pathology. 2. Interval development of significant urothelial thickening of the right renal collecting system and right ureter. This could indicate upper tract infection. Correlate with urinalysis. Underlying neoplasm is considered less likely given the diffuse appearance. No hydronephrosis. 3. Evidence of chronic granulomatous infection. 4. Abnormally enlarged right ovary for the patient's postmenopausal age. Further evaluation with ultrasound on a nonurgent basis is recommended given the concern for underlying neoplasm. 5. Extensive bibasilar atelectasis. The report will be called/faxed according to standard departmental protocol. Electronically signed by: Socrates Ramos M.D. 09/02/2017 8:23 PM Dictated Date/Time: 09/02/2017 8:14 PM CHEST ONE VIEW PORTABLE CLINICAL HISTORY: 87 years-old Female presenting with hypoxia. TECHNIQUE: Portable upright AP view of the chest was obtained. COMPARISON: 09/02/2017 at 7:01 PM. FINDINGS: Atherosclerosis of the aortic arch. Cardiac silhouette normal in size. Multiple calcified right hilar and mediastinal lymph nodes. Lungs and pleural spaces clear. Plate and screw fixation of the proximal left humerus. Upper abdomen normal. IMPRESSION: 1. No acute cardiopulmonary disease. 2. Evidence of old granulomatous disease. Electronically signed by: Socrates Ramos M.D. 09/02/2017 10:26 PM Dictated Date/Time: 09/02/2017 10:25 PM Laboratory Results Test 09/02/17 18:55 09/02/17 19:11 09/02/17 19:14 09/02/17 19:17 Immature Granulocyte % (Auto) 0.3 % White Blood Count 10.76 K/uL (4.8-10.8) Red Blood Count 4.02 M/uL (4.2-5.4) Hemoglobin 12.3 g/dL (12.0-16.0) Hematocrit 36.0 % (37-47) Mean Corpuscular Volume 89.6 fL (80-100) Mean Corpuscular Hemoglobin 30.6 pg (25-34) Mean Corpuscular Hemoglobin Concent 34.2 g/dl (32-36) Platelet Count 306 K/uL (130-400) Mean Platelet Volume 9.7 fL (7.4-10.4) Neutrophils (%) (Auto) 68.4 % Lymphocytes (%) (Auto) 20.0 % Monocytes (%) (Auto) 9.8 % Eosinophils (%) (Auto) 1.4 % Basophils (%) (Auto) 0.1 % Neutrophils # (Auto) 7.37 K/uL (1.4-6.5) Lymphocytes # (Auto) 2.15 K/uL (1.2-3.4) Monocytes # (Auto) 1.05 K/uL (0.11-0.59) Eosinophils # (Auto) 0.15 K/uL (0-0.5) Basophils # (Auto) 0.01 K/uL (0-0.2) Immature Granulocyte # (Auto) 0.03 K/uL (0.00-0.02) Prothrombin Time 10.7 SECONDS (9.0-12.0) Prothromb Time International Ratio 1.0 (0.9-1.1) Total Bilirubin 0.7 mg/dl (0.2-1) Aspartate Amino Transf (AST/SGOT) 10 U/L (15-37) Alanine Aminotransferase (ALT/SGPT) 23 U/L (12-78) Alkaline Phosphatase 99 U/L (45-117) Total Protein 6.9 gm/dl (6.4-8.2) Albumin 3.0 gm/dl (3.4-5.0) Globulin 3.9 gm/dl (2.5-4.0) Albumin/Globulin Ratio 0.8 (0.9-2) Lipase 129 U/L (73-393) Bedside Lactic Acid Venous 0.86 mmol/L (0.90-1.70) Bedside Troponin I < 0.030 ng/ml (0-0.045) Bedside Hemoglobin 12.2 g/dl (12.0-16.0) Bedside Hematocrit 36 % (37-47) Bedside Sodium 134 mEq/L (135-144) Bedside Potassium 4.1 mEq/L (3.3-5.0) Bedside Chloride 97 mEq/L (101-112) Bedside Total CO2 27 mEq/l (24-31) Bedside Blood Urea Nitrogen 15 mg/dl (7-18) Bedside Creatinine 0.8 mg/dl (0.6-1.3) Bedside Glucose (other) 113 mg/dl (70-99) Bedside Ionized Calcium (Rory) 1.24 mmol/l (1.12-1.32) Test 09/02/17 20:50 Urine Color YELLOW Urine Appearance CLOUDY (CLEAR) Urine pH 7.0 (4.5-7.5) Urine Specific [place] 1.024 (1.000-1.030) Urine Protein 1+ (NEG) Urine Glucose (UA) NEG (NEG) Urine Ketones NEG (NEG) Urine Occult Blood 2+ (NEG) Urine Nitrite POS (NEG) Urine Bilirubin NEG (NEG) Urine Urobilinogen NEG (NEG) Urine Leukocyte Esterase LARGE (NEG) Urine WBC (Auto) >30 /hpf (0-5) Urine RBC (Auto) 10-30 /hpf (0-4) Urine Hyaline Casts (Auto) 0 /lpf (0-5) Urine Epithelial Cells (Auto) 0-5 /lpf (0-5) Urine Bacteria (Auto) 4+ (NEG) Laboratory results reviewed by me Medications Administered Medications (Trade) Dose Ordered Sig/[place] Route Start Time Stop Time Status Last Admin Dose Admin Sodium Chloride 1,000 ml @ 999 mls/hr Q1H1M ONCE IV 09/02/17 18:30 09/02/17 19:30 DC 09/02/17 18:57 999 MLS/HR Ondansetron HCl (Zofran Inj) 4 mg NOW STAT IV 09/02/17 18:28 09/02/17 18:30 DC 09/02/17 18:57 4 MG Miscellaneous (Soap Suds Enema) 1 ea ONE STAT WA 09/02/17 20:51 09/02/17 20:54 DC 09/02/17 21:27 1 EA Albuterol/ Ipratropium (Duoneb) 3 ml ONE STAT INH 09/02/17 22:11 09/02/17 22:13 DC 09/02/17 22:44 3 ML Levofloxacin (Levaquin / D5W) 750 mg NOW ONCE IV 09/03/17 00:00 09/03/17 00:01 DC 09/03/17 00:00 750 MG ECG Indication: vomiting Rate (beats per minute): 72 Rhythm: normal sinus Findings: no acute ischemic change, left axis deviation Change: Patient's electrocardiogram interpreted by me. ED Course 1748: The patient was evaluated in room B4. A complete history and physical exam was performed. 2139: The resident reevaluated the patient, and her oxygen was low and was put on oxygen, and her son states that she is not on oxygen at home. 5: The patient was reevaluated, and she was again satting in the low 90s while snoring. 2340: The patient was reevaluated, and the treatment plan was discussed with her. 0007: I discussed the patient with Dr. Arora - Fernando [place] Hospitalist - She will evaluate the patient for further treatment. Medical Decision I reviewed the patient's past medical history, medications, and the nursing notes as described above. Differential diagnosis: Etiologies such as appendicitis, diverticulitis, PUD, biliary pathology, UTI, pancreatitis, obstruction, mesenteric ischemia, aortic pathology, infections, inflammatory bowel disease, renal colic, as well as others were entertained. The patient is an 87-year-old woman with a past medical history of dementia who presents to the emergency department from her personal long-term for nausea and vomiting which began last night in the setting of generalized weakness evolving over the past week per hpi. On arrival the patient is pleasantly demented, in no acute distress, afebrile stable vital signs. EKG unremarkable without signs of acute ischemia. WBC and lactate within normal limits. UA grossly positive for UTI. CT abdomen and pelvis shows large stool burden with question of early proctitis as well as some urothelial thickening in the right renal collecting system.. Otherwise no acute findings. The patient was given soapsuds enema with good effect and large bowel movement. While the patient has no clinical signs of pyelonephritis given the question CT findings of urothelial thickening will treat with levaquin for UTI/pyelo. Otherwise, during the patient's ED evaluation the patient was noted to be hypoxic to 88% when sleeping. Patient's chest x-ray does comment on some chronic interstitial thickening which could be indicative of mild underlying lung disease, although the patient has no known history of COPD or asthma. Thus patient was given DuoNeb and treated with prednisone and Levaquin will also cover pulmonary source.. Given the patient's apparent new hypoxia will admit the patient for further management. Case was discussed with Dr. Fernando Arora hospitalist, who will admit the patient for further management. I discussed the case with the resident physician, examined the patient, and agree with the findings and plan as documented in the residents note unless otherwise clarified here by me. Medication Reconcilliation Current Medication List: was personally reviewed by me Blood Pressure Screening Patient's blood pressure: Normal blood pressure Consults Time Called: [id number] Consulting Physician: Dr. Ulysses Marroquin Returned Call: [phone] I discussed the patient with Dr. Ulysses Marroquin - She will evaluate the patient for further treatment. Impression Primary Impression: Pyelonephritis Additional Impressions: Urinary tract infection Bronchitis Constipation Scribe Attestation The scribe's documentation has been prepared under my direction and personally reviewed by me in its entirety. I confirm that the note above accurately reflects all work, treatment, procedures, and medical decision making performed by me. Departure Information Dispostion Being Evaluated By Hospitalist Referrals Paulette Perales D.O. (PCP) Patient Instructions My [facility] Problem Qualifiers
--- NOTE | 2017-09-02 20:25 | DIAGNOSTIC IMAGING REPORT ---
ABD/PELVIS IV CONTRAST ONLY CLINICAL HISTORY: 87 years-old Female presenting with vomiting. TECHNIQUE: Multidetector CT of the abdomen and pelvis was performed after the administration of intravenous contrast. IV contrast: 93 mL of Optiray 320. A dose lowering technique was used consistent with the principles of ALARA (as low as reasonably achievable). COMPARISON: 02/07/2017. CT DOSE (mGy.cm): The estimated cumulative dose is 512.95 mGy.cm. FINDINGS: Buttermilk Drier Operator topogram: Unremarkable. Lung bases: Extensive basilar opacities, likely atelectasis. Calcified right hilar and mediastinal lymphadenopathy noted. Heart top normal in size. Aortic valve calcification. No pericardial or pleural effusion. Liver: Normal morphology. Multiple calcifications likely related to history of chronic granulomatous infection. No focal lesion. Patent hepatic vasculature. Biliary: No intrahepatic or extrahepatic biliary ductal dilatation. Gallbladder contains gallstones. Pancreas: Mild parenchymal atrophy. Spleen: Numerous splenic for internal calcifications also likely relate to chronic granulomatous infection. Adrenal glands: Normal. Kidneys and ureters: Well-defined hypodensity with thin mural calcification at the right lower pole likely minimally complex cyst and grossly unchanged from prior exam, again measuring approximately 2.1 cm. Significant urothelial thickening on the right. No hydronephrosis or nephrolithiasis. Urothelial thickening is new from prior exam. The distal ureters are poorly visualized. Bladder: Normal. Pelvic organs: Mass in the region of the right adnexa is likely ovarian in origin. The right ovary measures 4.5 cm in diameter, which is stable to slightly decreased in size comparison to prior exam. Left ovary normal. No convincing evidence of uterine fibroid. Bowel: Large stool burden in the distended rectum with mild rectal wall thickening and mild mesorectal fat infiltration. Moderate stool burden noted elsewhere in the mildly distended colon. Diverticulosis of the sigmoid colon. Medialization of the cecum. Appendix not visualized. No bowel obstruction. Small hilar hernia suspected. A duodenal diverticula may also be present at the level of the pancreatic head. Peritoneal cavity: No free fluid or intraperitoneal gas. Lymph nodes: No enlarged lymph nodes in the abdomen or pelvis. Vasculature: Atherosclerosis of the normal caliber abdominal aorta. IVC patent. Abdominal wall: Diastasis of the rectus abdominis. Musculoskeletal: Degenerative changes of the spine. IMPRESSION: 1. Large stool burden in the distended rectum with evidence suggesting early stercoral proctitis. No bowel obstruction or other evidence of acute bowel pathology. 2. Interval development of significant urothelial thickening of the right renal collecting system and right ureter. This could indicate upper tract infection. Correlate with urinalysis. Underlying neoplasm is considered less likely given the diffuse appearance. No hydronephrosis. 3. Evidence of chronic granulomatous infection. 4. Abnormally enlarged right ovary for the patient's postmenopausal age. Further evaluation with ultrasound on a nonurgent basis is recommended given the concern for underlying neoplasm. 5. Extensive bibasilar atelectasis. The report will be called/faxed according to standard departmental protocol. Electronically signed by: Socrates Ramos M.D. 09/02/2017 8:23 PM Dictated Date/Time: 09/02/2017 8:14 PM
[2017-09-02] MEDS ORDERED: SOAP SUDS ENEMA PR STA (20:51)
[2017-09-02] MEDS ORDERED: ALBUT/IPRATROP 3MG/0.5MG NEB 3 ML VIAL INH STA (22:11)
[2017-09-02] MEDS ORDERED: CIPROFLOXACIN 500 MG TAB PO STA (22:15)
--- NOTE | 2017-09-02 22:28 | DIAGNOSTIC IMAGING REPORT ---
CHEST ONE VIEW PORTABLE CLINICAL HISTORY: 87 years-old Female presenting with hypoxia. TECHNIQUE: Portable upright AP view of the chest was obtained. COMPARISON: 09/02/2017 at 7:01 PM. FINDINGS: Atherosclerosis of the aortic arch. Cardiac silhouette normal in size. Multiple calcified right hilar and mediastinal lymph nodes. Lungs and pleural spaces clear. Plate and screw fixation of the proximal left humerus. Upper abdomen normal. IMPRESSION: 1. No acute cardiopulmonary disease. 2. Evidence of old granulomatous disease. Electronically signed by: Socrates Ramos M.D. 09/02/2017 10:26 PM Dictated Date/Time: 09/02/2017 10:25 PM
[2017-09-02] MEDS ORDERED: LEVOFLOXACIN 750 MG TAB PO STA (23:06)
[2017-09-03] VITALS (12 sets, daily range): BP systolic 107–146; BP diastolic 64–85; PULSE 71–82; TEMP 36.3–37; O2SAT 89–100; Ht 149.9 cm; Wt 61.3 kg
[2017-09-03] MEDS ORDERED: LEVAQUIN 750MG / 150ML D5W IV ONE
[2017-09-03] MEDS ORDERED: ACETAMINOPHEN 325 MG TAB PO PRN (01:30)
[2017-09-03] MEDS ORDERED: ONDANSETRON INJ 2 MG/ML 2 ML VIAL IV PRN (01:30)
[2017-09-03] MEDS ORDERED: BISACODYL 10 MG SUPP PR PRN (01:45)
[2017-09-03] MEDS ORDERED: ONDANSETRON 4 MG TAB PO PRN (01:45)
--- NOTE | 2017-09-03 01:55 | History and Physical ---
History & Physical Date & Time of Service: Sep 03, 2017 at 01:46 Chief Complaint: Throwing Up Primary Care Physician: Paulette Perales D.O. History of Present Illness Source: patient, clinic records, hospital records The patient is an 87 yo dementia patient who was brought in from with persistent nausea and vomiting and intolerance of PO. She was noted to have generalized weakness with progressive need for assistance with transfers and ambulation over the past week. She is currently demented and although alert and without delirium, is unable to give me a history. She was reported to have a temp of 99 last night and was given Tylenol with resolution of the temp. In the ER, she was noted to be hypoxic on room air when sleeping and was noted by nurse to be a mouth breather and 84% on room air. The hypoxia resolved with 2L via nasal canula and she is not in respiratory distress at this time. Workup revealed a UTI and she is on oxybutynin at home. She denies any SOB, cough, fevers, chills, abdominal pain, UTI symptoms, pain but she is an unreliable historian and is also unable to follow instructions limiting the physical exam somewhat. Son is her POA who was not at bedside at the time of this examination. Past Medical/Surgical History Medical Problems: (1) Dementia Status: Chronic (2) Depression Status: Chronic Family History Noncontributory due to advanced age Unable to verify family history 2/2 severe dementia Social History Social history obtained from records; unable to verify with the patient who has severe dementia. Smoking Status: Never Smoker Smokeless Tobacco Use: No Alcohol Use: none Drug Use: none Marital Status: other Housing status: intermediate Occupational Status: retired Immunizations History of Influenza Vaccine: Yes Influenza Vaccine Date: Mar 31, 2016 History of Tetanus Vaccine?: Yes Tetanus Immunization Date: November 24, 2008 History of Pneumococcal: Yes Pneumococcal Date: Apr 23, 2016 History of Hepatitis B Vaccine: No Multi-Drug Resistant Organisms History of MDRO: No Allergies Coded Allergies: No Known Allergies (Unverified , 09/02/17) Home Medications Scheduled Aspirin (Aspirin Ec), 81 MG PO DAILY Cholecalciferol (Vitamin D3), 2,000 UNITS PO DAILY Donepezil HCl (Aricept), 5 MG PO DAILY Lisinopril (Prinivil), 5 MG PO DAILY Methylcellulose (Laxative) (Citrucel Fiber Laxative), 1 TBS PO QAM Multivitamins/Minerals (Mvi With Minerals), 1 TAB PO DAILY Oxybutynin Chloride (Ditropan), 5 MG PO BID Sennosides-Docusate Sodium (Senna S), 2 TABS PO HS Sertraline (Zoloft), 25 MG PO DAILY Scheduled PRN Acetaminophen (Tylenol), 500-1,000 MG PO Q8H PRN for Pain Bisacodyl (Dulcolax), 1 SUPP [place] DAILY PRN for Constipation Magnesium Citrate (Magnesium Citrate), 1 DOSE PO UD PRN for Constipation Ondansetron Hcl (Zofran), 4 MG PO Q4H PRN for Nausea Sodium Phosphates (Fleet Enema Six Pack), 118 ML [place] DAILY PRN for Constipation Review of Systems ROS was unable to be obtained 2/2 patient's level of dementia and impaired memory. Physical Exam Vital Signs Date Time Temp Pulse Resp B/P (MAP) Pulse Ox O2 Delivery O2 Flow Rate FiO2 09/03/17 00:32 98 20 101/63 96 Room Air 2.0 09/02/17 23:14 97 Nasal Cannula 2.0 09/02/17 21:01 96 Nasal Cannula 2.0 09/02/17 21:01 96 Nasal Cannula 2.0 09/02/17 21:00 74 16 132/64 88 Room Air 09/02/17 16:35 36.9 120 17 127/72 96 Room Air General Appearance: no apparent distress, + thin Head: normocephalic, atraumatic Eyes: normal inspection, PERRL, + pertinent finding (mucous membranes moist, dentures. ) ENT: hearing grossly normal, pharynx normal Neck: supple, no adenopathy, trachea midline Respiratory/Chest: chest non-tender, lungs clear (difficult to examine as patient was holding breath and unable to take deep breaths per instructions), normal breath sounds, no respiratory distress, no accessory muscle use Cardiovascular: regular rate, rhythm, no edema, no gallop, no JVD, no murmur Abdomen/GI: normal bowel sounds, non tender, soft Extremities/Musculoskelatal: + pertinent finding (both hands with severe joint disfigurement, moves all extremities with ease. ) Neurologic/Psych: alert, normal mood/affect, + pertinent finding (oriented to self and date only. ) Skin: normal color Diagnostics Laboratory Results 09/03/17 06:25 09/03/17 06:25 Test 09/02/17 18:55 09/02/17 19:11 09/02/17 19:14 09/02/17 19:17 Immature Granulocyte % (Auto) 0.3 % White Blood Count 10.76 K/uL (4.8-10.8) Red Blood Count 4.02 M/uL (4.2-5.4) Hemoglobin 12.3 g/dL (12.0-16.0) Hematocrit 36.0 % (37-47) Mean Corpuscular Volume 89.6 fL (80-100) Mean Corpuscular Hemoglobin 30.6 pg (25-34) Mean Corpuscular Hemoglobin Concent 34.2 g/dl (32-36) Platelet Count 306 K/uL (130-400) Mean Platelet Volume 9.7 fL (7.4-10.4) Neutrophils (%) (Auto) 68.4 % Lymphocytes (%) (Auto) 20.0 % Monocytes (%) (Auto) 9.8 % Eosinophils (%) (Auto) 1.4 % Basophils (%) (Auto) 0.1 % Neutrophils # (Auto) 7.37 K/uL (1.4-6.5) Lymphocytes # (Auto) 2.15 K/uL (1.2-3.4) Monocytes # (Auto) 1.05 K/uL (0.11-0.59) Eosinophils # (Auto) 0.15 K/uL (0-0.5) Basophils # (Auto) 0.01 K/uL (0-0.2) Immature Granulocyte # (Auto) 0.03 K/uL (0.00-0.02) Prothrombin Time 10.7 SECONDS (9.0-12.0) Prothromb Time International Ratio 1.0 (0.9-1.1) Total Bilirubin 0.7 mg/dl (0.2-1) Aspartate Amino Transf (AST/SGOT) 10 U/L (15-37) Alanine Aminotransferase (ALT/SGPT) 23 U/L (12-78) Alkaline Phosphatase 99 U/L (45-117) Total Protein 6.9 gm/dl (6.4-8.2) Albumin 3.0 gm/dl (3.4-5.0) Globulin 3.9 gm/dl (2.5-4.0) Albumin/Globulin Ratio 0.8 (0.9-2) Lipase 129 U/L (73-393) Bedside Lactic Acid Venous 0.86 mmol/L (0.90-1.70) Bedside Troponin I < 0.030 ng/ml (0-0.045) Bedside Hemoglobin 12.2 g/dl (12.0-16.0) Bedside Hematocrit 36 % (37-47) Bedside Sodium 134 mEq/L (135-144) Bedside Potassium 4.1 mEq/L (3.3-5.0) Bedside Chloride 97 mEq/L (101-112) Bedside Total CO2 27 mEq/l (24-31) Bedside Blood Urea Nitrogen 15 mg/dl (7-18) Bedside Creatinine 0.8 mg/dl (0.6-1.3) Bedside Glucose (other) 113 mg/dl (70-99) Bedside Ionized Calcium (Rory) 1.24 mmol/l (1.12-1.32) Test 09/02/17 20:50 09/03/17 06:25 Urine Color YELLOW Urine Appearance CLOUDY (CLEAR) Urine pH 7.0 (4.5-7.5) Urine Specific [place] 1.024 (1.000-1.030) Urine Protein 1+ (NEG) Urine Glucose (UA) NEG (NEG) Urine Ketones NEG (NEG) Urine Occult Blood 2+ (NEG) Urine Nitrite POS (NEG) Urine Bilirubin NEG (NEG) Urine Urobilinogen NEG (NEG) Urine Leukocyte Esterase LARGE (NEG) Urine WBC (Auto) >30 /hpf (0-5) Urine RBC (Auto) 10-30 /hpf (0-4) Urine Hyaline Casts (Auto) 0 /lpf (0-5) Urine Epithelial Cells (Auto) 0-5 /lpf (0-5) Urine Bacteria (Auto) 4+ (NEG) Red Blood Count 3.80 M/uL (4.2-5.4) Mean Corpuscular Volume 90.3 fL (80-100) Mean Corpuscular Hemoglobin 30.3 pg (25-34) Mean Corpuscular Hemoglobin Concent 33.5 g/dl (32-36) RDW Standard Deviation 47.4 fL (36.4-46.3) RDW Coefficient of Variation 14.4 % (11.5-14.5) Mean Platelet Volume 9.7 fL (7.4-10.4) Anion Gap 5.0 mmol/L (3-11) Est Creatinine Clear Calc Drug Dose 34.8 ml/min Estimated GFR () 70.4 Estimated GFR (Non- 60.7 BUN/Creatinine Ratio 15.4 (10-20) Calcium Level 8.8 mg/dl (8.5-10.1) Date/Time Source Procedure Growth Status 09/03/17 02:15 Nasal MRSA DNA Surveillance Screen - Final Specimen Negative for MRSA by DNA Probe Complete 09/02/17 20:50 Urine,Catheterized Urine Culture Pending Received Results Past 24 Hours Test 09/02/17 18:55 09/02/17 19:11 09/02/17 19:14 09/02/17 19:17 Range/Units White Blood Count 10.76 4.8-10.8 K/uL Red Blood Count 4.02 4.2-5.4 M/uL Hemoglobin 12.3 12.0-16.0 g/dL Hematocrit 36.0 37-47 % Mean Corpuscular Volume 89.6 80-100 fL Mean Corpuscular Hemoglobin 30.6 25-34 pg Mean Corpuscular Hemoglobin Concent 34.2 32-36 g/dl Platelet Count 306 130-400 K/uL Mean Platelet Volume 9.7 7.4-10.4 fL Neutrophils (%) (Auto) 68.4 % Lymphocytes (%) (Auto) 20.0 % Monocytes (%) (Auto) 9.8 % Eosinophils (%) (Auto) 1.4 % Basophils (%) (Auto) 0.1 % Neutrophils # (Auto) 7.37 1.4-6.5 K/uL Lymphocytes # (Auto) 2.15 1.2-3.4 K/uL Monocytes # (Auto) 1.05 0.11-0.59 K/uL Eosinophils # (Auto) 0.15 0-0.5 K/uL Basophils # (Auto) 0.01 0-0.2 K/uL RDW Standard Deviation 46.5 36.4-46.3 fL RDW Coefficient of Variation 14.3 11.5-14.5 % Immature Granulocyte % (Auto) 0.3 % Immature Granulocyte # (Auto) 0.03 0.00-0.02 K/uL Sodium Level 133 136-145 mmol/L Potassium Level 4.1 3.5-5.1 mmol/L Chloride Level 99 98-107 mmol/L Carbon Dioxide Level 28 21-32 mmol/L Anion Gap 6.0 16.0 16-25 mmol/L Blood Urea Nitrogen 16 7-18 mg/dl Creatinine 0.83 0.60-1.20 mg/dl Estimated GFR () 72.5 Estimated GFR (Non- 62.5 BUN/Creatinine Ratio 19.4 10-20 Random Glucose 109 70-99 mg/dl Calcium Level 9.3 8.5-10.1 mg/dl Total Bilirubin 0.7 0.2-1 mg/dl Aspartate Amino Transf (AST/SGOT) 10 15-37 U/L Alanine Aminotransferase (ALT/SGPT) 23 12-78 U/L Alkaline Phosphatase 99 45-117 U/L Total Protein 6.9 6.4-8.2 gm/dl Albumin 3.0 3.4-5.0 gm/dl Globulin 3.9 2.5-4.0 gm/dl Albumin/Globulin Ratio 0.8 0.9-2 Lipase 129 73-393 U/L Bedside Lactic Acid Venous 0.86 0.90-1.70 mmol/L Bedside Troponin I < 0.030 0-0.045 ng/ml Bedside Hemoglobin 12.2 12.0-16.0 g/dl Bedside Hematocrit 36 37-47 % Bedside Sodium 134 135-144 mEq/L Bedside Potassium 4.1 3.3-5.0 mEq/L Bedside Chloride 97 101-112 mEq/L Bedside Total CO2 27 24-31 mEq/l Bedside Blood Urea Nitrogen 15 7-18 mg/dl Bedside Creatinine 0.8 0.6-1.3 mg/dl Bedside Glucose (other) 113 70-99 mg/dl Bedside Ionized Calcium (Rory) 1.24 1.12-1.32 mmol/l Test 09/02/17 20:50 Range/Units Urine Color YELLOW Urine Appearance CLOUDY CLEAR Urine pH 7.0 4.5-7.5 Urine Specific [place] 1.024 1.000-1.030 Urine Protein 1+ NEG Urine Glucose (UA) NEG NEG Urine Ketones NEG NEG Urine Occult Blood 2+ NEG Urine Nitrite POS NEG Urine Bilirubin NEG NEG Urine Urobilinogen NEG NEG Urine Leukocyte Esterase LARGE NEG Urine WBC (Auto) >30 0-5 /hpf Urine RBC (Auto) 10-30 0-4 /hpf Urine Hyaline Casts (Auto) 0 0-5 /lpf Urine Epithelial Cells (Auto) 0-5 0-5 /lpf Urine Bacteria (Auto) 4+ NEG Microbiology Results 09/02/17 Urine Culture, Received Pending Diagnostic Radiology CHEST ONE VIEW PORTABLE CLINICAL HISTORY: 87 years-old Female presenting with hypoxia. TECHNIQUE: Portable upright AP view of the chest was obtained. COMPARISON: 09/02/2017 at 7:01 PM. FINDINGS: Atherosclerosis of the aortic arch. Cardiac silhouette normal in size. Multiple calcified right hilar and mediastinal lymph nodes. Lungs and pleural spaces clear. Plate and screw fixation of the proximal left humerus. Upper abdomen normal. IMPRESSION: 1. No acute cardiopulmonary disease. 2. Evidence of old granulomatous disease. ABD/PELVIS IV CONTRAST ONLY CLINICAL HISTORY: 87 years-old Female presenting with vomiting. TECHNIQUE: Multidetector CT of the abdomen and pelvis was performed after the administration of intravenous contrast. IV contrast: 93 mL of Optiray 320. A dose lowering technique was used consistent with the principles of ALARA (as low as reasonably achievable). COMPARISON: 02/07/2017. CT DOSE (mGy.cm): The estimated cumulative dose is 512.95 mGy.cm. FINDINGS: Electric Solderer topogram: Unremarkable. Lung bases: Extensive basilar opacities, likely atelectasis. Calcified right hilar and mediastinal lymphadenopathy noted. Heart top normal in size. Aortic valve calcification. No pericardial or pleural effusion. Liver: Normal morphology. Multiple calcifications likely related to history of chronic granulomatous infection. No focal lesion. Patent hepatic vasculature. Biliary: No intrahepatic or extrahepatic biliary ductal dilatation. Gallbladder contains gallstones. Pancreas: Mild parenchymal atrophy. Spleen: Numerous splenic for internal calcifications also likely relate to chronic granulomatous infection. Adrenal glands: Normal. Kidneys and ureters: Well-defined hypodensity with thin mural calcification at the right lower pole likely minimally complex cyst and grossly unchanged from prior exam, again measuring approximately 2.1 cm. Significant urothelial thickening on the right. No hydronephrosis or nephrolithiasis. Urothelial thickening is new from prior exam. The distal ureters are poorly visualized. Bladder: Normal. Pelvic organs: Mass in the region of the right adnexa is likely ovarian in origin. The right ovary measures 4.5 cm in diameter, which is stable to slightly decreased in size comparison to prior exam. Left ovary normal. No convincing evidence of uterine fibroid. Bowel: Large stool burden in the distended rectum with mild rectal wall thickening and mild mesorectal fat infiltration. Moderate stool burden noted elsewhere in the mildly distended colon. Diverticulosis of the sigmoid colon. Medialization of the cecum. Appendix not visualized. No bowel obstruction. Small hilar hernia suspected. A duodenal diverticula may also be present at the level of the pancreatic head. Peritoneal cavity: No free fluid or intraperitoneal gas. Lymph nodes: No enlarged lymph nodes in the abdomen or pelvis. Vasculature: Atherosclerosis of the normal caliber abdominal aorta. IVC patent. Abdominal wall: Diastasis of the rectus abdominis. Musculoskeletal: Degenerative changes of the spine. IMPRESSION: 1. Large stool burden in the distended rectum with evidence suggesting early stercoral proctitis. No bowel obstruction or other evidence of acute bowel pathology. 2. Interval development of significant urothelial thickening of the right renal collecting system and right ureter. This could indicate upper tract infection. Correlate with urinalysis. Underlying neoplasm is considered less likely given the diffuse appearance. No hydronephrosis. 3. Evidence of chronic granulomatous infection. 4. Abnormally enlarged right ovary for the patient's postmenopausal age. Further evaluation with ultrasound on a nonurgent basis is recommended given the concern for underlying neoplasm. 5. Extensive bibasilar atelectasis. SINGLE VIEW CHEST CLINICAL HISTORY: Progressive weakness. FINDINGS: An AP, portable, upright chest radiograph is compared to study dated 05/26/2017. The examination is degraded by portable technique and patient rotation. The heart is top normal for projection and there is atherosclerotic calcification of the thoracic aorta. The pulmonary vasculature is noncongested. Calcified mediastinal and hilar lymph nodes are observed. Chronic interstitial thickening is similar to previous. There are low lung volumes and left basilar atelectasis. No airspace consolidation, large pleural effusion, or pneumothorax is seen. The skeletal structures are osteopenic. Chronic posttraumatic deformity and postoperative change is seen in the left humerus. IMPRESSION: No acute cardiopulmonary abnormality. EKG SR 72 Impression Assessment and Plan 87 yo Alzheimer's dementia patient presents with one week of weakness, and persistent nausea and vomiting intolerant to PO. 1. Nausea and vomiting- likely 2/2 fecal impaction with other options including but not limited to adverse side effect from medications vs gastritis- CT revealed fecal impaction with no evidence of obstruction. Nausea is currently controlled with enema-trial of food in the morning. Zofran PRN. 2. Acute pyelonephritis-Levaquin given to cover for any bronchitis? and UTI empirically, culture is pending. Pt not septic 3. Hypoxia-mouth breather, xray consistent with ILD changes, prednisone given in ER for poss flare, however, pt is not in distress and there are no reports of URI symptoms such as cough or SOB from nursing staff at home. Flu swab pending. Levaquin given to cover poss pulmonary infection. Denies cough or other resp symptoms but is unreliable historian. She does not appear ill from a respiratory standpoint and CXR is clear. Would hold off on further Levaquin ( she is getting some coverage with the Rocephin) and no more prednisone at this time unless hypoxia does not resolve. If ILD flare suspected, would also consider consulting pulmonary. 4. Constipation-scheduled Miralax and stool softeners, ambulate early. Had large BM as above. 5. Dementia-end stage, lives in a home. 6. Weakness likely 2/2 pyelo -PT/OT DVT proph-Lovenox Full code-will need to confirm with son in am Dispo-telemetry with new hypoxia Shy Arora DO [facility] VTE Prophylaxis VTE Risk Assessment Done? Y/N: Yes Risk Level: Moderate Given or contraindicated: Enoxaparin (Lovenox)SQ
[2017-09-03] MEDS ORDERED: PATIENT'S HEIGHT AND/OR WEIGHT NEEDED SCH (02:30)
[2017-09-03 06:36] LABS: HEMATOCRIT 34.3 % (37-47); HEMOGLOBIN 11.5 g/dL (12.0-16.0); MEAN CELL VOLUME 90.3 fL (80-100); MEAN CORPUSCULAR HEMOGLOBIN 30.3 pg (25-34); MEAN CORPUSCULAR HGB CONC 33.5 g/dl (32-36); MEAN PLATELET VOLUME 9.7 fL (7.4-10.4); PLATELET COUNT 272 K/uL (130-400); RED CELL DISTRIBUTION WIDTH CV 14.4 % (11.5-14.5); RED CELL DISTRIBUTION WIDTH SD 47.4 fL (36.4-46.3); WHITE BLOOD COUNT 8.37 K/uL (4.8-10.8)
[2017-09-03 06:56] LABS: CALCIUM 8.8 mg/dl (8.5-10.1); CREATININE 0.85 mg/dl (0.60-1.20); POTASSIUM 4.2 mmol/L (3.5-5.1)
[2017-09-03] MEDS: POLYETHYLENE (MIRALAX) 17 GM PACK PO SCH (08:04)
[2017-09-03] MEDS: DONEPEZIL HCL 5 MG TAB PO SCH (08:05)
[2017-09-03] MEDS: SERTRALINE HCL 50 MG TAB PO SCH (08:05)
[2017-09-03] MEDS: CEROVITE ADV FORMULA TAB PO SCH (08:05)
[2017-09-03] MEDS: LISINOPRIL 5 MG TAB PO SCH (08:05)
[2017-09-03] MEDS: CHOLECALCIFEROL 1000 INTER.UNIT TAB PO SCH (08:06)
[2017-09-03] MEDS: ENOXAPARIN 40 MG/0.4 ML SYR SC SCH (08:06)
[2017-09-03] MEDS: CEFTRIAXONE SOD INJ 1 GM in DEXTROSE 5% ADD-VANTAGE 50ML 50 ML IV SCH (08:45)
[2017-09-03 11:43] LABS: INFLUENZA A PCR Neg for Influ A (NEG); INFLUENZA B PCR Neg for Influ B (NEG)
--- NOTE | 2017-09-03 17:48 | Progress Note ---
Internal Med Progress Note Date of Service: Sep 03, 2017. Provider Documentation: SUBJECTIVE: The patient was seen and examined Feels better since admission OBJECTIVE: Vital Signs-as noted below Exam: General-No distress at rest Eyes-Normal ENT-normal Neck-Supple Lungs-Clear to ausucltate bilaterally Heart-Regular Abdomen-Benign,no masses,bowel sound present Extremities-No edema Neuro-AAO Lab data as noted below. ASSESSMENT & PLAN: 87 yo Alzheimer's dementia patient presents with one week of weakness, and persistent nausea and vomiting intolerant to PO. Acute pyelonephritis Levaquin was given to cover for any bronchitis Changed to Ceftriaxone Urine culture-Gm Negative Bacilli Await Sensitivity Nausea and vomiting- Likely due to UTI May be 2/2 fecal impaction Other options including but not limited to adverse side effect from medications vs gastritis-CT revealed fecal impaction with no evidence of obstruction. Clinically better this AM Getting Symptomatic medications Hypoxia-mouth breather, Xray consistent with ILD changes, prednisone given in ER for poss flare, however , Flu negative Received 1 dose of Levaquin Constipation-scheduled Miralax and stool softeners, ambulate early. Had large BM as above. Dementia-end stage, lives in a home No acute Delirium Weakness likely 2/2 pyelo -PT/OT DVT proph-Lovenox Full code-will need to confirm with son in am Dispo-telemetry with new hypoxia Vital Signs: Date Time Temp Pulse Resp B/P (MAP) Pulse Ox O2 Delivery O2 Flow Rate FiO2 09/03/17 15:03 36.7 75 16 107/64 (78) 96 2.0 09/03/17 12:08 36.6 71 16 107/70 (82) 94 09/03/17 12:00 94 Nasal Cannula 2.0 09/03/17 08:15 36.5 73 16 128/74 (92) 95 Room Air 09/03/17 08:00 100 Nasal Cannula 2.0 09/03/17 07:53 36.3 75 16 138/85 (102) 99 Nasal Cannula 2.0 09/03/17 04:00 Nasal Cannula 2.0 09/03/17 04:00 93 Nasal Cannula 2.0 09/03/17 02:26 37.0 82 18 114/67 89 Room Air 09/03/17 00:32 98 20 101/63 96 Room Air 2.0 09/02/17 23:14 97 Nasal Cannula 2.0 09/02/17 21:01 96 Nasal Cannula 2.0 09/02/17 21:01 96 Nasal Cannula 2.0 09/02/17 21:00 74 16 132/64 88 Room Air Lab Results: Results Past 24 Hours Test 09/02/17 18:55 09/02/17 19:11 09/02/17 19:14 09/02/17 19:17 Range/Units White Blood Count 10.76 4.8-10.8 K/uL Red Blood Count 4.02 4.2-5.4 M/uL Hemoglobin 12.3 12.0-16.0 g/dL Hematocrit 36.0 37-47 % Mean Corpuscular Volume 89.6 80-100 fL Mean Corpuscular Hemoglobin 30.6 25-34 pg Mean Corpuscular Hemoglobin Concent 34.2 32-36 g/dl Platelet Count 306 130-400 K/uL Mean Platelet Volume 9.7 7.4-10.4 fL Neutrophils (%) (Auto) 68.4 % Lymphocytes (%) (Auto) 20.0 % Monocytes (%) (Auto) 9.8 % Eosinophils (%) (Auto) 1.4 % Basophils (%) (Auto) 0.1 % Neutrophils # (Auto) 7.37 1.4-6.5 K/uL Lymphocytes # (Auto) 2.15 1.2-3.4 K/uL Monocytes # (Auto) 1.05 0.11-0.59 K/uL Eosinophils # (Auto) 0.15 0-0.5 K/uL Basophils # (Auto) 0.01 0-0.2 K/uL RDW Standard Deviation 46.5 36.4-46.3 fL RDW Coefficient of Variation 14.3 11.5-14.5 % Immature Granulocyte % (Auto) 0.3 % Immature Granulocyte # (Auto) 0.03 0.00-0.02 K/uL Prothrombin Time 10.7 9.0-12.0 SECONDS Prothromb Time International Ratio 1.0 0.9-1.1 Sodium Level 133 136-145 mmol/L Potassium Level 4.1 3.5-5.1 mmol/L Chloride Level 99 98-107 mmol/L Carbon Dioxide Level 28 21-32 mmol/L Anion Gap 6.0 16.0 16-25 mmol/L Blood Urea Nitrogen 16 7-18 mg/dl Creatinine 0.83 0.60-1.20 mg/dl Estimated GFR () 72.5 Estimated GFR (Non- 62.5 BUN/Creatinine Ratio 19.4 10-20 Random Glucose 109 70-99 mg/dl Calcium Level 9.3 8.5-10.1 mg/dl Total Bilirubin 0.7 0.2-1 mg/dl Aspartate Amino Transf (AST/SGOT) 10 15-37 U/L Alanine Aminotransferase (ALT/SGPT) 23 12-78 U/L Alkaline Phosphatase 99 45-117 U/L Total Protein 6.9 6.4-8.2 gm/dl Albumin 3.0 3.4-5.0 gm/dl Globulin 3.9 2.5-4.0 gm/dl Albumin/Globulin Ratio 0.8 0.9-2 Lipase 129 73-393 U/L Bedside Lactic Acid Venous 0.86 0.90-1.70 mmol/L Bedside Troponin I < 0.030 0-0.045 ng/ml Bedside Hemoglobin 12.2 12.0-16.0 g/dl Bedside Hematocrit 36 37-47 % Bedside Sodium 134 135-144 mEq/L Bedside Potassium 4.1 3.3-5.0 mEq/L Bedside Chloride 97 101-112 mEq/L Bedside Total CO2 27 24-31 mEq/l Bedside Blood Urea Nitrogen 15 7-18 mg/dl Bedside Creatinine 0.8 0.6-1.3 mg/dl Bedside Glucose (other) 113 70-99 mg/dl Bedside Ionized Calcium (Rory) 1.24 1.12-1.32 mmol/l Test 09/02/17 20:50 09/03/17 06:25 09/03/17 10:34 Range/Units Urine Color YELLOW Urine Appearance CLOUDY CLEAR Urine pH 7.0 4.5-7.5 Urine Specific [place] 1.024 1.000-1.030 Urine Protein 1+ NEG Urine Glucose (UA) NEG NEG Urine Ketones NEG NEG Urine Occult Blood 2+ NEG Urine Nitrite POS NEG Urine Bilirubin NEG NEG Urine Urobilinogen NEG NEG Urine Leukocyte Esterase LARGE NEG Urine WBC (Auto) >30 0-5 /hpf Urine RBC (Auto) 10-30 0-4 /hpf Urine Hyaline Casts (Auto) 0 0-5 /lpf Urine Epithelial Cells (Auto) 0-5 0-5 /lpf Urine Bacteria (Auto) 4+ NEG White Blood Count 8.37 4.8-10.8 K/uL Red Blood Count 3.80 4.2-5.4 M/uL Hemoglobin 11.5 12.0-16.0 g/dL Hematocrit 34.3 37-47 % Mean Corpuscular Volume 90.3 80-100 fL Mean Corpuscular Hemoglobin 30.3 25-34 pg Mean Corpuscular Hemoglobin Concent 33.5 32-36 g/dl RDW Standard Deviation 47.4 36.4-46.3 fL RDW Coefficient of Variation 14.4 11.5-14.5 % Platelet Count 272 130-400 K/uL Mean Platelet Volume 9.7 7.4-10.4 fL Sodium Level 135 136-145 mmol/L Potassium Level 4.2 3.5-5.1 mmol/L Chloride Level 102 98-107 mmol/L Carbon Dioxide Level 28 21-32 mmol/L Anion Gap 5.0 3-11 mmol/L Blood Urea Nitrogen 13 7-18 mg/dl Creatinine 0.85 0.60-1.20 mg/dl Est Creatinine Clear Calc Drug Dose 34.8 ml/min Estimated GFR () 70.4 Estimated GFR (Non- 60.7 BUN/Creatinine Ratio 15.4 10-20 Random Glucose 95 70-99 mg/dl Calcium Level 8.8 8.5-10.1 mg/dl Influenza Type A (RT-PCR) Neg for Influ A NEG Influenza Type B (RT-PCR) Neg for Influ B NEG Microbiology Results 09/03/17 MRSA DNA Surveillance Screen - Final, Complete Specimen Negative for MRSA by DNA Probe 09/02/17 Urine Culture - Preliminary, Resulted Gram Negative Bacilli
[2017-09-03] MEDS: DOCUSATE SODIUM/SENNA 50/8.6MG TAB PO SCH (21:18)
[2017-09-04 03:35] VITALS: BP_SYST 121; BP_SYST 148; BP_DIAS 67; BP_DIAS 70; PULSE 77; PULSE 80; TEMP 36.6; TEMP 36.8; O2SAT 94; O2SAT 97
[2017-09-04 07:45] VITALS: BP 150/77; PULSE 73; TEMP 36.4; O2SAT 96
[2017-09-04] MEDS: LISINOPRIL 5 MG TAB PO SCH (08:42)
[2017-09-04] MEDS: ENOXAPARIN 40 MG/0.4 ML SYR SC SCH (08:42)
[2017-09-04] MEDS: POLYETHYLENE (MIRALAX) 17 GM PACK PO SCH (08:42)
[2017-09-04] MEDS: CEFTRIAXONE SOD INJ 1 GM in DEXTROSE 5% ADD-VANTAGE 50ML 50 ML IV SCH (08:43)
[2017-09-04] MEDS: CHOLECALCIFEROL 1000 INTER.UNIT TAB PO SCH (08:43)
[2017-09-04] MEDS: DONEPEZIL HCL 5 MG TAB PO SCH (08:43)
[2017-09-04] MEDS: CEROVITE ADV FORMULA TAB PO SCH (08:43)
[2017-09-04] MEDS: SERTRALINE HCL 50 MG TAB PO SCH (08:43)
[2017-09-04 12:22] VITALS: BP 120/72; PULSE 71; TEMP 36.4; O2SAT 94
--- NOTE | 2017-09-04 14:24 | Progress Note ---
Internal Med Progress Note Date of Service: Sep 04, 2017. Provider Documentation: SUBJECTIVE: The patient was seen and examined Feels better since admission Seen in presence of te Daughter Questions answered OBJECTIVE: Vital Signs-as noted below Exam: General-No distress at rest Eyes-Normal ENT-normal Neck-Supple Lungs-Clear to ausucltate bilaterally Heart-Regular Abdomen-Benign,no masses,bowel sound present Extremities-No edema Neuro-AAO Pleasantly confused Lab data as noted below. ASSESSMENT & PLAN: 87 yo Alzheimer's dementia patient presents with one week of weakness, and persistent nausea and vomiting intolerant to PO. Acute pyelonephritis Levaquin was given to cover for any bronchitis Changed to Ceftriaxone Urine culture-Gm Negative Bacilli Await Sensitivity-pansensitive Will try oral Keflex on discharge Nausea and vomiting- Likely due to UTI May be 2/2 fecal impaction Other options including but not limited to adverse side effect from medications vs gastritis-CT revealed fecal impaction with no evidence of obstruction. Clinically better this AM Getting Symptomatic medications Hypoxia-mouth breather, Xray consistent with ILD changes, prednisone given in ER for poss flare, however , Flu negative Received 1 dose of Levaquin Clinically better and does not require any Oxygen Constipation-scheduled Miralax and stool softeners, ambulate early. Had large BM as above. Dementia-end stage, lives in a home No acute Delirium Weakness likely 2/2 pyelo -PT/OT DVT proph-Lovenox Full code-will need to confirm with son in am D/C Tele Vital Signs: Date Time Temp Pulse Resp B/P (MAP) Pulse Ox O2 Delivery O2 Flow Rate FiO2 09/04/17 12:22 36.4 71 16 120/72 (88) 94 09/04/17 12:00 Nasal Cannula 2.0 09/04/17 08:00 Nasal Cannula 2.0 09/04/17 07:45 36.4 73 16 150/77 (101) 96 09/04/17 04:00 Nasal Cannula 2.0 09/04/17 03:35 36.6 80 20 148/70 (96) 94 Room Air 09/04/17 00:00 Nasal Cannula 2.0 09/03/17 23:50 36.8 71 18 131/70 (90) 94 Room Air 09/03/17 20:00 96 Nasal Cannula 2.0 09/03/17 19:53 36.8 75 20 146/69 (94) 98 Nasal Cannula 2.0 09/03/17 16:00 96 Nasal Cannula 2.0 09/03/17 15:03 36.7 75 16 107/64 (78) 96 2.0
[2017-09-04 15:53] VITALS: BP 133/77; PULSE 73; TEMP 37; O2SAT 93
[2017-09-04 15:54] VITALS: O2SAT 94
[2017-09-04 19:38] VITALS: BP 153/67; PULSE 77; TEMP 36.8; O2SAT 94
[2017-09-04] MEDS: DOCUSATE SODIUM/SENNA 50/8.6MG TAB PO SCH (21:21)
[2017-09-05] VITALS (8 sets, daily range): BP systolic 132–164; BP diastolic 57–89; PULSE 67–86; TEMP 36.4–37.2; O2SAT 93–97
[2017-09-05 06:35] LABS: HEMATOCRIT 36.7 % (37-47); HEMOGLOBIN 12.2 g/dL (12.0-16.0); MEAN CELL VOLUME 90.4 fL (80-100); MEAN CORPUSCULAR HGB CONC 33.2 g/dl (32-36); MEAN PLATELET VOLUME 10.3 fL (7.4-10.4); PLATELET COUNT 322 K/uL (130-400); RED CELL DISTRIBUTION WIDTH SD 45.9 fL (36.4-46.3); WHITE BLOOD COUNT 5.38 K/uL (4.8-10.8)
[2017-09-05 07:06] LABS: CREATININE 0.82 mg/dl (0.60-1.20)
[2017-09-05] MEDS: CEFTRIAXONE SOD INJ 1 GM in DEXTROSE 5% ADD-VANTAGE 50ML 50 ML IV SCH (08:38)
[2017-09-05] MEDS: POLYETHYLENE (MIRALAX) 17 GM PACK PO SCH (08:39)
[2017-09-05] MEDS: ENOXAPARIN 40 MG/0.4 ML SYR SC SCH (08:39)
[2017-09-05] MEDS: LISINOPRIL 5 MG TAB PO SCH (08:39)
[2017-09-05] MEDS: SERTRALINE HCL 50 MG TAB PO SCH (08:40)
[2017-09-05] MEDS: CHOLECALCIFEROL 1000 INTER.UNIT TAB PO SCH (08:58)
[2017-09-05] MEDS: DONEPEZIL HCL 5 MG TAB PO SCH (08:58)
[2017-09-05] MEDS: CEROVITE ADV FORMULA TAB PO SCH (08:58)
--- NOTE | 2017-09-05 12:26 | Progress Note ---
Internal Med Progress Note Date of Service: Sep 05, 2017. Provider Documentation: SUBJECTIVE: The patient was seen and examined Feels better since admission Seen in presence of te Daughter Questions answered The patient remains stable Denies any symptoms OBJECTIVE: Vital Signs-as noted below Exam: General-No distress at rest Eyes-Normal ENT-normal Neck-Supple Lungs-Clear to ausucltate bilaterally Heart-Regular Abdomen-Benign,no masses,bowel sound present No tenderness in hypogastrium Extremities-No edema Neuro-AA Pleasantly confused Lab data as noted below. ASSESSMENT & PLAN: 87 yo Alzheimer's dementia patient presents with one week of weakness, and persistent nausea and vomiting intolerant to PO. Acute pyelonephritis Levaquin was given to cover for any bronchitis Changed to Ceftriaxone Urine culture-Gm Negative Bacilli Await Sensitivity-pansensitive Will try oral Keflex on discharge No acute delirium Nausea and vomiting- Likely due to UTI May be 2/2 fecal impaction Other options including but not limited to adverse side effect from medications vs gastritis-CT revealed fecal impaction with no evidence of obstruction. Clinically better this AM Getting Symptomatic medications Resolved Hypoxia-mouth breather, Xray consistent with ILD changes, prednisone given in ER for poss flare, however , Flu negative Received 1 dose of Levaquin Clinically better and does not require any Oxygen Check CXR in AM Constipation-scheduled Miralax and stool softeners, ambulate early. Had large BM as above. Dementia-end stage, lives in a home No acute Delirium Weakness likely 2/2 pyelo -PT/OT DVT proph-Lovenox Full code-will need to confirm with son in am Likely to be discharged tomorrow Vital Signs: Date Time Temp Pulse Resp B/P (MAP) Pulse Ox O2 Delivery O2 Flow Rate FiO2 09/05/17 12:00 Room Air 09/05/17 11:10 36.8 86 16 143/82 (102) 94 09/05/17 08:38 74 159/77 (104) 09/05/17 08:00 Room Air 09/05/17 07:52 36.4 71 16 132/64 (86) 96 09/05/17 05:24 36.8 84 17 151/83 (105) 95 Room Air 09/05/17 03:59 Room Air 09/05/17 00:43 36.7 67 18 146/57 (86) 97 Room Air 09/04/17 23:15 Room Air 09/04/17 19:58 Room Air 09/04/17 19:38 36.8 77 16 153/67 (95) 94 Room Air 09/04/17 15:54 94 Nasal Cannula 09/04/17 15:53 37.0 73 16 133/77 (95) 93 Room Air Lab Results: Results Past 24 Hours Test 09/05/17 05:58 Range/Units White Blood Count 5.38 4.8-10.8 K/uL Red Blood Count 4.06 4.2-5.4 M/uL Hemoglobin 12.2 12.0-16.0 g/dL Hematocrit 36.7 37-47 % Mean Corpuscular Volume 90.4 80-100 fL Mean Corpuscular Hemoglobin 30.0 25-34 pg Mean Corpuscular Hemoglobin Concent 33.2 32-36 g/dl RDW Standard Deviation 45.9 36.4-46.3 fL RDW Coefficient of Variation 14.0 11.5-14.5 % Platelet Count 322 130-400 K/uL Mean Platelet Volume 10.3 7.4-10.4 fL Sodium Level 138 136-145 mmol/L Potassium Level 4.0 3.5-5.1 mmol/L Chloride Level 101 98-107 mmol/L Carbon Dioxide Level 29 21-32 mmol/L Anion Gap 8.0 3-11 mmol/L Blood Urea Nitrogen 12 7-18 mg/dl Creatinine 0.82 0.60-1.20 mg/dl Est Creatinine Clear Calc Drug Dose 36.8 ml/min Estimated GFR () 73.5 Estimated GFR (Non- 63.4 BUN/Creatinine Ratio 14.1 10-20 Random Glucose 85 70-99 mg/dl Calcium Level 9.0 8.5-10.1 mg/dl Phosphorus Level 3.0 2.5-4.9 mg/dl Magnesium Level 2.0 1.8-2.4 mg/dl
[2017-09-05] MEDS: DOCUSATE SODIUM/SENNA 50/8.6MG TAB PO SCH (20:23)
[2017-09-06 03:34] VITALS: BP 138/83; PULSE 68; TEMP 36.9; O2SAT 96
[2017-09-06 06:48] VITALS: BP 145/78; PULSE 57; TEMP 36.5; O2SAT 96
[2017-09-06] MEDS: CHOLECALCIFEROL 1000 INTER.UNIT TAB PO SCH (08:12)
[2017-09-06] MEDS: SERTRALINE HCL 50 MG TAB PO SCH (08:13)
[2017-09-06] MEDS: POLYETHYLENE (MIRALAX) 17 GM PACK PO SCH (08:13)
[2017-09-06] MEDS: CEROVITE ADV FORMULA TAB PO SCH (08:13)
[2017-09-06] MEDS: DONEPEZIL HCL 5 MG TAB PO SCH (08:13)
[2017-09-06] MEDS: DOCUSATE SODIUM/SENNA 50/8.6MG TAB PO SCH (08:13)
[2017-09-06] MEDS: CEFTRIAXONE SOD INJ 1 GM in DEXTROSE 5% ADD-VANTAGE 50ML 50 ML IV SCH (08:14)
[2017-09-06] MEDS: LISINOPRIL 5 MG TAB PO SCH (08:14)
[2017-09-06] MEDS: ENOXAPARIN 40 MG/0.4 ML SYR SC SCH (08:15)
[2017-09-06] MEDS ORDERED: BISACODYL 10 MG SUPP PR ONE (09:45)
[2017-09-06 11:00] VITALS: BP 134/76; PULSE 66; TEMP 36.7; O2SAT 95
[2017-09-06] MEDS ORDERED: NURSING VERBAL MED ORDER ONE (13:15)
[2017-09-06] MEDS ORDERED: SOD PHOSPHATE/SOD BIPHOSPHATE ENEMA 132 ML BTL PR ONE (13:30)
[2017-09-06 14:50] VITALS: BP 116/73; PULSE 89; TEMP 37.2; O2SAT 94
[2017-09-06 16:00] VITALS: O2SAT 94
--- NOTE | 2017-09-06 16:10 | Progress Note ---
Internal Med Progress Note Date of Service: Sep 06, 2017. Provider Documentation: SUBJECTIVE: The patient was seen and examined Feels better since admission Seen in presence of te Daughter Questions answered The patient remains stable Denies any symptoms Bowel not moved-will try suppository and Enema OBJECTIVE: Vital Signs-as noted below Exam: General-No distress at rest Eyes-Normal ENT-normal Neck-Supple Lungs-Clear to ausucltate bilaterally Heart-Regular Abdomen-Benign,no masses,bowel sound present No tenderness in hypogastrium Extremities-No edema Neuro-AA Pleasantly confused Lab data as noted below. ASSESSMENT & PLAN: 87 yo Alzheimer's dementia patient presents with one week of weakness, and persistent nausea and vomiting intolerant to PO. Constipation Bowel not moved Will try Dulcolax Suppository and Enema If no benefit will get KUB More MOM today Acute pyelonephritis Levaquin was given to cover for any bronchitis Changed to Ceftriaxone Urine culture-Gm Negative Bacilli Await Sensitivity-pansensitive Will try oral Keflex on discharge No acute delirium Clinically stable Nausea and vomiting- Likely due to UTI May be 2/2 fecal impaction Other options including but not limited to adverse side effect from medications vs gastritis-CT revealed fecal impaction with no evidence of obstruction. Clinically better this AM Getting Symptomatic medications Resolved Hypoxia-mouth breather, Xray consistent with ILD changes, prednisone given in ER for poss flare, however , Flu negative Received 1 dose of Levaquin Clinically better and does not require any Oxygen Check CXR in AM Constipation-scheduled Miralax and stool softeners, ambulate early. Had large BM as above. Dementia-end stage, lives in a home No acute Delirium Weakness likely 2/2 pyelo -PT/OT DVT proph-Lovenox Full code-will need to confirm with son in am Likely to be discharged in a day or two. Vital Signs: Date Time Temp Pulse Resp B/P (MAP) Pulse Ox O2 Delivery O2 Flow Rate FiO2 09/06/17 14:50 37.2 89 20 116/73 (87) 94 09/06/17 12:00 Room Air 09/06/17 11:00 36.7 66 20 134/76 (95) 95 09/06/17 08:00 Room Air 09/06/17 06:48 36.5 57 18 145/78 (100) 96 Room Air 09/06/17 04:00 Room Air 09/06/17 03:34 36.9 68 18 138/83 (101) 96 Room Air 09/06/17 00:00 Room Air 09/05/17 23:38 36.6 73 18 142/87 (105) 93 Room Air 09/05/17 20:15 37.2 18 164/89 (114) 94 Room Air 09/05/17 20:00 Room Air
[2017-09-06] MEDS ORDERED: MAGNESIUM HYDROXIDE SUSP 30 ML UDC PO ONE (16:15)
[2017-09-06 23:13] VITALS: BP 128/77; PULSE 89; TEMP 36.7; O2SAT 91
[2017-09-07 07:06] VITALS: BP 115/71; PULSE 77; TEMP 36.7; O2SAT 92
[2017-09-07 08:16] VITALS: BP 115/71; PULSE 77; TEMP 36.7; O2SAT 92
[2017-09-07 08:20] VITALS: O2SAT 92
[2017-09-07] MEDS: CEFTRIAXONE SOD INJ 1 GM in DEXTROSE 5% ADD-VANTAGE 50ML 50 ML IV SCH (09:38)
[2017-09-07] MEDS: CHOLECALCIFEROL 1000 INTER.UNIT TAB PO SCH (09:38)
[2017-09-07] MEDS: SERTRALINE HCL 50 MG TAB PO SCH (09:39)
[2017-09-07] MEDS: DONEPEZIL HCL 5 MG TAB PO SCH (09:39)
[2017-09-07] MEDS: CEROVITE ADV FORMULA TAB PO SCH (09:40)
[2017-09-07] MEDS: POLYETHYLENE (MIRALAX) 17 GM PACK PO SCH (09:41)
[2017-09-07] MEDS: ENOXAPARIN 40 MG/0.4 ML SYR SC SCH (09:43)
[2017-09-07] MEDS: LISINOPRIL 5 MG TAB PO SCH (10:01)
[2017-09-07 11:52] VITALS: BP 108/71; PULSE 102; TEMP 36.4; O2SAT 94
[2017-09-07 15:19] VITALS: BP 111/71; PULSE 80; TEMP 36.4; O2SAT 93
--- NOTE | 2017-09-07 16:19 | Progress Note ---
Internal Med Progress Note Date of Service: Sep 07, 2017. Provider Documentation: SUBJECTIVE: The patient was seen and examined Feels better since admission Seen in presence of te Daughter Questions answered The patient remains stable Denies any symptoms Bowel moved 2 times yesterday and 2 times today Remains stable OBJECTIVE: Vital Signs-as noted below Exam: General-No distress at rest Eyes-Normal ENT-normal Neck-Supple Lungs-Clear to ausucltate bilaterally Heart-Regular Abdomen-Benign,no masses,bowel sound present No tenderness in hypogastrium Extremities-No edema Neuro-AA Pleasantly confused Lab data as noted below. ASSESSMENT & PLAN: 87 yo Alzheimer's dementia patient presents with one week of weakness, and persistent nausea and vomiting intolerant to PO. Constipation Bowel not moved Will try Dulcolax Suppository and Enema If no benefit will get KUB More MOM today Bowel moved No Nausea and or vomiting Acute pyelonephritis Levaquin was given to cover for any bronchitis Changed to Ceftriaxone Urine culture-Gm Negative Bacilli Await Sensitivity-pansensitive Will try oral Keflex on discharge No acute delirium Clinically stable Will finish 7 days of antibiotic Nausea and vomiting- Likely due to UTI May be 2/2 fecal impaction Other options including but not limited to adverse side effect from medications vs gastritis-CT revealed fecal impaction with no evidence of obstruction. Clinically better this AM Getting Symptomatic medications Resolved Hypoxia-mouth breather, Xray consistent with ILD changes, prednisone given in ER for poss flare, however , Flu negative Received 1 dose of Levaquin Clinically better and does not require any Oxygen Check CXR in AM 09/08/17 Constipation-scheduled Miralax and stool softeners, ambulate early. Had large BM as above. Dementia-end stage, lives in a home No acute Delirium Weakness likely 2/2 pyelo -PT/OT DVT proph-Lovenox Full code-will need to confirm with son in am Likely to be discharged in a day or two. Vital Signs: Date Time Temp Pulse Resp B/P (MAP) Pulse Ox O2 Delivery O2 Flow Rate FiO2 09/07/17 16:00 Room Air 09/07/17 15:19 36.4 80 18 111/71 (84) 93 09/07/17 11:52 36.4 102 16 108/71 (83) 94 09/07/17 08:20 92 Room Air 09/07/17 08:16 36.7 77 18 115/71 (86) 92 Room Air 09/07/17 08:00 Room Air 09/07/17 07:06 36.7 77 18 115/71 (86) 92 09/07/17 00:00 Room Air 09/06/17 23:13 36.7 89 18 128/77 (94) 91 Room Air
[2017-09-07] MEDS: DOCUSATE SODIUM/SENNA 50/8.6MG TAB PO SCH (21:28)
[2017-09-08 00:26] VITALS: BP 115/71; PULSE 67; TEMP 36.5; O2SAT 96
[2017-09-08 07:39] VITALS: BP 127/77; PULSE 69; TEMP 36.5; O2SAT 96
[2017-09-08] MEDS: CHOLECALCIFEROL 1000 INTER.UNIT TAB PO SCH (07:41)
[2017-09-08] MEDS: ENOXAPARIN 40 MG/0.4 ML SYR SC SCH (07:41)
[2017-09-08] MEDS: CEFTRIAXONE SOD INJ 1 GM in DEXTROSE 5% ADD-VANTAGE 50ML 50 ML IV SCH (07:41)
[2017-09-08] MEDS: DONEPEZIL HCL 5 MG TAB PO SCH (07:42)
[2017-09-08] MEDS: LISINOPRIL 5 MG TAB PO SCH (07:42)
[2017-09-08] MEDS: CEROVITE ADV FORMULA TAB PO SCH (07:42)
[2017-09-08] MEDS: SERTRALINE HCL 50 MG TAB PO SCH (07:42)
[2017-09-08] MEDS: POLYETHYLENE (MIRALAX) 17 GM PACK PO SCH (07:42)
[2017-09-08 10:28] LABS: HEMATOCRIT 39.3 % (37-47); HEMOGLOBIN 13.4 g/dL (12.0-16.0); MEAN CELL VOLUME 89.7 fL (80-100); MEAN CORPUSCULAR HEMOGLOBIN 30.6 pg (25-34); MEAN CORPUSCULAR HGB CONC 34.1 g/dl (32-36); MEAN PLATELET VOLUME 9.8 fL (7.4-10.4); PLATELET COUNT 378 K/uL (130-400); RED CELL DISTRIBUTION WIDTH CV 14.3 % (11.5-14.5); RED CELL DISTRIBUTION WIDTH SD 46.9 fL (36.4-46.3); WHITE BLOOD COUNT 8.52 K/uL (4.8-10.8)
[2017-09-08 10:47] LABS: CALCIUM 9.4 mg/dl (8.5-10.1); CREATININE 0.87 mg/dl (0.60-1.20); POTASSIUM 4.3 mmol/L (3.5-5.1)
--- NOTE | 2017-09-08 10:56 | DIAGNOSTIC IMAGING REPORT ---
CHEST ONE VIEW PORTABLE HISTORY: Short of breath. COMPARISON: Chest 09/02/2017. FINDINGS: Slight progression of the perihilar interstitial vascular thickening consistent with mild congestive change. No pleural effusions. No pneumothorax. The heart is normal in size. No new focal lung consolidations. Mediastinal and right hilar calcified lymph nodes are again noted. Postoperative changes within the proximal left humerus. IMPRESSION: Mild central pulmonary vascular congestion without overt edema. Electronically signed by: Kevin Lou M.D. 09/08/2017 10:55 AM Dictated Date/Time: 09/08/2017 10:52 AM
--- NOTE | 2017-09-08 11:42 | Progress Note ---
Internal Med Progress Note Date of Service: Sep 08, 2017. Provider Documentation: SUBJECTIVE: The patient was seen and examined Feels better since admission Seen in presence of te Daughter Questions answered Remains stable Ready to be discharged Denies any symptoms OBJECTIVE: Vital Signs-as noted below Exam: General-No distress at rest Eyes-Normal ENT-normal Neck-Supple Lungs-Minimal bibasilar crackles Heart-Regular Abdomen-Benign,no masses,bowel sound present No tenderness in hypogastrium Extremities-No edema Neuro-AA Pleasantly confused Lab data as noted below. ASSESSMENT & PLAN: 87 yo Alzheimer's dementia patient presents with one week of weakness, and persistent nausea and vomiting intolerant to PO. Constipation Bowel not moved Will try Dulcolax Suppository and Enema If no benefit will get KUB More MOM today Bowel moved No Nausea and or vomiting Will continue stool softener Acute pyelonephritis Levaquin was given to cover for any bronchitis Changed to Ceftriaxone Urine culture-Gm Negative Bacilli Await Sensitivity-pansensitive Will try oral Keflex on discharge No acute delirium Clinically stable Will finish 7 days of antibiotic Will change to oral Keflex Nausea and vomiting- Likely due to UTI May be 2/2 fecal impaction Other options including but not limited to adverse side effect from medications vs gastritis-CT revealed fecal impaction with no evidence of obstruction. Clinically better this AM Getting Symptomatic medications Resolved Hypoxia-mouth breather, Xray consistent with ILD changes, prednisone given in ER for poss flare, however , Flu negative Received 1 dose of Levaquin Clinically better and does not require any Oxygen Check CXR in AM 09/08/17-no CHF,minimal congestion Constipation-scheduled Miralax and stool softeners, ambulate early. Had large BM as above. Dementia-end stage, lives in a home No acute Delirium Weakness likely 2/2 pyelo -PT/OT DVT proph-Lovenox Full code-will need to confirm with son in am Discharge today Vital Signs: Date Time Temp Pulse Resp B/P (MAP) Pulse Ox O2 Delivery O2 Flow Rate FiO2 09/08/17 08:00 Room Air 09/08/17 07:39 36.5 69 18 127/77 (94) 96 09/08/17 00:26 36.5 67 20 115/71 (86) 96 Room Air 09/08/17 00:00 Room Air 09/07/17 16:00 Room Air 09/07/17 15:19 36.4 80 18 111/71 (84) 93 09/07/17 11:52 36.4 102 16 108/71 (83) 94 Lab Results: Results Past 24 Hours Test 09/08/17 10:13 Range/Units White Blood Count 8.52 4.8-10.8 K/uL Red Blood Count 4.38 4.2-5.4 M/uL Hemoglobin 13.4 12.0-16.0 g/dL Hematocrit 39.3 37-47 % Mean Corpuscular Volume 89.7 80-100 fL Mean Corpuscular Hemoglobin 30.6 25-34 pg Mean Corpuscular Hemoglobin Concent 34.1 32-36 g/dl RDW Standard Deviation 46.9 36.4-46.3 fL RDW Coefficient of Variation 14.3 11.5-14.5 % Platelet Count 378 130-400 K/uL Mean Platelet Volume 9.8 7.4-10.4 fL Sodium Level 133 136-145 mmol/L Potassium Level 4.3 3.5-5.1 mmol/L Chloride Level 100 98-107 mmol/L Carbon Dioxide Level 27 21-32 mmol/L Anion Gap 6.0 3-11 mmol/L Blood Urea Nitrogen 17 7-18 mg/dl Creatinine 0.87 0.60-1.20 mg/dl Est Creatinine Clear Calc Drug Dose 34.9 ml/min Estimated GFR () 68.5 Estimated GFR (Non- 59.1 BUN/Creatinine Ratio 19.6 10-20 Random Glucose 116 70-99 mg/dl Calcium Level 9.4 8.5-10.1 mg/dl
[2017-09-08 11:50] VITALS: BP 104/66; PULSE 101; TEMP 36.6; O2SAT 90
[2017-09-08] MEDS ORDERED: CEPHALEXIN MONOHYDRATE 250 MG CAP PO SCH (14:00)
[2017-09-08] MEDS ORDERED: BISACODYL 10 MG SUPP PR STA (14:29)
[2017-09-08] MEDS ORDERED: KFL250 PO ×2 (14:31→14:36)
--- NOTE | 2017-09-08 14:35 | Discharge Instructions ---
Discharge Instructions Date of Service Sep 08, 2017. Admission Reason for Admission: Hypoxia, Nausea And Vomiting Discharge Discharge Diagnosis / Problem: Acute Pyelopephritis,Dementia,Constipation Discharge Goals Goal(s): Prevent Disease Progression Activity Recommendations Activity Level: Assistance Required Therapies: Physical Therapy, Occupational Therapy . Additional Information Patient informed of condition: Yes Advance Directives: No DNR: No Level of Care: Skilled Communicable Disease: No Prognosis: Stable Oxygen at (LPM): 2 liters /min via NC as needd Leon Catheter: No Instructions / Follow-Up Instructions / Follow-Up Please make an appointment with your PCP in 1 week Current Hospital Diet Patient's current hospital diet: Regular Diet Discharge Diet Recommended Diet: Regular Diet (May need to make mechanical soft) Pending Studies Studies pending at discharge: no Medical Emergencies . Who to Call and When: Medical Emergencies: If at any time you feel your situation is an emergency, please call 911 immediately. . Non-Emergent Contact Non-Emergency issues call your: Primary Care Provider . Past History Medical & Surgical History: (1) Nausea and vomiting (2) Constipation (3) Pyelonephritis (4) Urinary tract infection (5) Depression (6) Dementia . "Provider Documentation" section prepared by Althea Babin. . Core Measure Problem Core Measures: None
[2017-09-08 14:41] VITALS: BP 104/66; PULSE 101; TEMP 36.6; O2SAT 90
--- NOTE | 2017-09-09 08:42 | Discharge Summary ---
Discharge Summary Date of Service Sep 09, 2017. Discharge Summary Admission Date: Sep 03, 2017 at 01:33 Discharge Date: Sep 08, 2017 Discharge Disposition: long term facility Principal Diagnosis: Acute Pyelonephritis,Dementia,Constipation Secondary Diagnoses/Problems: Please see H&P and Hospital Progress note Medication Reconciliation New Medications: Cephalexin Monohydrate (Cephalexin) 250 Mg Cap 250 MG PO TID for 5 Days, #15 CAP Continued Medications: Acetaminophen (Tylenol) 500 Mg Tab 500-1000 MG PO Q8H PRN for Pain, TAB Aspirin (Aspirin Ec) 81 Mg Tab 81 MG PO DAILY Bisacodyl (Dulcolax) 10 Mg Sup 1 SUPP MA DAILY PRN for Constipation, SUP Cholecalciferol (Vitamin D3) 2,000 Unit Cap 2000 UNITS PO DAILY for 90 Days, CAP 3 Refills Donepezil HCl (Aricept) 5 Mg Tab 5 MG PO DAILY for 10 Days, #10 TAKE THIS MEDICATION ONCE DAILY WITH LARGEST MEAL OF THE DAY Lisinopril (Prinivil) 5 Mg Tab 5 MG PO DAILY, TAB Magnesium Citrate (Magnesium Citrate) 1.745 Gm/30 Ml Bhavya 1 DOSE PO UD PRN for Constipation Give 1 dose by mouth as needed for constipation 1 bottle at bedtime as needed no significant bowel movement in 4 days Methylcellulose (Laxative) (Citrucel Fiber Laxative) 1 Pow Pow 1 TBS PO QAM Multivitamins/Minerals (Mvi With Minerals) Tab 1 TAB PO DAILY for 10 Days, #10 TAB Ondansetron Hcl (Zofran) 4 Mg Tab 4 MG PO Q4H PRN for Nausea, TAB Oxybutynin Chloride (Ditropan) 5 Mg Tab 5 MG PO BID for 10 Days, #20 TAB Sennosides-Docusate Sodium (Senna S) 1 Tab Tab 2 TABS PO HS Give 2 tablets by mouth at bedtime for constipation. Hold if stools become too loose. Sertraline (Zoloft) 25 Mg Tab 25 MG PO DAILY for 10 Days, #10 TAB Sodium Phosphates (Fleet Enema Six Pack) 1 Osiris Osiris 118 ML MA DAILY PRN for Constipation Insert 118ml rectally as needed for moderate bowel obstruction. Give 2 flleets if nothing comes out with suppository. Admission Information HPI (per Admitting provider): The patient is an 87 yo dementia patient who was brought in from with persistent nausea and vomiting and intolerance of PO. She was noted to have generalized weakness with progressive need for assistance with transfers and ambulation over the past week. She is currently demented and although alert and without delirium, is unable to give me a history. She was reported to have a temp of 99 last night and was given Tylenol with resolution of the temp. In the ER, she was noted to be hypoxic on room air when sleeping and was noted by nurse to be a mouth breather and 84% on room air. The hypoxia resolved with 2L via nasal canula and she is not in respiratory distress at this time. Workup revealed a UTI and she is on oxybutynin at home. She denies any SOB, cough, fevers, chills, abdominal pain, UTI symptoms, pain but she is an unreliable historian and is also unable to follow instructions limiting the physical exam somewhat. Son is her POA who was not at bedside at the time of this examination. Past Medical/Surgical History Medical Problems: (1) Dementia Status: Chronic (2) Depression Status: Chronic Family History Noncontributory due to advanced age Unable to verify family history 2/2 severe dementia Social History Social history obtained from records; unable to verify with the patient who has severe dementia. Smoking Status: Never Smoker Smokeless Tobacco Use: No Alcohol Use: none Drug Use: none Marital Status: other Housing status: care home Occupational Status: retired Immunizations History of Influenza Vaccine: Yes Influenza Vaccine Date: Mar 31, 2016 History of Tetanus Vaccine?: Yes Tetanus Immunization Date: November 24, 2008 History of Pneumococcal: Yes Pneumococcal Date: Apr 23, 2016 History of Hepatitis B Vaccine: No Multi-Drug Resistant Organisms History of MDRO: No Allergies Coded Allergies: No Known Allergies (Unverified , 09/02/17) Home Medications Scheduled Aspirin (Aspirin Ec), 81 MG PO DAILY Cholecalciferol (Vitamin D3), 2,000 UNITS PO DAILY Donepezil HCl (Aricept), 5 MG PO DAILY Lisinopril (Prinivil), 5 MG PO DAILY Methylcellulose (Laxative) (Citrucel Fiber Laxative), 1 TBS PO QAM Multivitamins/Minerals (Mvi With Minerals), 1 TAB PO DAILY Oxybutynin Chloride (Ditropan), 5 MG PO BID Sennosides-Docusate Sodium (Senna S), 2 TABS PO HS Sertraline (Zoloft), 25 MG PO DAILY Scheduled PRN Acetaminophen (Tylenol), 500-1,000 MG PO Q8H PRN for Pain Bisacodyl (Dulcolax), 1 SUPP MA DAILY PRN for Constipation Magnesium Citrate (Magnesium Citrate), 1 DOSE PO UD PRN for Constipation Ondansetron Hcl (Zofran), 4 MG PO Q4H PRN for Nausea Sodium Phosphates (Fleet Enema Six Pack), 118 ML MA DAILY PRN for Constipation Review of Systems ROS was unable to be obtained 2/ patient's level of dementia and impaired memory. Physical Exam Vital Signs Date Time Temp Pulse Resp B/P (MAP) Pulse Ox O2 Delivery O2 Flow Rate FiO2 09/03/17 00:32 98 20 101/63 96 Room Air 2.0 09/02/17 23:14 97 Nasal Cannula 2.0 09/02/17 21:01 96 Nasal Cannula 2.0 09/02/17 21:01 96 Nasal Cannula 2.0 09/02/17 21:00 74 16 132/64 88 Room Air 09/02/17 16:35 36.9 120 17 127/72 96 Room Air General Appearance: no apparent distress, + thin Head: normocephalic, atraumatic Eyes: normal inspection, PERRL, + pertinent finding (mucous membranes moist, dentures. ) ENT: hearing grossly normal, pharynx normal Neck: supple, no adenopathy, trachea midline Respiratory/Chest: chest non-tender, lungs clear (difficult to examine as patient was holding breath and unable to take deep breaths per instructions), normal breath sounds, no respiratory distress, no accessory muscle use Cardiovascular: regular rate, rhythm, no edema, no gallop, no JVD, no murmur Abdomen/GI: normal bowel sounds, non tender, soft Extremities/Musculoskelatal: + pertinent finding (both hands with severe joint disfigurement, moves all extremities with ease. ) Neurologic/Psych: alert, normal mood/affect, + pertinent finding (oriented to self and date only. ) Skin: normal color Diagnostics Laboratory Results 09/03/17 06:25 09/03/17 06:25 Test 09/02/17 18:55 09/02/17 19:11 09/02/17 19:14 09/02/17 19:17 Immature Granulocyte % (Auto) 0.3 % White Blood Count 10.76 K/uL (4.8-10.8) Red Blood Count 4.02 M/uL (4.2-5.4) Hemoglobin 12.3 g/dL (12.0-16.0) Hematocrit 36.0 % (37-47) Mean Corpuscular Volume 89.6 fL (80-100) Mean Corpuscular Hemoglobin 30.6 pg (25-34) Mean Corpuscular Hemoglobin Concent 34.2 g/dl (32-36) Platelet Count 306 K/uL (130-400) Mean Platelet Volume 9.7 fL (7.4-10.4) Neutrophils (%) (Auto) 68.4 % Lymphocytes (%) (Auto) 20.0 % Monocytes (%) (Auto) 9.8 % Eosinophils (%) (Auto) 1.4 % Basophils (%) (Auto) 0.1 % Neutrophils # (Auto) 7.37 K/uL (1.4-6.5) Lymphocytes # (Auto) 2.15 K/uL (1.2-3.4) Monocytes # (Auto) 1.05 K/uL (0.11-0.59) Eosinophils # (Auto) 0.15 K/uL (0-0.5) Basophils # (Auto) 0.01 K/uL (0-0.2) Immature Granulocyte # (Auto) 0.03 K/uL (0.00-0.02) Prothrombin Time 10.7 SECONDS (9.0-12.0) Prothromb Time International Ratio 1.0 (0.9-1.1) Total Bilirubin 0.7 mg/dl (0.2-1) Aspartate Amino Transf (AST/SGOT) 10 U/L (15-37) Alanine Aminotransferase (ALT/SGPT) 23 U/L (12-78) Alkaline Phosphatase 99 U/L (45-117) Total Protein 6.9 gm/dl (6.4-8.2) Albumin 3.0 gm/dl (3.4-5.0) Globulin 3.9 gm/dl (2.5-4.0) Albumin/Globulin Ratio 0.8 (0.9-2) Lipase 129 U/L (73-393) Bedside Lactic Acid Venous 0.86 mmol/L (0.90-1.70) Bedside Troponin I < 0.030 ng/ml (0-0.045) Bedside Hemoglobin 12.2 g/dl (12.0-16.0) Bedside Hematocrit 36 % (37-47) Bedside Sodium 134 mEq/L (135-144) Bedside Potassium 4.1 mEq/L (3.3-5.0) Bedside Chloride 97 mEq/L (101-112) Bedside Total CO2 27 mEq/l (24-31) Bedside Blood Urea Nitrogen 15 mg/dl (7-18) Bedside Creatinine 0.8 mg/dl (0.6-1.3) Bedside Glucose (other) 113 mg/dl (70-99) Bedside Ionized Calcium (Rory) 1.24 mmol/l (1.12-1.32) Test 09/02/17 20:50 09/03/17 06:25 Urine Color YELLOW Urine Appearance CLOUDY (CLEAR) Urine pH 7.0 (4.5-7.5) Urine Specific [place] 1.024 (1.000-1.030) Urine Protein 1+ (NEG) Urine Glucose (UA) NEG (NEG) Urine Ketones NEG (NEG) Urine Occult Blood 2+ (NEG) Urine Nitrite POS (NEG) Urine Bilirubin NEG (NEG) Urine Urobilinogen NEG (NEG) Urine Leukocyte Esterase LARGE (NEG) Urine WBC (Auto) >30 /hpf (0-5) Urine RBC (Auto) 10-30 /hpf (0-4) Urine Hyaline Casts (Auto) 0 /lpf (0-5) Urine Epithelial Cells (Auto) 0-5 /lpf (0-5) Urine Bacteria (Auto) 4+ (NEG) Red Blood Count 3.80 M/uL (4.2-5.4) Mean Corpuscular Volume 90.3 fL (80-100) Mean Corpuscular Hemoglobin 30.3 pg (25-34) Mean Corpuscular Hemoglobin Concent 33.5 g/dl (32-36) RDW Standard Deviation 47.4 fL (36.4-46.3) RDW Coefficient of Variation 14.4 % (11.5-14.5) Mean Platelet Volume 9.7 fL (7.4-10.4) Anion Gap 5.0 mmol/L (3-11) Est Creatinine Clear Calc Drug Dose 34.8 ml/min Estimated GFR () 70.4 Estimated GFR (Non- 60.7 BUN/Creatinine Ratio 15.4 (10-20) Calcium Level 8.8 mg/dl (8.5-10.1) Date/Time Source Procedure Growth Status 09/03/17 02:15 Nasal MRSA DNA Surveillance Screen - Final Specimen Negative for MRSA by DNA Probe Complete 09/02/17 20:50 Urine,Catheterized Urine Culture Pending Received Results Past 24 Hours Test 09/02/17 18:55 09/02/17 19:11 09/02/17 19:14 09/02/17 19:17 Range/Units White Blood Count 10.76 4.8-10.8 K/uL Red Blood Count 4.02 4.2-5.4 M/uL Hemoglobin 12.3 12.0-16.0 g/dL Hematocrit 36.0 37-47 % Mean Corpuscular Volume 89.6 80-100 fL Mean Corpuscular Hemoglobin 30.6 25-34 pg Mean Corpuscular Hemoglobin Concent 34.2 32-36 g/dl Platelet Count 306 130-400 K/uL Mean Platelet Volume 9.7 7.4-10.4 fL Neutrophils (%) (Auto) 68.4 % Lymphocytes (%) (Auto) 20.0 % Monocytes (%) (Auto) 9.8 % Eosinophils (%) (Auto) 1.4 % Basophils (%) (Auto) 0.1 % Neutrophils # (Auto) 7.37 1.4-6.5 K/uL Lymphocytes # (Auto) 2.15 1.2-3.4 K/uL Monocytes # (Auto) 1.05 0.11-0.59 K/uL Eosinophils # (Auto) 0.15 0-0.5 K/uL Basophils # (Auto) 0.01 0-0.2 K/uL RDW Standard Deviation 46.5 36.4-46.3 fL RDW Coefficient of Variation 14.3 11.5-14.5 % Immature Granulocyte % (Auto) 0.3 % Immature Granulocyte # (Auto) 0.03 0.00-0.02 K/uL Sodium Level 133 136-145 mmol/L Potassium Level 4.1 3.5-5.1 mmol/L Chloride Level 99 98-107 mmol/L Carbon Dioxide Level 28 21-32 mmol/L Anion Gap 6.0 16.0 16-25 mmol/L Blood Urea Nitrogen 16 7-18 mg/dl Creatinine 0.83 0.60-1.20 mg/dl Estimated GFR () 72.5 Estimated GFR (Non- 62.5 BUN/Creatinine Ratio 19.4 10-20 Random Glucose 109 70-99 mg/dl Calcium Level 9.3 8.5-10.1 mg/dl Total Bilirubin 0.7 0.2-1 mg/dl Aspartate Amino Transf (AST/SGOT) 10 15-37 U/L Alanine Aminotransferase (ALT/SGPT) 23 12-78 U/L Alkaline Phosphatase 99 45-117 U/L Total Protein 6.9 6.4-8.2 gm/dl Albumin 3.0 3.4-5.0 gm/dl Globulin 3.9 2.5-4.0 gm/dl Albumin/Globulin Ratio 0.8 0.9-2 Lipase 129 73-393 U/L Bedside Lactic Acid Venous 0.86 0.90-1.70 mmol/L Bedside Troponin I < 0.030 0-0.045 ng/ml Bedside Hemoglobin 12.2 12.0-16.0 g/dl Bedside Hematocrit 36 37-47 % Bedside Sodium 134 135-144 mEq/L Bedside Potassium 4.1 3.3-5.0 mEq/L Bedside Chloride 97 101-112 mEq/L Bedside Total CO2 27 24-31 mEq/l Bedside Blood Urea Nitrogen 15 7-18 mg/dl Bedside Creatinine 0.8 0.6-1.3 mg/dl Bedside Glucose (other) 113 70-99 mg/dl Bedside Ionized Calcium (Rory) 1.24 1.12-1.32 mmol/l Test 09/02/17 20:50 Range/Units Urine Color YELLOW Urine Appearance CLOUDY CLEAR Urine pH 7.0 4.5-7.5 Urine Specific [place] 1.024 1.000-1.030 Urine Protein 1+ NEG Urine Glucose (UA) NEG NEG Urine Ketones NEG NEG Urine Occult Blood 2+ NEG Urine Nitrite POS NEG Urine Bilirubin NEG NEG Urine Urobilinogen NEG NEG Urine Leukocyte Esterase LARGE NEG Urine WBC (Auto) >30 0-5 /hpf Urine RBC (Auto) 10-30 0-4 /hpf Urine Hyaline Casts (Auto) 0 0-5 /lpf Urine Epithelial Cells (Auto) 0-5 0-5 /lpf Urine Bacteria (Auto) 4+ NEG Microbiology Results 09/02/17 Urine Culture, Received Pending Diagnostic Radiology CHEST ONE VIEW PORTABLE CLINICAL HISTORY: 87 years-old Female presenting with hypoxia. TECHNIQUE: Portable upright AP view of the chest was obtained. COMPARISON: 09/02/2017 at 7:01 PM. FINDINGS: Atherosclerosis of the aortic arch. Cardiac silhouette normal in size. Multiple calcified right hilar and mediastinal lymph nodes. Lungs and pleural spaces clear. Plate and screw fixation of the proximal left humerus. Upper abdomen normal. IMPRESSION: 1. No acute cardiopulmonary disease. 2. Evidence of old granulomatous disease. ABD/PELVIS IV CONTRAST ONLY CLINICAL HISTORY: 87 years-old Female presenting with vomiting. TECHNIQUE: Multidetector CT of the abdomen and pelvis was performed after the administration of intravenous contrast. IV contrast: 93 mL of Optiray 320. A dose lowering technique was used consistent with the principles of ALARA (as low as reasonably achievable). COMPARISON: 02/07/2017. CT DOSE (mGy.cm): The estimated cumulative dose is 512.95 mGy.cm. FINDINGS: Mmi Teacher topogram: Unremarkable. Lung bases: Extensive basilar opacities, likely atelectasis. Calcified right hilar and mediastinal lymphadenopathy noted. Heart top normal in size. Aortic valve calcification. No pericardial or pleural effusion. Liver: Normal morphology. Multiple calcifications likely related to history of chronic granulomatous infection. No focal lesion. Patent hepatic vasculature. Biliary: No intrahepatic or extrahepatic biliary ductal dilatation. Gallbladder contains gallstones. Pancreas: Mild parenchymal atrophy. Spleen: Numerous splenic for internal calcifications also likely relate to chronic granulomatous infection. Adrenal glands: Normal. Kidneys and ureters: Well-defined hypodensity with thin mural calcification at the right lower pole likely minimally complex cyst and grossly unchanged from prior exam, again measuring approximately 2.1 cm. Significant urothelial thickening on the right. No hydronephrosis or nephrolithiasis. Urothelial thickening is new from prior exam. The distal ureters are poorly visualized. Bladder: Normal. Pelvic organs: Mass in the region of the right adnexa is likely ovarian in origin. The right ovary measures 4.5 cm in diameter, which is stable to slightly decreased in size comparison to prior exam. Left ovary normal. No convincing evidence of uterine fibroid. Bowel: Large stool burden in the distended rectum with mild rectal wall thickening and mild mesorectal fat infiltration. Moderate stool burden noted elsewhere in the mildly distended colon. Diverticulosis of the sigmoid colon. Medialization of the cecum. Appendix not visualized. No bowel obstruction. Small hilar hernia suspected. A duodenal diverticula may also be present at the level of the pancreatic head. Peritoneal cavity: No free fluid or intraperitoneal gas. Lymph nodes: No enlarged lymph nodes in the abdomen or pelvis. Vasculature: Atherosclerosis of the normal caliber abdominal aorta. IVC patent. Abdominal wall: Diastasis of the rectus abdominis. Musculoskeletal: Degenerative changes of the spine. IMPRESSION: 1. Large stool burden in the distended rectum with evidence suggesting early stercoral proctitis. No bowel obstruction or other evidence of acute bowel pathology. 2. Interval development of significant urothelial thickening of the right renal collecting system and right ureter. This could indicate upper tract infection. Correlate with urinalysis. Underlying neoplasm is considered less likely given the diffuse appearance. No hydronephrosis. 3. Evidence of chronic granulomatous infection. 4. Abnormally enlarged right ovary for the patient's postmenopausal age. Further evaluation with ultrasound on a nonurgent basis is recommended given the concern for underlying neoplasm. 5. Extensive bibasilar atelectasis. SINGLE VIEW CHEST CLINICAL HISTORY: Progressive weakness. FINDINGS: An AP, portable, upright chest radiograph is compared to study dated 05/26/2017. The examination is degraded by portable technique and patient rotation. The heart is top normal for projection and there is atherosclerotic calcification of the thoracic aorta. The pulmonary vasculature is noncongested. Calcified mediastinal and hilar lymph nodes are observed. Chronic interstitial thickening is similar to previous. There are low lung volumes and left basilar atelectasis. No airspace consolidation, large pleural effusion, or pneumothorax is seen. The skeletal structures are osteopenic. Chronic posttraumatic deformity and postoperative change is seen in the left humerus. IMPRESSION: No acute cardiopulmonary abnormality. EKG SR 72 Impression Assessment and Plan 87 yo Alzheimer's dementia patient presents with one week of weakness, and persistent nausea and vomiting intolerant to PO. 1. Nausea and vomiting- likely 2/2 fecal impaction with other options including but not limited to adverse side effect from medications vs gastritis- CT revealed fecal impaction with no evidence of obstruction. Nausea is currently controlled with enema-trial of food in the morning. Zofran PRN. 2. Acute pyelonephritis-Levaquin given to cover for any bronchitis? and UTI empirically, culture is pending. Pt not septic 3. Hypoxia-mouth breather, xray consistent with ILD changes, prednisone given in ER for poss flare, however, pt is not in distress and there are no reports of URI symptoms such as cough or SOB from nursing staff at home. Flu swab pending. Levaquin given to cover poss pulmonary infection. Denies cough or other resp symptoms but is unreliable historian. She does not appear ill from a respiratory standpoint and CXR is clear. Would hold off on further Levaquin ( she is getting some coverage with the Rocephin) and no more prednisone at this time unless hypoxia does not resolve. If ILD flare suspected, would also consider consulting pulmonary. 4. Constipation-scheduled Miralax and stool softeners, ambulate early. Had large BM as above. 5. Dementia-end stage, lives in a home. 6. Weakness likely 2/2 pyelo -PT/OT DVT proph-Lovenox Full code-will need to confirm with son in am Dispo-telemetry with new hypoxia [facility] Prophyl[facility] VTE Risk Assessment Done? Y/N: Yes Risk Level: Moderate Given or contraindicated: Enoxaparin (Lovenox)SQ <Electronically signed by Shy Arora DO> Signed: 09/03/17 0838 Physical Exam (per Admitting): General Appearance: no apparent distress, + thin Head: normocephalic, atraumatic Eyes: normal inspection, PERRL, + pertinent finding (mucous membranes moist , dentures. ) ENT: hearing grossly normal, pharynx normal Neck: supple, no adenopathy, trachea midline Respiratory/Chest: chest non-tender, lungs clear (difficult to examine as patient was holding breath and unable to take deep breaths per instructions), normal breath sounds, no respiratory distress, no accessory muscle use Cardiovascular: regular rate, rhythm, no edema, no gallop, no JVD, no murmur Abdomen/GI: normal bowel sounds, non tender, soft Extremities/Musculoskelatal: + pertinent finding (both hands with severe joint disfigurement, moves all extremities with ease. ) Neurologic/Psych: alert, normal mood/affect, + pertinent finding (oriented to self and date only. ) Skin: normal color Hospital Course 87 yo Alzheimer's dementia patient presents with one week of weakness, and persistent nausea and vomiting intolerant to PO. Constipation Bowel not moved Will try Dulcolax Suppository and Enema If no benefit will get KUB More MOM today Bowel moved No Nausea and or vomiting Will continue stool softener Acute pyelonephritis Levaquin was given to cover for any bronchitis Changed to Ceftriaxone Urine culture-Gm Negative Bacilli Await Sensitivity-pansensitive Will try oral Keflex on discharge No acute delirium Clinically stable Will finish 7 days of antibiotic Will change to oral Keflex Nausea and vomiting- Likely due to UTI May be 2/2 fecal impaction Other options including but not limited to adverse side effect from medications vs gastritis-CT revealed fecal impaction with no evidence of obstruction. Clinically better this AM Getting Symptomatic medications Resolved Hypoxia-mouth breather, Xray consistent with ILD changes, prednisone given in ER for poss flare, however , Flu negative Received 1 dose of Levaquin Clinically better and does not require any Oxygen Check CXR in AM 09/08/17-no CHF,minimal congestion Constipation-scheduled Miralax and stool softeners, ambulate early. Had large BM as above. Dementia-end stage, lives in a home No acute Delirium Weakness likely 2/2 pyelo -PT/OT DVT proph-Lovenox Full code-will need to confirm with son in am Discharge today Total time spent on discharge = 35 minutes This includes examination of the patient, discharge planning, medication reconciliation, and communication with other providers. Discharge Instructions Date of Service Sep 08, 2017. Admission Reason for Admission: Hypoxia, Nausea And Vomiting Discharge Discharge Diagnosis / Problem: Acute Pyelopephritis,Dementia,Constipation Discharge Goals Goal(s): Prevent Disease Progression Activity Recommendations Activity Level: Assistance Required Therapies: Physical Therapy, Occupational Therapy . Additional Information Patient informed of condition: Yes Advance Directives: No DNR: No Level of Care: Skilled Communicable Disease: No Prognosis: Stable Oxygen at (LPM): 2 liters /min via NC as needd Leon Catheter: No Instructions / Follow-Up Instructions / Follow-Up Please make an appointment with your PCP in 1 week Current Hospital Diet Patient's current hospital diet: Regular Diet Discharge Diet Recommended Diet: Regular Diet (May need to make mechanical soft) Pending Studies Studies pending at discharge: no Medical Emergencies . Who to Call and When: Medical Emergencies: If at any time you feel your situation is an emergency, please call 911 immediately. . Non-Emergent Contact Non-Emergency issues call your: Primary Care Provider . Past History Medical & Surgical History: (1) Nausea and vomiting (2) Constipation (3) Pyelonephritis (4) Urinary tract infection (5) Depression (6) Dementia . "Provider Documentation" section prepared by Althea Babin. . Core Measure Problem Core Measures: None <Electronically signed by Althea Babin M.D.> Additional Copies To Paulette Perales D.O.
== END 2017-09-08 17:30 | DRG 389 ==
LOC: C.EDB 16:26 → C.MED 09-03 01:33 → ENRESERV 09-03 01:46
PROVIDERS: ADMIT Hospitalist; ATTEND Internal Medicine
DX: K56.41 Fecal impaction (principal); N10 Acute pyelonephritis; N39.0 Urinary tract infection, site not specified; J84.9 Interstitial pulmonary disease, unspecified; R11.2 Nausea with vomiting, unspecified; R09.02 Hypoxemia; G30.9 Alzheimer's disease, unspecified; F02.80 Dementia in other diseases classified elsewhere, unspecified severity, without behavioral disturbance, psychotic disturbance, mood disturbance, and anxiety; Z79.82 Long term (current) use of aspirin; Z79.899 Other long term (current) drug therapy